=== PATIENT | male | born 1945 | race Caucasian/White ===

== ENCOUNTER → 2016-11-21 | Outpatient (CLI) | payer MEDICARE, OTHER ==
--- NOTE | 2016-11-21 10:49 | REP ---
TWO VIEW CHEST: Two views of the chest are performed. Comparison 05/07/2014. Possible 2.5 cm nodular opacity is seen inferiorly and posteriorly on the lateral view. I see no infiltrate bilaterally. The heart is normal in size. There is mild calcification and tortuosity of the thoracic aorta. The mediastinal silhouette is unremarkable and unchanged. There are degenerative changes of the spine. IMPRESSION: Possible nodule inferiorly and posteriorly as seen on the lateral view. Recommend CT of the chest to further evaluate. Signed by Fer Lopez MD 11/21/2016 03:53 P
== END ==
LOC: M SMT 10:02
PROVIDERS: ATTEND Physician Assistant
DX: J45.901 Unspecified asthma with (acute) exacerbation (principal)
CPT/HCPCS: 71020; 94010; 96372; G0463; J1040

== ENCOUNTER → 2016-11-22 | Outpatient (CLI) | payer MEDICARE, OTHER ==
[2016-11-22 18:07] LABS: ANION GAP 4 MEQ/L (8-16); BLOOD UREA NITROGEN 21 MG/DL (7-18); CALCIUM LEVEL 9.1 MG/DL (8.8-10.2); CARBON DIOXIDE LEVEL 31 MEQ/L (21-32); CHLORIDE LEVEL 103 MEQ/L (98-107); CREATININE FOR GFR 0.96 MG/DL (0.70-1.30); GLOMERULAR FILTRATION RATE > 60.0 (>42); GLUCOSE, FASTING 141 MG/DL (83-110); POTASSIUM SERUM 4.5 MEQ/L (3.5-5.1); SODIUM LEVEL 138 MEQ/L (136-145)
== END ==
LOC: M SMT 13:54
PROVIDERS: ATTEND Physician Assistant
DX: R93.8 Abnormal findings on diagnostic imaging of other specified body structures (principal)

== ENCOUNTER → 2016-11-25 | Outpatient (CLI) | payer MEDICARE, OTHER ==
[~2016-11-25] MED LIST: ISOVUE-370 76% 100ML VIAL (Q9967) As Ordered ONE
--- NOTE | 2016-11-25 09:34 | REP ---
CT of the chest with IV contrast: Comparison is the PA and lateral plain film study dated 11/21/2016 demonstrated a possible mass superimposed over the posterior aspect of the approximate T10 vertebral body on the lateral view. There are no masses or nodules. There are no infiltrates or effusions. 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 There is marked hypertrophy accompanying the osteoarthritic changes at the T10 level on the right, likely accounting for the mass-like density on the comparison plain film study. There is no mediastinal or hilar adenopathy. There is no axillary adenopathy. The thoracic aorta is unremarkable. Cardiac size is normal. There is no pericardial effusion. The visualized upper abdominal contents are unremarkable. There is no adrenal mass. Impression: There are no lung masses or nodules. There is marked hypertrophy associated with osteoarthritic changes at the costovertebral junction of the right tenth rib, likely accounting for the mass-like density on the comparison plain film study. Signed by Fer Lyons MD 11/25/2016 09:25 A
== END ==
LOC: M RAD 08:17
PROVIDERS: ATTEND Physician Assistant
DX: R91.8 Other nonspecific abnormal finding of lung field (principal)
CPT/HCPCS: 71260; Q9967

== ENCOUNTER → 2017-05-04 | Outpatient (CLI) | payer MEDICARE, OTHER ==
[2017-05-04 07:09] LABS: MEAN CORPUSCULAR HGB CONC 34.1 g/dl (32.0-36.5); RED CELL DISTRIBUTION WIDTH 12.4 % (11.5-14.5); WHITE BLOOD COUNT 5.7 K/mm3 (4.0-10.0)
[2017-05-04 07:42] LABS: ALBUMIN 3.8 GM/DL (3.2-5.2); ALBUMIN/GLOBULIN RATIO 1.27 (1.00-1.93); ALKALINE PHOSPHATASE 35 U/L (45-117); ALT/SGPT 26 U/L (12-78); ANION GAP 5 MEQ/L (8-16); AST/SGOT 20 U/L (15-37); BILIRUBIN,TOTAL 0.4 MG/DL (0.2-1.0); BLOOD UREA NITROGEN 17 MG/DL (7-18); CALCIUM LEVEL 8.6 MG/DL (8.8-10.2); CARBON DIOXIDE LEVEL 32 MEQ/L (21-32); CHLORIDE LEVEL 102 MEQ/L (98-107); CHOLESTEROL LEVEL 138 MG/DL (<200); FREE T4 0.92 NG/DL (0.76-1.46); GLOMERULAR FILTRATION RATE > 60.0 (>42); GLUCOSE, FASTING 84 MG/DL (83-110); POTASSIUM SERUM 4.5 MEQ/L (3.5-5.1); SODIUM LEVEL 139 MEQ/L (136-145); TOTAL PROTEIN 6.8 GM/DL (6.4-8.2); TRIGLYCERIDES LEVEL 79 MG/DL (<150)
[2017-05-04 09:36] LABS: FOLATE 15.1 NG/ML (>5.4); VITAMIN B12 LEVEL 174 PG/ML (247-911)
[2017-05-06 00:08] LABS: Lyme Disease IgG/IgM Antibodie <0.91 ISR (0.00-0.90); Lyme Disease IgM Ab Quantitati <0.80 index (0.00-0.79)
== END ==
LOC: M LAB 06:14
PROVIDERS: ATTEND Family Medicine
DX: R53.83 Other fatigue (principal); E78.00 Pure hypercholesterolemia, unspecified; W57.XXXA Bitten or stung by nonvenomous insect and other nonvenomous arthropods, initial encounter; S30.861A Insect bite (nonvenomous) of abdominal wall, initial encounter; Y92.9 Unspecified place or not applicable; Y93.9 Activity, unspecified; Y99.9 Unspecified external cause status

== ENCOUNTER → 2018-01-24 | Outpatient (REF) | payer MEDICARE, OTHER, SELFPAY | LOC: M SFHCLERA 13:41 | DX: L82.1 Other seborrheic keratosis (principal) | CPT/HCPCS: 88305 ==

== ENCOUNTER → 2018-04-16 | Outpatient (REF) | payer MEDICARE, OTHER ==
[2018-04-16 19:00] LABS: BASO % 0.3 % (0.0-1.0); EOS # 0.1 10^3/uL (0.0-0.50); EOS % 0.7 % (0.0-3.0); HEMATOCRIT 43.3 % (42.0-52.0); HEMOGLOBIN 14.8 g/dl (13.5-17.5); IMMATURE GRANULOCYTE % 0.3 % (0-3.0); LYMPH # 1.1 10^3/uL (1.5-4.5); LYMPH % 15.3 % (24.0-44.0); MEAN CORPUSCULAR HEMOGLOBIN 32.9 pg (27.0-33.0); MEAN CORPUSCULAR HGB CONC 34.2 g/dl (32.0-36.5); MEAN CORPUSCULAR VOLUME 96.2 fl (80.0-96.0); MONO # 0.7 10^3/uL (0.0-0.8); MONO % 9.6 % (0.0-5.0); NEUTROPHILS # 5.2 10^3/uL (1.8-7.7); NEUTROPHILS % 73.8 % (36.0-66.0); PLATELET COUNT, AUTOMATED 169 10^3/uL (150-450); RED CELL DISTRIBUTION WIDTH 12.5 % (11.5-14.5); WHITE BLOOD COUNT 7.1 10^3/uL (4.0-10.0)
[2018-04-16 19:25] LABS: ALBUMIN 3.9 GM/DL (3.2-5.2); ALBUMIN/GLOBULIN RATIO 1.18 (1.00-1.93); ALKALINE PHOSPHATASE 44 U/L (45-117); ALT/SGPT 25 U/L (12-78); ANION GAP 10 MEQ/L (8-16); AST/SGOT 20 U/L (7-37); BILIRUBIN,TOTAL 0.6 MG/DL (0.2-1.0); BLOOD UREA NITROGEN 18 MG/DL (7-18); CARBON DIOXIDE LEVEL 25 MEQ/L (21-32); CHLORIDE LEVEL 103 MEQ/L (98-107); GLOMERULAR FILTRATION RATE > 60.0 (>42); GLUCOSE, FASTING 108 MG/DL (70-100); POTASSIUM SERUM 4.2 MEQ/L (3.5-5.1); SODIUM LEVEL 138 MEQ/L (136-145); TOTAL PROTEIN 7.2 GM/DL (6.4-8.2)
== END ==
LOC: M SFHCPLAZ 14:40
DX: R19.7 Diarrhea, unspecified (principal)
CPT/HCPCS: 80053

== ENCOUNTER → 2018-05-01 | Outpatient (CLI) | payer MEDICARE, OTHER | LOC: M ADAMS 10:19 | DX: M51.34 Other intervertebral disc degeneration, thoracic region (principal); R91.8 Other nonspecific abnormal finding of lung field; R05 Cough; I11.9 Hypertensive heart disease without heart failure; E78.4 Other hyperlipidemia | CPT/HCPCS: 82607 ==

== ENCOUNTER → 2019-07-02 | Outpatient (REF) | payer MEDICARE, OTHER ==
[2019-07-02 11:20] LABS: HEMOGLOBIN 14.4 g/dl (13.5-17.5); MEAN CORPUSCULAR HEMOGLOBIN 34.2 pg (27.0-33.0); MEAN CORPUSCULAR HGB CONC 32.7 g/dl (32.0-36.5); MEAN CORPUSCULAR VOLUME 104.5 fl (80.0-96.0); PLATELET COUNT, AUTOMATED 188 10^3/uL (150-450); RED BLOOD COUNT 4.21 10^6/uL (4.30-6.10); WHITE BLOOD COUNT 7.7 10^3/uL (4.0-10.0)
[2019-07-02 11:55] LABS: ALBUMIN 3.7 GM/DL (3.2-5.2); ALT/SGPT 26 U/L (12-78); BILIRUBIN,TOTAL 0.6 MG/DL (0.2-1.0); BLOOD UREA NITROGEN 15 MG/DL (7-18); CARBON DIOXIDE LEVEL 30 MEQ/L (21-32); CHLORIDE LEVEL 106 MEQ/L (98-107); CHOLESTEROL LEVEL 146 MG/DL (<200); CHOLESTEROL RISK RATIO 2.179 (<5); CREATININE FOR GFR 0.97 MG/DL (0.70-1.30); GLOMERULAR FILTRATION RATE > 60.0 (>42); GLUCOSE, FASTING 89 MG/DL (70-100); HDL CHOLESTEROL 67 MG/DL (>40); LDL CHOLESTEROL 62 MG/DL (<100); NON-HDL-C 79 MG/DL; POTASSIUM SERUM 5.2 MEQ/L (3.5-5.1); SODIUM LEVEL 141 MEQ/L (136-145); TOTAL PROTEIN 6.9 GM/DL (6.4-8.2); TRIGLYCERIDES LEVEL 84 MG/DL (<150)
[2019-07-02 11:57] LABS: VITAMIN B12 LEVEL 1238 PG/ML (247-911)
== END ==
LOC: M SFHCADAM 09:03
PROVIDERS: ATTEND Family Medicine
DX: E53.8 Deficiency of other specified B group vitamins (principal); E78.5 Hyperlipidemia, unspecified; I11.9 Hypertensive heart disease without heart failure
CPT/HCPCS: 80053; 80061; 82607; 85027; G0463

== ENCOUNTER 2019-07-22 09:03 | Emergency (ER) | payer MEDICARE, OTHER ==
[~2019-07-22] VITALS: Ht 177.8 cm; Wt 91.4 kg
[2019-07-22] MEDS ORDERED: EPLE25TA (09:11)
[2019-07-22] MEDS ORDERED: ASPI81TA33 (09:11)
[2019-07-22] MEDS ORDERED: SILO8CAP (09:11)
[2019-07-22] MEDS ORDERED: MONT10TA2 (09:11)
[2019-07-22] MEDS ORDERED: IPRATROPIUM 0.5MG/ALBUTEROL 2.5MG INH SOL UD 3ML (DUONEB)(J7620) NEB ONE (09:30)
[2019-07-22 09:44] LABS: BASO % 0.5 % (0.0-1.0); EOS # 0.4 10^3/uL (0.0-0.5); EOS % 4.7 % (0.0-3.0); HEMATOCRIT 44.6 % (42.0-52.0); HEMOGLOBIN 14.8 g/dl (13.5-17.5); LYMPH # 2.6 10^3/uL (1.5-5.0); LYMPH % 32.1 % (24.0-44.0); MEAN CORPUSCULAR HEMOGLOBIN 33.2 pg (27.0-33.0); MEAN CORPUSCULAR HGB CONC 33.2 g/dl (32.0-36.5); MONO # 0.7 10^3/uL (0.0-0.8); MONO % 8.9 % (0.0-5.0); NEUTROPHILS # 4.3 10^3/uL (1.5-8.5); NEUTROPHILS % 52.8 % (36.0-66.0); PLATELET COUNT, AUTOMATED 182 10^3/uL (150-450); RED BLOOD COUNT 4.46 10^6/uL (4.30-6.10); WHITE BLOOD COUNT 8.1 10^3/uL (4.0-10.0)
--- NOTE | 2019-07-22 10:01 | REP ---
Clinical: Cough and shortness of breath. Technique: PA and lateral. Comparison: 05/01/2018. Findings: Mediastinum and cardiac silhouette stable. Lung vergara are clear. No acute consolidation, effusion, or pneumothorax. Skeletal structures intact. Impression: Stable chest x-ray. No acute cardiopulmonary process appreciated. Electronically Signed by Josh Raygoza MD 07/22/2019 09:52 A
[2019-07-22 10:09] LABS: INFLUENZA A AMPLIFICATION NEGATIVE (NEGATIVE); INFLUENZA B AMPLIFICATION NEGATIVE (NEGATIVE)
[2019-07-22 10:17] LABS: BLOOD UREA NITROGEN 16 MG/DL (7-18); CALCIUM LEVEL 8.9 MG/DL (8.8-10.2); CARBON DIOXIDE LEVEL 28 MEQ/L (21-32); CHLORIDE LEVEL 105 MEQ/L (98-107); GLOMERULAR FILTRATION RATE > 60.0 (>42); GLUCOSE, FASTING 97 MG/DL (70-100); NT-PRO BNP 22 PG/ML (<450); POTASSIUM SERUM 4.4 MEQ/L (3.5-5.1); SODIUM LEVEL 139 MEQ/L (136-145)
[2019-07-22 10:46] VITALS: BP 163/83
[2019-07-22] MEDS ORDERED: BENZ200C70 PO (11:10)
[2019-07-22] MEDS ORDERED: MUCI600T31 PO (11:10)
[2019-07-22] MEDS ORDERED: VENTAER INH (11:10)
== END 2019-07-22 11:18 | disposition home or self-care (01) ==
LOC: M ED 09:03
DX: J45.901 Unspecified asthma with (acute) exacerbation (principal); C61 Malignant neoplasm of prostate; I10 Essential (primary) hypertension; Z79.51 Long term (current) use of inhaled steroids; Z79.82 Long term (current) use of aspirin; Z79.899 Other long term (current) drug therapy

== ENCOUNTER → 2020-04-13 | Outpatient (CLI) | payer MEDICARE, OTHER ==
[~2020-04-13] MED LIST changes: +ASPI81TA33; +BENZ200C70 PO; +EPLE25TA; -ISOVUE-370 76% 100ML VIAL (Q9967) As Ordered ONE; +MONT10TA4; +MUCI600T31 PO; +SILO8CAP; +VENTAER INH
[2020-04-13 06:55] LABS: BASO % 0.6 % (0.0-1.0); EOS # 0.2 10^3/uL (0.0-0.5); EOS % 3.4 % (0.0-3.0); HEMATOCRIT 42.5 % (42.0-52.0); HEMOGLOBIN 14.5 g/dl (13.5-17.5); LYMPH # 2.7 10^3/uL (1.5-5.0); MEAN CORPUSCULAR HEMOGLOBIN 33.3 pg (27.0-33.0); MEAN CORPUSCULAR HGB CONC 34.1 g/dl (32.0-36.5); MEAN CORPUSCULAR VOLUME 97.5 fl (80.0-96.0); MONO # 0.8 10^3/uL (0.0-0.8); MONO % 12.5 % (0.0-5.0); NEUTROPHILS # 2.9 10^3/uL (1.5-8.5); NEUTROPHILS % 42.9 % (36.0-66.0); PLATELET COUNT, AUTOMATED 181 10^3/uL (150-450); RED BLOOD COUNT 4.36 10^6/uL (4.30-6.10); WHITE BLOOD COUNT 6.7 10^3/uL (4.0-10.0)
[2020-04-13 07:58] LABS: ALBUMIN 3.9 GM/DL (3.2-5.2); ALT/SGPT 27 U/L (12-78); BILIRUBIN,TOTAL 0.4 MG/DL (0.2-1.0); BLOOD UREA NITROGEN 18 MG/DL (7-18); CALCIUM LEVEL 9.1 MG/DL (8.8-10.2); CARBON DIOXIDE LEVEL 31 MEQ/L (21-32); CHLORIDE LEVEL 104 MEQ/L (98-107); CHOLESTEROL LEVEL 169 MG/DL (<200); CHOLESTEROL RISK RATIO 3.129 (<5); CREATININE FOR GFR 0.91 MG/DL (0.70-1.30); GLOMERULAR FILTRATION RATE > 60.0 (>42); GLUCOSE, FASTING 94 MG/DL (70-100); HDL CHOLESTEROL 54 MG/DL (>40); LDL CHOLESTEROL 100 MG/DL (<100); NON-HDL-C 115 MG/DL; POTASSIUM SERUM 4.5 MEQ/L (3.5-5.1); SODIUM LEVEL 138 MEQ/L (136-145); TRIGLYCERIDES LEVEL 75 MG/DL (<150)
== END ==
LOC: M LAB 06:04
PROVIDERS: ATTEND Family Medicine
DX: J45.909 Unspecified asthma, uncomplicated (principal); I10 Essential (primary) hypertension

== ENCOUNTER → 2020-04-21 | Outpatient (CLI) | payer MEDICARE, OTHER ==
[2020-04-21 10:14] LABS: BLOOD UREA NITROGEN 25 MG/DL (7-18); CALCIUM LEVEL 9.6 MG/DL (8.8-10.2); CARBON DIOXIDE LEVEL 27 MEQ/L (21-32); CHLORIDE LEVEL 106 MEQ/L (98-107); CREATININE FOR GFR 1.08 MG/DL (0.70-1.30); GLOMERULAR FILTRATION RATE > 60.0 (>42); GLUCOSE, FASTING 81 MG/DL (70-100); POTASSIUM SERUM 4.6 MEQ/L (3.5-5.1); SODIUM LEVEL 140 MEQ/L (136-145)
== END ==
LOC: M LAB 08:54
PROVIDERS: ATTEND Family Medicine
DX: I11.9 Hypertensive heart disease without heart failure (principal)

== ENCOUNTER → 2020-09-02 | Outpatient (REF) | payer MEDICARE, OTHER ==
[~2020-09-02] MED LIST changes: +MONT10TA10; -MONT10TA4
== END ==
LOC: M SFHCADAM 16:28
PROVIDERS: ATTEND Family Medicine
DX: R19.7 Diarrhea, unspecified (principal)
CPT/HCPCS: G0463; U0003

== ENCOUNTER → 2020-09-03 | Outpatient (REF) | payer MEDICARE, OTHER ==
[~2020-09-03] MED LIST changes: -MONT10TA10; +MONT5TAB2
== END ==
LOC: M LAB REF 09:30
PROVIDERS: ATTEND Family Medicine
DX: R19.7 Diarrhea, unspecified (principal)

== ENCOUNTER → 2020-10-07 | Outpatient (CLI) | payer MEDICARE, OTHER ==
[~2020-10-07] MED LIST changes: -ASPI81TA33; +ASPI81TA33 PO; +CHOL4PW PO; -EPLE25TA; +EPLE25TA PO; +LOSA50TA88 PO; +MONT10TA10; -MONT5TAB2; +RAPA8CAP4 PO
== END ==
LOC: M LABSMTC 10:08
PROVIDERS: ATTEND Anesthesiology
DX: Z01.812 Encounter for preprocedural laboratory examination (principal); Z20.822 Contact with and (suspected) exposure to COVID-19

== ENCOUNTER 2020-10-12 13:20 | Day surgery (SDC) | payer MEDICARE, OTHER ==
[~2020-10-12] VITALS: Ht 177.8 cm; Wt 94.3 kg
[~2020-10-12 13:20] MED LIST changes: +NS 1,000 ML IV ONE
--- OUTSIDE RECORDS SUMMARY | 2020-10-12 13:25 | CCD | Continuity of Care Document ---
Author Author Robin DIAS M.D. Organization Unknown Address [address] [place] [address] Phone [phone] Care Team Providers Care Lithographic Press Operator Name Role Phone Robbin Mcdonough M.D. AUTM [phone] Problems Active Problems Provider Date Diarrhea Rayo Dias M.D. Onset: 10/01/19 21 Screening for malignant neoplasm of colon Josh NavarroNPavithra Onset: 10/02/2012 Social History Type Date Description Comments Sex Unknown ETOH Use Occasionally Tobacco Use Start: Unknown Patient has never smoked Allergies, Adverse Reactions, Alerts Description No Known Drug Allergies Medications Active Medications SIG Qnty Indications Ordering Provide r Date Sutab [id number] Tablets as directed 1box Rayo Dias M.D. 10/01/2020 Cholestyramine 4gm Packet Use 1 Packet Mixed With Water Or Non Carbonated Drink Daily U nknown Eplerenone 25mg Tablets Kayce Owen,DO Losartan Potassium 50mg Tablets Take 1 Tablet By Mouth Every Day Unknown Montelukast Sodium 10mg Tablets TK 1 T PO qd Unknown Silodosin 8mg Capsules Take 1 Capsule By Mouth After Dinner Unknown Zenpep [id number] Caps DR Part Unknown Aspirin Ec Low Dose 81mg Tablets DR Unknown Immunizations Description No Information Available Vital Signs Date Vital Result Comment 10/01/2020 3:27pm Height 70 inches 5'10" Weight 209.00 lb BP Systolic 132 mmHg BP Diastolic 84 mmHg Heart Rate 77 /min BMI (Body Mass Index) 30.0 kg/m2 Weight 94.802 kg Body Temperature 97.5 F 10/02/2012 9:36am Height 70 inches 5'10" Weight 213.00 lb BP Systolic 120 mmHg BP Diastolic 82 mmHg Heart Rate 66 /min BMI (Body Mass Index) 30.6 kg/m2 Weight 96.617 kg Results Description No Information Available Procedures Description No Information Available Medical Devices Description No Information Available Encounters Description No Information Available Assessments Date Code Description Provider 10/01/2020 R19.4 Altered bowel function Rayo Dias M.D. Plan of Treatment Future Appointment(s):* 10/12/2020 2:30 pm - Rayo Dias M.D. at Main Office 10/01/2020 - Rayo Dias M.D.* R19.4 Altered bowel function* Comments:* 75 yo wm who presents for a colonoscopy due to a h/o diarrhea since . Last scope was in 2012. No c/o abdominal pain, weight loss, change in bowel habits, or rectal bleeding. No family h/o colon cancer. No h/o chest pain, or sob. Plan:1.Set up colonoscopy + biopsies.2.Informed consent given. Functional Status Description No Information Available Mental Status Description No Information Available Referrals Description No Information Available
--- OUTSIDE RECORDS SUMMARY | 2020-10-12 13:25 | CCD ---
Author Author [facility] Organization [facility] Address Unknown Phone Unavailable Care Team Providers Care Ceramic Artist Name Role Phone Robbin Mcdonough Unavailable PROBLEMS Type Condition ICD9-CM Code [id number] Code Onset Dates Condition S tatus SNOMED Code Notes Problem Actinic keratosis L57.0 Active 771087371 Problem Malignant neoplasm of prostate C61 Active 3 48245110 Problem Other hyperlipidemia E78.4 Active 67406655 Problem Pancreatic insufficiency K86.8 Active 6579699 1 Problem Sleep pattern disturbance G47.20 Active 232711 01 Problem Hypertensive heart disease without heart failure I 11.9 Active 15341538 Problem H/O head and neck radiation Z92.3 Active 1612 31615 no change on US 2006, 2008, 2013 Problem Pain in right knee M25.561 Active 45019650 Problem Mild persistent asthma without complication J45.30 Active 008470368 advised to stop inhaled steroid by ophtho 11/06 Problem Xerosis cutis L85.3 Active 86124184 Problem B12 deficiency due to diet E53.8 Active 61102 4004 Problem Pain in left knee M25.562 Active 15543805 Problem Moderate persistent asthmatic bronchitis with ac desiree exacerbation J45.41 Active 058745816010773 Problem Other chronic pain G89.29 Active 19372467 Problem Seborrheic keratoses L82.1 Active 958697991 Problem Macular degeneration (senile) of retina, unspecified H35.30 Active 576776332 Problem Dyslipidemia E78.5 Active 061530581 Problem Medicare annual wellness visit, subsequent Z00.00 Active 142803532 ALLERGIES Allergen (clinical drug ingredient) Drug/Non Drug Allergy do cumented on EMR Reaction Allergy Type Onset Date Status environmental allergies hayfever symptoms Non Drug Allergy Active inhaled steroids per ophtho 4/19 Non Drug Allergy Active ENCOUNTERS from 1943 to 2020-09-18 Encounter Location Date Provider Diagnosis [facility] [place] [address] [place] [id number] Aug, Sav Mcdonough Diarrhea, unspecified type R19.7 and Hypertensive heart disease without heart failure I11.9 IMMUNIZATIONS Vaccine Route Administration Date Status Pneumococcal 0.5mL (Prevnar 13) IM Intramuscular Jul 02, 2015 Administered Influenza (High Dose 65 & up) IM Intramuscular Jul 02, 2015 A dministered Influenza (High Dose 65 & up) IM Intramuscular Jul 21, 2016 A dministered Depo-Medrol 80mg (Methylprednisolone Acetate) IM Intramuscular A pril 2016 Administered Zoster 0.65mL (Zostavax) Unknown Mar 31, 2009 Adminis tered Zoster 50mcg/0.5mL (Shingrix) Unknown May 20, 2019 Ad ministered Influenza (Pharmacy Given) Unknown Aug 07, 2019 Admin istered Influenza (6mo & up) Fluzone IM Intramuscular May 13, 2010 Ad ministered Depo-Medrol 80mg (Methylprednisolone Acetate) IM Intramuscular D 2018 Administered Pneumococcal Adult 0.5mL (Pneumovax 23) Unknown Mar 31, 2009 Administered Influenza (6mo & up) Fluzone Unknown November 05, 2014 Ref used Influenza (6mo & up) Fluzone Unknown October 28, 2014 Ref used Influenza (6mo & up) Fluzone Unknown Oct 17, 2014 Ref used Influenza (6mo & up) Fluzone IM Intramuscular May 06, 2014 Ad ministered Influenza (6mo & up) Fluzone IM Intramuscular Jul 16, 2013 Ad ministered Influenza (6mo & up) Fluzone IM Intramuscular Jul 03, 2012 Ad ministered Influenza (6mo & up) Fluzone IM Intramuscular Jun 08, 2011 Ad ministered SOCIAL HISTORY Tobacco Use: Social History Observation Description Date Details (start date - stop date) Never Smoker Sex Assigned At : Social History Observation Description Sex Assigned At Unknown Audit Question Answer Notes Total Score: 2 Interpretation: Alcohol Education Sexual Hx: Question Answer Notes Had sex in the last 12 months (vaginal, oral, or anal)? Yes Have you ever had an STD? No with Women only Drug and Alcohol Question Answer Notes Total Score: 0 Interpretation: No problems reported Alcohol Screening: Question Answer Notes Did you have a drink containing alcohol in the past year? Ye s Points 4 Interpretation Positive How often did you have six or more drinks on one occas ion in the past year? Never (0 points) How many drinks did you have on a typica l day when you were drinking in the past year? 1 or 2 (0 points) How often did you have a drink containing alcohol in t he past year? Four or more times a week (4 points) BMI Care Goal Follow-Up Question Answer Notes Above Normal BMI Follow-Up Dietary management educatio n, guidance, and counseling Tobacco Use: Question Answer Notes Are you a: never smoker REASON FOR REFERRAL No Information VITAL SIGNS Weight 215 lbs Aug, Height 70 in Aug, BMI 30.85 kg/m2 Aug, Heart Rate 94 /min Aug, Respiratory Rate 18 /min Aug, Temperature 97.6 degrees Fahrenheit Aug, Oximetry 98 Aug, Blood pressure systolic 148 mm Hg Aug, Blood pressure diastolic 82 mm Hg Aug, MEDICATIONS Medication SIG (Take, Route, Frequency, Duration) Notes Start Da te End Date Status Doxycycline Hyclate 100 MG 1 capsule Orally Twice a day for 7 da y(s) Jul, Not-Taking Cholestyramine 4 GM 1 packet mixed with water or non-carbonated drink Orally Daily for 30 day(s) Aug, Active Silodosin 8 mg TK 1 C PO EVERY DAY AFTER DINNER Oral for 90 Active Eplerenone 25 mg 1 tablet Orally Once a day for 90 days Active Advair Diskus 250-50 MCG/DOSE 1 puff Inhalation Twice a day for 30 Days Mar, Active Montelukast Sodium 10 MG 1 tablet Orally Once a day for 90 Active Aspirin EC Low Dose 81 MG 1 tablet Orally Once a day Active Losartan Potassium 50 MG 1 tablet Orally Once a day for 90 days Active Tylenol PM Extra Strength 500-25 MG 1 tablet Orally Daily at bedtime as needed Active Tessalon Perles 100 MG 1 capsule as needed Orally Three times a day Not-Taking Ventolin HFA 108 (90 Base) MCG/ACT INHALE 2 PUFFS BY M OUTH FOUR TIMES DAILY NEEDED Active PROCEDURES No Information RESULTS No Results REASON FOR VISIT follow up stool MEDICAL (GENERAL) HISTORY Type Description Date Medical History hypertension Medical History asthma- inhaled steroids were d/c 12/07 ( ophtho issues) Medical History positive PPD Medical History BPH Medical History nocturia Medical History History of radiation neck (p eriodic neck exams, [place] q 3 yrs, last 10/27, 09/02, 02/03) Medical History Nl ETT, echo, Holter at [facility] 08/02 Medical History echo 08/02: [place] 42 mm. 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, under active surveillance Dr Marcos Mclain q 4 mo Medical History pancreatic insufficiency, w/ u by Dr Mckinley[facility] [place], on pancreatic enzyme supplementation 11/03; uses sporadically Medical History mild B12 defic, on oral tx Medical History ASCVD+ risk 25% (05/08) Medical History macular degeneration , [facility] [place]; they advised he stop using inhaled steroid for his asthma 11/06 Medical History arthritis rt knee, improved with steroid injection [facility] 04/08 Medical History EPEC (e coli colitis after trip to [facility]) Surgical History tonsillectomy 1948 Surgical History knee surgery(medial meniscus removed (Sl ocum procedure) 1973 Surgical History cyst removed from left facial sinus 1980 Surgical History calcaneal exostectomy left heel 1995 Surgical History colonoscopies--hyperplastic polyp only 2 013 , 06/23, 10/03 Surgical History TRUS Biopsy--+ adenocarcinom a 09/01 samples, undergoing active surveillance Dr Marcos Mclain [place] 10/28/14, 11/04, 03/07 Goals Section No Information Health Concerns No Information MEDICAL EQUIPMENT No Information MENTAL STATUS No Information FUNCTIONAL STATUS No Information ASSESSMENTS Encounter Date Diagnosis Assessment Notes Treatment Notes Treatm ent Clinical Notes Aug, Diarrhea, unspecified type (ICD-10 - R19.7) Aug, Hypertensive heart disease without heart failure (ICD-10 - I11.9) Per JNC 8 guidelines, goal BP < 140/90 (150/90 if age >60), is meeting goal on current regimen. Advised heart-healthy diet, sodium restriction PLAN OF TREATMENT Medication Medication Name Sig Start Date Stop Date Cholestyramine 4 GM 1 packet mixed with water or non-carbonated drink Orally Daily for 30 day(s) Aug, Losartan Potassium 50 MG 1 tablet Orally Once a day for 90 days Treatment Notes Assessment Notes Clinical Notes Hypertensive heart disease without heart failure Per JNC 8 guidelines, goal BP < 140/90 (150/90 if age >60), is meeting goal on current regimen. Advised heart- healthy diet, sodium restriction Next Appt Details prn Reason: Insurance Providers Payer Name Payer Address Payer Phone Insured Name Patient Relati onship to Insured Coverage Start Date Coverage End Date MEDICARE Part A and B [address] [facility] [phone] SANJUA[place] DEL REAL self [facility] [address] [facility] [phone] SANJUANA DEL REAL self
--- OUTSIDE RECORDS SUMMARY | 2020-10-12 13:25 | CCD ---
Author Author [facility] Organization [facility] Address Unknown Phone Unavailable Care Team Providers Care Rn Surgical [facility] Name Role Phone Kayce Perry Unavailable PROBLEMS Type Condition ICD9-CM Code [id number] Code Onset Dates Condition S tatus SNOMED Code Notes Problem Actinic keratosis L57.0 Active 120423086 Problem Malignant neoplasm of prostate C61 Active 3 45865881 Problem Other hyperlipidemia E78.4 Active 23467145 Problem Pancreatic insufficiency K86.8 Active 3851540 1 Problem Sleep pattern disturbance G47.20 Active 898039 01 Problem Hypertensive heart disease without heart failure I 11.9 Active 65971416 Problem H/O head and neck radiation Z92.3 Active 1618 28242 no change on US 2006, 2008, 2012 Problem Pain in right knee M25.561 Active 77331379 Problem Mild persistent asthma without complication J45.30 Active 984297561 advised to stop inhaled steroid by ophtho 3/19 Problem Xerosis cutis L85.3 Active 65024372 Problem B12 deficiency due to diet E53.8 Active 80145 4004 Problem Pain in left knee M25.562 Active 01365448 Problem Moderate persistent asthmatic bronchitis with ac tlingit & haida exacerbation J45.41 Active 157167681662281 Problem Other chronic pain G89.29 Active 83889883 Problem Seborrheic keratoses L82.1 Active 002586136 Problem Macular degeneration (senile) of retina, unspecified H35.30 Active 768171950 Problem Dyslipidemia E78.5 Active 993749735 Problem Medicare annual wellness visit, subsequent Z00.00 Active 546687143 ALLERGIES Allergen (clinical drug ingredient) Drug/Non Drug Allergy do cumented on EMR Reaction Allergy Type Onset Date Status environmental allergies hayfever symptoms Non Drug Allergy Active inhaled steroids per ophtho 4/19 Non Drug Allergy Active ENCOUNTERS from 1943 to 2020-09-16 Encounter Location Date Provider Diagnosis [facility] [place] [address] [place] [id number] 13 Aug, 21 Kayce Brayden-Tartell Diarrhea, unspecified type R19.7 IMMUNIZATIONS Vaccine Route Administration Date Status Influenza (Pharmacy Given) Unknown Aug 07, 2019 Admin istered Influenza (High Dose 65 & up) IM Intramuscular Jul 02, 2015 A dministered Influenza (High Dose 65 & up) IM Intramuscular Jul 21, 2016 A dministered Depo-Medrol 80mg (Methylprednisolone Acetate) IM Intramuscular A pril 2016 Administered Pneumococcal Adult 0.5mL (Pneumovax 23) Unknown Mar 31, 2009 Administered Zoster 0.65mL (Zostavax) Unknown Mar 31, 2009 Adminis tered Zoster 50mcg/0.5mL (Shingrix) Unknown May 20, 2019 Ad ministered Influenza (6mo & up) Fluzone IM Intramuscular May 13, 2010 Ad ministered Depo-Medrol 80mg (Methylprednisolone Acetate) IM Intramuscular D 2018 Administered Pneumococcal 0.5mL (Prevnar 13) IM Intramuscular Jul 02, 2015 Administered Influenza (6mo & up) Fluzone Unknown [...] FOR REFERRAL No Information VITAL SIGNS Weight 210 lbs Aug, Height 70 in Aug, BMI 30.13 kg/m2 Aug, Heart Rate 73 /min Aug, Respiratory Rate 18 /min Aug, Temperature 96.9 degrees Fahrenheit Aug, Oximetry 97 Aug, Blood pressure systolic 124 mm Hg Aug, Blood pressure diastolic 80 mm Hg Aug, MEDICATIONS Medication SIG (Take, [...] Base) MCG/ACT INHALE 2 PUFFS BY M OUT FOUR TIMES DAILY NEEDED Active PROCEDURES No Information RESULTS No Results REASON FOR VISIT [phone]/diarrhea x 1 wk MEDICAL (GENERAL) HISTORY Type Description Date Medical History hypertension Medical History asthma- inhaled steroids were d/c 12/07 ( ophtho issues) Medical History positive PPD Medical History BPH Medical History nocturia Medical History History of radiation neck (p eriodic neck exams, [place] q 3 yrs, last 10/27, 09/02, 02/03) Medical History Nl ETT, echo, Holter at [facility] 08/02 Medical History echo 08/02: [place] 42 [...] History macular degeneration , sees [facility] [place]; they advised he stop using inhaled steroid for his asthma 11/06 Medical History arthritis rt knee, improved with steroid injection [facility] 04/08 Medical History EPEC (e coli colitis after trip to [facility]) Surgical History tonsillectomy 1948 Surgical History knee surgery(medial meniscus removed (Sl ocum procedure) 1973 Surgical History cyst removed from left facial sinus 1980 Surgical History calcaneal exostectomy left heel 1995 Surgical History colonoscopies--hyperplastic polyp only 2 013 , 06/23, 10/03 Surgical History TRUS Biopsy--+ adenocarcinom a 09/01 samples, undergoing active surveillance Dr Marcos Mclain [place] 10/28/14, 11/04, 03/07 Goals Section No Information Health Concerns No Information MEDICAL EQUIPMENT No Information MENTAL STATUS No Information FUNCTIONAL STATUS No Information ASSESSMENTS Encounter Date Diagnosis Assessment Notes Treatment Notes Treatm ent Clinical Notes Aug, Diarrhea, unspecified type (ICD-10 - R19.7) GI panel and COVID-19 ordered, advised to focus on hydration especially with electrolytes. PLAN OF TREATMENT Medication Medication Name Sig Start Date Stop Date Cholestyramine 4 GM 1 packet mixed with water or non-carbonated drink Orally Daily for 30 day(s) Aug, Losartan Potassium 50 MG 1 tablet Orally Once a day for 90 days Treatment Notes Assessment Notes Clinical Notes Diarrhea, unspecified type GI panel and COVID-19 ordered, advised to focus on hydration especially with electrolytes. Future Test Test Name Order Date Coronavirus 2019 NOSE (Send Out) COVID [id number] GASTROINTESTINAL GI PANEL (GIPANEL) [id number] Insurance Providers Payer Name Payer Address Payer Phone Insured Name Patient Relati onship to Insured Coverage Start Date Coverage End Date MEDICARE Part A and B [address] [facility] [phone] SANJUANA DEL REAL self R [facility] [address] [address] [facility] [phone] SANJUANA DEL REAL self
--- OUTSIDE RECORDS SUMMARY | 2020-10-12 13:25 | CCD | Continuity of Care Document ---
Author Author Robin DIAS M.D. Organization Unknown Address [address] [place] [address] Phone [phone] Care Team Providers Care Spindle Setter Name Role Phone Robbin Mcdonough M.D. AUTM [phone] Problems Active Problems Provider Date Diarrhea Rayo Dias M.D. Onset: 10/01/19 21 Screening for malignant neoplasm of colon Josh NavarroNPavithra Onset: 10/02/2012 Social History Type Date Description Comments Sex Unknown ETOH Use Occasionally Tobacco Use Start: Unknown Patient has never smoked Allergies, Adverse Reactions, Alerts Description No Known Drug Allergies Medications Active Medications SIG Qnty Indications Ordering Provide r Date Sutab [id number] Tablets as directed 1box Rayo Dias M.D. 10/01/2020 Cholestyramine 4gm Packet Use 1 Packet Mixed With Water Or Non Carbonated Drink Daily U nknown Eplerenone 25mg Tablets Kayce Owen,DO Losartan Potassium 50mg Tablets Take 1 Tablet By Mouth Every Day Unknown Montelukast Sodium 10mg Tablets TK 1 T PO qd Unknown Silodosin 8mg Capsules Take 1 Capsule By Mouth After Dinner Unknown Zenpep [id number] Caps DR Part Unknown Aspirin Ec Low [...] Medical Devices Description No Information Available Encounters Type Date Location Provider Dx Diagnosis Office Visit 10/01/2020 3:00p Main Office Rayo Dias M.D. R 19.4 Change in bowel habit Assessments Date Code Description Provider 10/01/2020 R19.4 Altered bowel function Rayo Dias M.D. Plan of Treatment Future Appointment(s):* 10/07/2020 7:15 am - Brittany at Main Office * 10/12/2020 2:30 pm - Rayo Dias M.D. [...]
--- OUTSIDE RECORDS SUMMARY | 2020-10-12 13:26 | CCD ---
Author Author [facility] Organization [facility] Address Unknown Phone Unavailable Care Team Providers Care Accounts Payable Specialist Name Role Phone Kayce Perry Unavailable PROBLEMS Type Condition ICD9-CM Code [id number] Code Onset Dates Condition S tatus SNOMED Code Notes Problem Actinic keratosis L57.0 Active 989006846 Problem Malignant neoplasm of prostate C61 Active 3 42219991 Problem Other hyperlipidemia E78.4 Active 34333325 Problem Pancreatic insufficiency K86.8 Active 7886098 1 Problem Sleep pattern disturbance G47.20 Active 054053 01 Problem Hypertensive heart disease without heart failure I 11.9 Active 24378576 Problem H/O head and neck radiation Z92.3 Active 1612 21178 no change on [place] 2006, 2008, 2012 Problem Pain in right knee M25.561 Active 26432654 Problem Mild persistent asthma without complication J45.30 Active 256353724 advised to stop inhaled steroid by ophtho 3/19 Problem Xerosis cutis L85.3 Active 12805687 Problem B12 deficiency due to diet E53.8 Active 36966 4004 Problem Pain in left knee M25.562 Active 65086873 Problem Moderate persistent asthmatic bronchitis with ac [place] exacerbation J45.41 Active 628890873708627 Problem Other chronic pain G89.29 Active 02055141 Problem Seborrheic keratoses L82.1 Active 389297458 Problem Macular degeneration (senile) of retina, unspecified H35.30 Active 792895083 Problem Dyslipidemia E78.5 Active 772143183 Problem Medicare annual wellness visit, subsequent Z00.00 Active 124880059 ALLERGIES Allergen (clinical drug ingredient) Drug/Non Drug Allergy do cumented on EMR Reaction Allergy Type Onset Date Status environmental allergies hayfever symptoms Non Drug Allergy Active inhaled steroids per ophtho 4/19 Non Drug Allergy Active ENCOUNTERS from 1943 to 2020-09-06 Encounter Location Date Provider Diagnosis [facility] [address] [address] [place] [id number] Aug, Kayce Perry IMMUNIZATIONS Vaccine Route Administration Date Status Influenza [...] Depo-Medrol 80mg (Methylprednisolone Acetate) IM Intramuscular D ec 2018 Administered Pneumococcal 0.5mL (Prevnar 13) IM [...] REASON FOR REFERRAL No Information VITAL SIGNS No information MEDICATIONS Medication SIG (Take, Route, Frequency, Duration) Notes Start Da te End Date Status Losartan Potassium 50 MG 1 tablet Orally Once a day for 90 days Active Tylenol PM Extra Strength 500-25 MG 1 tablet Orally Daily at bedtime as needed Active Aspirin EC Low Dose 81 MG 1 tablet Orally Once a day Active Montelukast Sodium 10 MG 1 tablet Orally Once a day for 90 Active Eplerenone 25 mg 1 tablet Orally Once a day for 90 days Active Advair Diskus 250-50 MCG/DOSE 1 puff Inhalation Twice a day for 30 Days Mar, Active Tessalon Perles 100 MG 1 capsule as needed Orally Three times a day Not-Taking Doxycycline Hyclate 100 MG 1 capsule Orally Twice a day for 7 da y(s) Jul, Not-Taking Silodosin 8 mg TK 1 C PO EVERY DAY AFTER DINNER Oral for 90 Active Ventolin HFA 108 (90 Base) MCG/ACT INHALE 2 PUFFS BY M OUTH FOUR TIMES DAILY NEEDED Active PROCEDURES No Information RESULTS No Results REASON FOR VISIT lab followup MEDICAL (GENERAL) HISTORY Type Description Date Medical History hypertension Medical History asthma- inhaled steroids were d/c 12/07 ( ophtho issues) Medical History positive PPD Medical History BPH Medical History nocturia Medical History History of radiation neck (p eriodic neck exams, [place] q 3 yrs, last 10/27, 09/02, 02/03) Medical History Nl ETT, echo, Holter at [facility] 08/02 Medical History echo 08/02: LA 42 mm. 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, under active surveillance Dr Marcos Mclain q 4 mo Medical History pancreatic insufficiency, w/ u by Dr Mckinley[facility] in [facility], on pancreatic enzyme supplementation 11/03; uses sporadically Medical History mild B12 defic, on oral tx Medical History ASCVD+ risk 25% (05/08) Medical History macular degeneration , [facility] [place]; they advised he stop using inhaled steroid for his asthma 11/06 Medical History arthritis rt knee, improved with steroid injection [facility] 04/08 Surgical History tonsillectomy 1948 Surgical History knee surgery(medial meniscus removed (Sl ocum procedure) 1973 Surgical History cyst removed from left facial sinus 1980 Surgical History calcaneal exostectomy left heel 1995 Surgical History colonoscopies--hyperplastic polyp only 2 013 , 06/23, 10/03 Surgical History TRUS Biopsy--+ adenocarcinom a 09/01 samples, undergoing active surveillance Dr Marcos Erwin 10/28/14, 11/04, 03/07 Goals Section No Information Health Concerns No Information MEDICAL EQUIPMENT No Information MENTAL STATUS No Information FUNCTIONAL STATUS No Information ASSESSMENTS No Information PLAN OF TREATMENT No Information Insurance Providers Payer Name Payer Address Payer Phone Insured Name Patient Relati onship to Insured Coverage Start Date Coverage End Date [facility] [address] [address] [facility] [phone] [phone] SANJUA[employer] DEL REAL MEDICARE Part A and B [address] [facility] [id number] [phone] SANJUANA DEL REAL
--- OUTSIDE RECORDS SUMMARY | 2020-10-12 13:26 | CCD ---
Author Author [facility] Organization [facility] Address Unknown Phone Unavailable Care Team Providers Care Corporate General Manager Name Role Phone Robbin Mcdonough Unavailable PROBLEMS Type Condition ICD9-CM Code NRE04-WN Code Onset Dates Condition S tatus SNOMED Code Notes Problem Actinic keratosis L57.0 Active 988716983 Problem Malignant neoplasm of prostate C61 Active 3 20241167 Problem Other hyperlipidemia E78.4 Active 48860448 Problem Pancreatic insufficiency K86.8 Active 5195296 1 Problem Sleep pattern disturbance G47.20 Active 310911 01 Problem Hypertensive heart disease without heart failure I 11.9 Active 35122022 Problem H/O head and neck radiation Z92.3 Active 1614 16046 no change on [place] 2006, 2008, 2013 Problem Pain in right knee M25.561 Active 00613110 Problem Mild persistent asthma without complication J45.30 Active 973395309 advised to stop inhaled steroid by ophtho 11/06 Problem Xerosis cutis L85.3 Active 23060494 Problem B12 deficiency due to diet E53.8 Active 45492 4004 Problem Pain in left knee M25.562 Active 69471719 Problem Moderate persistent asthmatic bronchitis with ac [place] exacerbation J45.41 Active 841749312175506 Problem Other chronic pain G89.29 Active 55067494 Problem Seborrheic keratoses L82.1 Active 624360379 Problem Macular degeneration (senile) of retina, unspecified H35.30 Active 545997553 Problem Dyslipidemia E78.5 Active 889575723 Problem Medicare annual wellness visit, subsequent Z00.00 Active 086954392 ALLERGIES Allergen (clinical drug ingredient) Drug/Non Drug Allergy do cumented on EMR Reaction Allergy Type Onset Date Status environmental allergies hayfever symptoms Non Drug Allergy Active inhaled steroids per ophtho 4/19 Non Drug Allergy Active ENCOUNTERS from 1943 to 2020-09-02 Encounter Location Date Provider [facility] [address] [place] [id number] Aug, Robbin Mcdonough IMMUNIZATIONS Vaccine Route Administration Date Status Influenza [...] Information RESULTS No Results REASON FOR VISIT GI Issues MEDICAL (GENERAL) HISTORY Type Description Date Medical History hypertension Medical History asthma- inhaled steroids were d/c 12/07 ( ophtho issues) Medical History positive PPD Medical History BPH Medical History nocturia Medical History History of radiation neck (p eriodic neck exams, [place] q 3 yrs, last 10/27, 09/02, 02/03) Medical History Nl ETT, echo, Holter at [facility] 08/02 Medical History echo 08/02: [place] 42 mm. 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, under active surveillance Dr Marcos Mclain q 4 mo Medical History pancreatic insufficiency, w/ u by Dr Mckinley/ [facility] in [facility], on pancreatic enzyme supplementation 11/03; uses sporadically Medical History mild B12 defic, on oral tx Medical History ASCVD+ risk 25% (05/08) Medical History macular degeneration , [facility] [place]; they advised he stop using inhaled steroid for his asthma 11/06 Medical History arthritis rt knee, improved with steroid injection [facility] 04/08 Surgical History tonsillectomy 194 Surgical History knee surgery(medial meniscus removed (Sl ocum procedure) 1973 Surgical History cyst removed from left facial sinus 1980 Surgical History calcaneal exostectomy left heel 1995 Surgical History colonoscopies--hyperplastic polyp only 2 013 , 06/23, 10/03 Surgical History TRUS Biopsy--+ adenocarcinom a 09/01 samples, undergoing active surveillance Dr Marcos Mclain [place] 10/28/14, 11/04, 03/07 Goals Section No Information Health Concerns No Information MEDICAL EQUIPMENT No Information MENTAL STATUS No Information FUNCTIONAL STATUS No Information ASSESSMENTS No Information PLAN OF TREATMENT No Information Insurance Providers Payer Name Payer Address Payer Phone Insured Name Patient Relati onship to Insured Coverage Start Date Coverage End Date MEDICARE Part A and B [address] [facility] [phone] [place]JUA[place] REAL [facility] [address] [address] [facility] [phone] SANJUANA DEL REAL self
--- OUTSIDE RECORDS SUMMARY | 2020-10-12 13:26 | CCD ---
Author Author [facility] Organization [facility] Address Unknown Phone Unavailable Care Team Providers Care Student Name Role Phone Noble Dias MD Unavailable Unavailable Noble Dias MD Unavailable Unavailable Noble Dias MD Unavailable Unavailable Noble Dias MD Unavailable Unavailable Noble Dias MD Unavailable Unavailable Noble Dias MD Unavailable Unavailable Noble Dias MD Unavailable Unavailable Noble Dias MD Unavailable Unavailable Noble Dias MD Unavailable Unavailable Noble Dias MD Unavailable Unavailable Noble Dias MD Unavailable Unavailable Noble Dias MD Unavailable Unavailable Noble Dias MD Unavailable Unavailable Noble Dias MD Unavailable Unavailable Noble Dias MD Unavailable Unavailable Noble Dias MD Unavailable Unavailable Noble Dias MD Unavailable Unavailable Noble Dias MD Unavailable Unavailable Noble Dias MD Unavailable Unavailable Noble Dias MD Unavailable Unavailable Noble Dias MD Unavailable Unavailable Noble Dias MD Unavailable Unavailable Noble Dias MD Unavailable Unavailable Noble Dias MD Unavailable Unavailable Noble Dias MD Unavailable Unavailable Noble Dias MD Unavailable Unavailable Noble Dias MD Unavailable Unavailable Noble Dias MD Unavailable Unavailable Noble Dias MD Unavailable Unavailable Noble Dias MD Unavailable Unavailable Noble Dias MD Unavailable Unavailable Noble Dias MD Unavailable Unavailable Noble Dias MD Unavailable Unavailable Noble Dias MD Unavailable Unavailable Noble Dias MD Unavailable Unavailable Noble Dias MD Unavailable Unavailable Noble Dias MD Unavailable Unavailable Noble Dias MD Unavailable Unavailable Noble Dias MD Unavailable Unavailable Noble Dias MD Unavailable Unavailable Noble Dias MD Unavailable Unavailable Noble Dias MD Unavailable Unavailable Noble Dias MD Unavailable Unavailable Noble Dias MD Unavailable Unavailable Noble Dias MD Unavailable Unavailable Noble Dias MD Unavailable Unavailable Noble Dias MD Unavailable Unavailable Noble Dias MD Unavailable Unavailable Noble Dias MD Unavailable Unavailable Noble Dias MD Unavailable Unavailable Mclain, N Po MD Unavailable Unavailable Mclain, N Po MD Unavailable Unavailable Mclain, N Po MD Unavailable Unavailable Mclain, N Po MD Unavailable Unavailable Mclain, N Po MD Unavailable Unavailable Mclain, N Po MD Unavailable Unavailable Mclain, N Po MD Unavailable Unavailable Mclain, N Po MD Unavailable Unavailable Mclain, N Po MD Unavailable Unavailable Mclain, N Po MD Unavailable Unavailable Mclain, N Po MD Unavailable Unavailable Mclain, N Po MD Unavailable Unavailable Mclain, N Po MD Unavailable Unavailable Mclain, N Po MD Unavailable Unavailable Mclain, N Po MD Unavailable Unavailable Mclain, N Po MD Unavailable Unavailable Mclain, N Po MD Unavailable Unavailable Mclian, N Po MD Unavailable Unavailable Mclain, N Po MD Unavailable Unavailable Mclain, N Po MD Unavailable Unavailable Mclain, N Po MD Unavailable Unavailable Mclain, N Po MD Unavailable Unavailable Mclain, N Po MD Unavailable Unavailable Mclain, N Po MD Unavailable Unavailable Mclain, N Po MD Unavailable Unavailable Mclain, N Po MD Unavailable Unavailable Mclain, N Po MD Unavailable Unavailable Mclain, N Po MD Unavailable Unavailable Mclain, N Po MD Unavailable Unavailable Mclain, N Po MD Unavailable Unavailable Mclain, N Po MD Unavailable Unavailable Mclain, N Po MD Unavailable Unavailable Mclain, N Po MD Unavailable Unavailable Mclain, N Po MD Unavailable Unavailable Mclain, N Po MD Unavailable Unavailable Mclain, N Po MD Unavailable Unavailable Mclain, N Po MD Unavailable Unavailable Mclain, N Po MD Unavailable Unavailable Mclain, N Po MD Unavailable Unavailable Mclain, N Po MD Unavailable Unavailable Mclain, N Po MD Unavailable Unavailable Mclain, N Po MD Unavailable Unavailable Mclain, N Po MD Unavailable Unavailable Mclain, N Po MD Unavailable Unavailable Mclain, N Po MD Unavailable Unavailable Mclain, N Po MD Unavailable Unavailable Mclain, N Po MD Unavailable Unavailable Mclain, N Po MD Unavailable Unavailable Mclain, N Po MD Unavailable Unavailable Mclain, N Po MD Unavailable Unavailable Mclain, N Po MD Unavailable Unavailable Mclain, N Po MD Unavailable Unavailable Mclain, N Po MD Unavailable Unavailable Mclain, N Po MD Unavailable Unavailable Mclain, N Po MD Unavailable Unavailable Mclain, N Po MD Unavailable Unavailable Mclain, N Po MD Unavailable Unavailable Mclain, N Po MD Unavailable Unavailable Mclain, N Po MD Unavailable Unavailable Mclain, N Po MD Unavailable Unavailable Mclain, N Po MD Unavailable Unavailable Mclain, N Po MD Unavailable Unavailable Mclain, N Po MD Unavailable Unavailable Mclain, N Po MD Unavailable Unavailable Mclain, N Po MD Unavailable Unavailable Mclain, N Po MD Unavailable Unavailable Mclain, N Po MD Unavailable Unavailable Mclain, N Po MD Unavailable Unavailable Mclain, N Po MD Unavailable Unavailable Mclain, N Po MD Unavailable Unavailable Mclain, N Po MD Unavailable Unavailable Mclain, N Po MD Unavailable Unavailable Mclain, N Po MD Unavailable Unavailable Mclain, N Po MD Unavailable Unavailable Mclain, N Po MD Unavailable Unavailable Mclain, N Po MD Unavailable Unavailable Mclain, N Po MD Unavailable Unavailable Mclain, N Po MD Unavailable Unavailable Mclain, N Po MD Unavailable Unavailable Mclain, N Po MD Unavailable Unavailable Mclain, N Po MD Unavailable Unavailable Mclain, N Po MD Unavailable Unavailable Mclain, N Po MD Unavailable Unavailable Mclain, N Po MD Unavailable Unavailable Mclain, N Po MD Unavailable Unavailable Mclain, N Po MD Unavailable Unavailable Mclain, N Po MD Unavailable Unavailable Mclain, N Po MD Unavailable Unavailable Mclain, N Po MD Unavailable Unavailable Mclain, N Po MD Unavailable Unavailable Mclain, N Po MD Unavailable Unavailable Mclain, N Po MD Unavailable Unavailable Mclain, N Po MD Unavailable Unavailable Mclain, N Po MD Unavailable Unavailable Mclain, N Po MD Unavailable Unavailable Mclain, N Po MD Unavailable Unavailable Mclain, N Po MD Unavailable Unavailable Josh DIAS DO Unavailable [phone] Josh DIAS DO Unavailable [phone] Josh DIAS DO Unavailable [phone] Josh DIAS DO Unavailable [phone] Josh DIAS DO Unavailable [phone] Josh DIAS DO Unavailable [phone] Josh DIAS DO Unavailable [phone] Josh DIAS DO Unavailable [phone] Josh DIAS DO Unavailable [phone] RODGERJosh DO Unavailable [phone] RODGERJosh DO Unavailable [phone] RODGERJosh DO Unavailable [phone] RODGERJosh DO Unavailable [phone] RODGERJosh DO Unavailable [phone] RODGERJosh DO Unavailable [phone] Josh DIAS DO Unavailable [phone] Josh DIAS DO Unavailable [phone] Josh DIAS DO Unavailable [phone] Josh DIAS DO Unavailable [phone] Josh DIAS DO Unavailable [phone] Josh DIAS DO Unavailable [phone] Re-disclosure Warning The records that you are about to access may contain information from federally-assisted alcohol or drug abuse programs. If such information is present, then the following federally mandated warning applies: This information has been disclosed to you from records protected by federal confidentiality rules (42 CFR part 2). The federal rules prohibit you from making any further disclosure of this information unless further disclosure is expressly permitted by the written consent of the person to whom it pertains or as otherwise permitted by 42 CFR part 2. A general authorization for the release of medical or other information is NOT sufficient for this purpose. The Federal rules restrict any use of the information to criminally investigate or prosecute any alcohol or drug abuse patient.The records that you are about to access may contain highly sensitive health information, the redisclosure of which is protected by Article 27-F of the [facility] Public Health law. If you continue you may have access to information: Regarding HIV / AIDS; Provided by facilities licensed or operated by the [facility] Office of Mental Health; or Provided by the [facility] Office for People With Developmental Disabilities. If such information is present, then the following [place] mandated warning applies: This information has been disclosed to you from confidential records which are protected by state law. State law prohibits you from making any further disclosure of this information without the specific written consent of the person to whom it pertains, or as otherwise permitted by law. Any unauthorized further disclosure in violation of state law may result in a fine or chcf sentence or both. A general authorization for the release of medical or other information is NOT sufficient authorization for further disc losure. Allergies and Adverse Reactions Type Description Substance Reaction Status Data Source(s ) Allergy to substance No Known Allergies No known allergies (situation ) EFREN (Juancarlos Aguirre MD [facility]) Allergy to substance No Known Allergies No known allergies (situation ) EFREN (Juancarlos Aguirre MD [facility]) Family History Family Member Name Family Member Gender Family Member Status Date o f Status Description Data Source(s) Unknown Male Problem MEDENT ([facility]) Unknown Male Problem MEDENT ([facility] () Unknown Unknown Problem MEDENT ([facility]) Unknown Male Problem MEDENT ([facility] [place]) Encounters Encounter Providers Location Date Indications Data Source(s ) Outpatient Attender: Rayo Dias MD Main Office 10/01/2020 02:00:00 PM EST MEDENT ([facility]) [place] [address] [address] 09/11/2020 12:00:00 AM EST [facility]CW1 ([facility] [place] [address] [address] 09/06/2020 12:00:00 AM EST [facility]CW1 ([facility] [place] [address] [address] 09/02/2020 12:00:00 AM EST eCW1 ([facility]) Unknown [address] [facility] [place] [address] 08/31/2020 12:00:00 AM EST eCW1 ([facility]) [place]patient [address] [address] 07/29/2020 12:00:00 AM EST eCW1 ([facility]) Unknown [address] [facility] [address] 06/11/2020 12:00:00 AM EDT eCW1 ([facility]) Outpatient<td ID="encounterTypeDescripti onID0">6 Month Follow-Up</td><td>Leon Dias DO</td><td>Juancarlos Rivera MD [facility]</td><td>05/01/2020</td><td>7:43AM</td><td>10/15/2019 11:59PM</td><td> <content ID="encounterDiagnosisID0-0">Cataract Senile Cortical</content>, <content ID="encounterDiagnosisID0-1">Cataract Senile Nuclear</content>, <content ID="encounterDiagnosisID0-2">Central Serous Chorioretinopathy</content></td> Attender: LEON Potts MD [facility] 05/01/2020 07:43:00 AM EDT - 10/15/2019 11:59:00 PM ES T Central Serous ChorioretinopathyCataract Senile NuclearCataract Senile Cortical EFREN (Juancarlos Aguirre MD [facility]) Central Serous Chorioretinopathy Cataract Senile Nuclear Cataract Senile Cortical Outpatient Attender: Marcos Brunner[facility] 04/08 11:40:00 AM EDT MEDENT [facility] [address] [place] [id number] 01/01/2020 12:00:00 AM EDT eCW1 ([facility] hospital) Outpatient<td ID="encounterTypeDescripti onID1">1 Year Follow-Up</td><td>Leon Dias DO</td><td>Juancarlos Rivera MD [facility]</td><td>10/15/2019</td><td>9:36AM</td><td>10:33AM</td><td><content ID="encounterDiagnosisID1-0">Cataract Senile Cortical</content>, <content ID="encounterDiagnosisID1-1">Cataract Senile Nuclear</content></td> Attender: LEON Potts MD [facility] 10/15/2019 09:36:00 AM EST - 10/15/2019 10:33:00 AM EST Cataract Senile NuclearCataract Senile CorticalCataract Senile NuclearCataract Senile Cortical EFREN (Juancarlos Aguirre MD [facility]) Cataract Senile Nuclear Cataract Senile Cortical Cataract Senile Nuclear Cataract Senile Cortical Medications Medication Brand Name Start Date Product Form Dose Route Admi nistrative Instructions Pharmacy Instructions Status Indications Reaction Description Data Source(s) 1.479-0.188 gram 10/01/2020 12:00:00 AM EST tablet 24 TAKE DIRECTED TAKE DIRECTED SOLD: 10/06/2020 [facility] Sutab Sutab 10/01/2020 12:00:00 AM EST active MEDENT ([facility]) 4 gram 09/12/2020 12:00:00 AM EST powder in packet 30 USE 1 PACKET MIXED WITH WATER OR NON-CARBONATED DRINK DAILY USE 1 PACKET MIXED WITH WATER OR NON- CARBONATED DRINK DAILY SOLD: 09/13/2020 [facility] Cholestyramine Resin 66.7 MG/ML Oral Suspension Choles tyramine 4 GM Cholestyramine 4 GM 09/11/2020 12:00:00 AM EST 1.0 {packet_mixed_with_water_or_non-carbonated_drink} active Cholestyramine 4 GM eCW1 ([facility]) Cholestyramine Resin 66.7 MG/ML Oral Suspension Choles tyramine 4 GM Cholestyramine 4 GM 09/11/2020 12:00:00 AM EST 1.0 {packet_mixed_with_water_or_non-carbonated_drink} active Cholestyramine 4 GM eCW1 ([facility]) 250-50 mcg/dose 05/27/2020 12:00:00 AM EDT blister with elmo ce 60 INHALE 1 PUFF BY MOUTH TWO TIMES A DAY INHALE 1 PUFF BY MOUTH TWO TIMES A DAY SOLD: 05/28/2020 [facility] 250-50 mcg/dose 05/27/2020 12:00:00 AM EDT blister with elmo ce 60 INHALE 1 PUFF BY MOUTH TWO TIMES A DAY INHALE 1 PUFF BY MOUTH TWO TIMES A DAY SOLD: 08/06/2020 [facility] 50 mg 04/14/2020 12:00:00 AM EDT tablet 30 TAKE ONE TABLET BY MOUTH EVERY DAY TAKE ONE TABLET BY MOUTH EVERY DAY SOLD: 04/14/2020 [facility] 2 ML Sodium Hyaluronate 10 MG/ML Prefilled Syringe [Euflexxa ] Euflexxa 01/17/2020 12:00:00 AM EDT active MEDENT ([facility]) Insurance Providers Payer name Policy type / Coverage type Policy ID Covered alliance party ID Covered alliance party's relationship to peguero Policy Peguero Plan Information [facility] [id number] SP [id number] MEDICARE [id number] SP [id number] [facility] [id number] SP [id number] [employer] [place] Supplemental Policy 0 Self 0 Medicare Part B [facility] Other 0 Se lf 0 [employer] [place] Supplemental Policy 0 Self 0 Medicare Part B [facility] Other 0 Se lf 0 ANSI-Not a Secondary Insurance [id number] ANSI-Commercial [id number] ANSI-Commercial [id number] ANSI-Medicare Part B [id number] ANSI-Not a Secondary Insurance [id number] ANSI-Commercial [id number] ANSI-Medicare Part B [id number] ANSI-Commercial [id number] ANSI-Medicare Part B [id number] ANSI-Commercial [id number] ANSI-Not a Secondary Insurance [id number] ANSI-Commercial [id number] ANSI-Commercial [id number] ANSI-Not a Secondary Insurance [id number] ANSI-Commercial [id number] ANSI-Medicare Part B [id number] ANSI-Medicare Part B [id number] ANSI-Not a Secondary Insurance [id number] ANSI-Commercial [id number] ANSI-Commercial [id number] Medicare Medigap Part B [id number] Self [id number] [employer] Medigap Part B [id number] Self [id number] Umr Medigap Part B [id number] Self [id number] Medicare Medicare Primary [id number] Self [id number] [employer] (pr) Medigap Part B [id number] Self [id number] Umr (pr) Medigap Part B [id number] Self [id number] Medicare Dme Supplies Medigap Part B [id number] Self [id number] [place] Primary [id number] Self [id number] ANSI-Commercial [id number] ANSI-Medicare Part B [id number] ANSI-Commercial [id number] ANSI-Not a Secondary Insurance [id number] ANSI-Commercial [id number] ANSI-Commercial [id number] ANSI-Medicare Part B [id number] ANSI-Not a Secondary Insurance [id number] ANSI-Not a Secondary Insurance [id number] ANSI-Medicare Part B [id number] ANSI-Commercial [id number] ANSI-Commercial [id number] ANSI-Commercial [id number] ANSI-Not a Secondary Insurance [id number] ANSI-Commercial [id number] ANSI-Medicare Part B [id number] ANSI-Commercial [id number] ANSI-Medicare Part B [id number] ANSI-Commercial [id number] ANSI-Not a Secondary Insurance [id number] ANSI-Medicare Part B [id number] ANSI-Not a Secondary Insurance [id number] ANSI-Commercial [id number] ANSI-Commercial [id number] MEDICARE [id number] T ANSI-Commercial [id number] ANSI-Not a Secondary Insurance [id number] ANSI-Commercial [id number] ANSI-Medicare Part B [id number] ANSI-Medicare Part B [id number] ANSI-Not a Secondary Insurance [id number] ANSI-Commercial [id number] ANSI-Commercial [id number] ANSI-Commercial [id number] ANSI-Not a Secondary Insurance [id number] ANSI-Commercial [id number] ANSI-Medicare Part B [id number] [employer] [id number] SP [id number] SELF PAY ONLY [id number] SP [id number] Medicare Medicare Primary [id number] Self [id number] [employer] Medigap Part B [id number] Self [id number] [employer] (pr) Medigap Part B [id number] Self [id number] [place] Primary [id number] Self [id number] [place] Medigap Part B [id number] Self [id number] Medicare Medicare Primary [id number] Self [id number] Medicare Medicare Primary [id number] Self [id number] [employer] [id number] SP [id number] MEDICARE [id number] SP [id number] T [place] [id number] 0 [id number] Medicare Part B [place] Division [id number] [place] Medigap Part B Ppo Self Ppo Medicare Medicare Primary Self [employer] [id number] SP [id number] [place] Medigap Part B Self Medicare [place] Gov't Servi Medicare Primary Self MEDICARE [id number] SP [id number] B MEDICARE [id number] SP [id number] A [employer] Claims Workers Compensation Self [employer] Medigap Part B Self Medicare [place] Medicare Primary Self MEDICARE A [id number] Self [id number] A [employer] U [id number] Self [id number] A [id number] Problems, Conditions, and Diagnoses Code Display Name Description Problem Type Effective Dates Data Source(s) 65908737 Diarrhea Diarrhea Problem 10/01/2020 12:00:00 AM ES T MEDENT ([facility]) 197870028 Central serous chorioretinopathy (disord er) Central Serous Chorioretinopathy Problem 10/15/2019 12:00:00 AM EST EFREN (Macho Aguirre MD [facility]) [id number] Central serous chorioretinopathy (disord er) Central Serous Chorioretinopathy Problem 10/15/2019 12:00:00 AM EST EFREN (Macho Aguirre MD [facility]) Surgeries/Procedures Procedure Description Date Indications Data Source(s) Intermediate Eye Exam Established Patient Intermediate Eye Exam Established Patient 05/01/2020 12:00:00 AM EDT EFREN (Macho Aguirre MD [facility]) ARTHROCENTESIS ASPIR&/INJECTION MAJOR JT/BURSA 020 12:00:00 AM EDT MEDENT ([facility] ) ARTHROCENTESIS ASPIR&/INJECTION MAJOR JT/BURSA 020 12:00:00 AM EDT MEDENT ([facility]) ARTHROCENTESIS ASPIR&/INJECTION MAJOR JT/BURSA 020 12:00:00 AM EDT MEDENT ([facility]) Surgical / procedural history Tonsillec akbar 1949. Knee Surgery 1973. Cyst Removed 1980. Calcaneal Exostectomy left heel 1995. Colonoscopy 2012 Surgical / procedural history Tonsillectomy 1949. Knee Surgery 1974. Cyst Removed 1980. Calcaneal Exostectomy left heel 1995. Colonoscopy 201210/15/2019 12:00:00 AM EST EFREN (Juancarlos Aguirre MD [facility]) Intermediate Eye Exam Established Patient Intermediate Eye Exam Established Patient 10/15/2019 12:00:00 AM EST EFREN (Macho Aguirre MD [facility]) Reported medical history Prostate Cancer 2015 Reporte d medical history Prostate Cancer 2015 10/15/2019 12:00:00 AM EST EFREN (Zhao Aguirre MD [facility]) Not currently wearing eyeglasses Not currently wearing eyegl asses 10/15/2019 12:00:00 AM EST EFREN (Juancarlos Aguirre MD [facility]) History of hypertension History of hypertension 10/15/2019 12:00:00 AM EST EFREN (Juancarlos Aguirre MD [facility]) History of asthma History of asthma 10/15/2019 12:00:00 AM EST EFREN (Juancarlos Aguirre MD [facility]) No recent change in medical history No recent change in medi flo history 10/15/2019 12:00:00 AM EST EFREN (Juancarlos lorenz MD [facility]) Intermediate Eye Exam Established Patient Intermediate Eye Exam Established Patient 10/15/2019 12:00:00 AM EST EFREN (Macho Aguirre MD [facility]) Results ID Date Data Source [id number] 10/07/2020 09:55:00 AM EST [facility] Name Value Range Interpretation Code Description Data Pina rce(s) Supporting Document(s) SARS coronavirus 2 RNA Not Detected [facility] [place] This lab was ordered by [facility] and reported by [facility]. ID Date Data Source [id number] 09/02/2020 02:10:00 PM EST [facility] Name Value Range Interpretation Code Description Data Pina rce(s) Supporting Document(s) SARS coronavirus 2 RNA Not Detected [facility] [place] This lab was ordered by [facility] and reported by [facility]. ID Date Data Source [id number] 04/08/2020 11:33:00 AM EDT [facility] ([facility] Name Value Range Interpretation Code Description Data Pina rce(s) Supporting Document(s) Protein [Presence] in Urine by Test strip Laboratory test result [facility] ([facility]) Glucose [Presence] in Urine Laboratory test result [facility] ([facility]) Ua Nitrite Laboratory test result [facility] ([facility]) Blood [Presence] in Urine by Visual Laboratory test result [facility] ([facility]) Color of Urine Laboratory test result [facility] ([facility]) Ua Leuko Laboratory test result [facility] ([facility]) Ua Specific [place] 1.020 1.003-1.030 MEDE NT ([facility]) Ketones [Presence] in Urine by Test strip Laboratory test result [facility] ([facility]) Clarity of Urine Laboratory test result [facility] ([facility]) Bilirubin.total [Presence] in Urine by Test strip Laboratory test res ult [facility] ([facility]) pH of Urine by Test strip 7.0 5.0-7.5 [facility] ([facility]) Urobilinogen [Mass/volume] in Urine by Test strip 0.2 E.U./dL 0.0-1.0 [facility] ([facility]) ID Date Data Source [id number] 03/26/2020 02:04:00 PM EDT [facility] ([facility]) Name Value Range Interpretation Code Description Data Pina rce(s) Supporting Document(s) Prostate specific Ag [Mass/volume] in Serum or Plasma 3.1 ng/mL 0.0- 4.0 [facility] ([facility]) A courtesy copy of this report has been sent to the patient, ID Date Data Source [id number] 03/27/2020 11:05:00 PM EDT [facility] Name Value Range Interpretation Code Description Data Pina rce(s) Supporting Document(s) Prostate Specific Ag, Serum 3.1 ng/mL 0.0-4.0 [place] [employer] ECLIA methodology. According to th e [employer], Serum PSA shoulddecrease and remain at undetectable levels after radicalprostatectomy. The AUA defines biochemical recurrence as an initialPSA value 0.2 ng/mL or greater followed by a subsequent confirmatoryPSA value 0.2 ng/mL or greater.Values obtained with different assay methods or kits cannot be usedinterchangeably. Results cannot be interpreted as absolute evidenceof the presence or absence of malignant disease. Procedure Social History Code Duration Value Status Description Data Source(s ) Smoking 09/11/2020 12:00:00 AM EST Never Smoker completed Never S moker eCW1 ([facility]) Smoking 09/11/2020 12:00:00 AM EST Never Smoker completed Never S moker eCW1 ([facility]) Smoking 09/02/2020 12:00:00 AM EST Never Smoker completed Never S moker eCW1 ([facility]) Smoking 09/02/2020 12:00:00 AM EST Never Smoker completed Never S moker eCW1 ([facility]) Smoking 09/02/2020 12:00:00 AM EST Never Smoker completed Never S moker eCW1 ([facility]) Smoking 05/01/2020 08:45:51 AM EDT Never smoked tobacco (findi ng) completed Never smoked tobacco (finding) EFREN (Juancarlos Aguirre MD [facility]) Smoking 04/08/2020 12:00:00 AM EDT Never Smoked Cigarettes com pleted Never Smoked Cigarettes [facility] ([facility]) Smoking 10/15/2019 10:37:21 AM EST Never smoked tobacco (findi ng) completed Never smoked tobacco (finding) EFREN (Juancarlos Aguirre MD [facility]) Vital Signs ID Date Data Source UNK Name Value Range Interpretation Code Description Data Source(s) Body temperature 97.5 [degF] 97.5 [degF] [facility] ([facility]) Body weight 94.802 kg 94.802 kg [facility]) Body mass index (BMI) [Ratio] 30.0 kg/m2 30.0 k g/m2 [facility] ([facility]) Heart rate 77 /min 77 /min [facility] ([facility]) Diastolic blood pressure 84 mm[Hg] 84 mm[Hg] [facility] ([facility]) Systolic blood pressure 132 mm[Hg] 132 mm[Hg] M EDENT ([facility]) Body weight 209.00 [lb_av] 209.00 [lb_av] MEDEN T ([facility]) Body height 70 [in_i] 70 [in_i] [facility] ([facility]) 5'10" Diastolic blood pressure 82 mm[Hg] 82 mm[Hg] eCW1 ([facility]) Systolic blood pressure 148 mm[Hg] 148 mm[Hg] e CW1 ([facility]) Body temperature 97.6 [degF] 97.6 [degF] eCW1 ( [facility]) Respiratory rate 18 /min 18 /min eCW1 ([facility]) Heart rate 94 /min 94 /min eCW1 ([facility]) Body mass index (BMI) [Ratio] 30.85 kg/m2 30.85 kg/m2 eCW1 ([facility]) Body height 70 [in_i] 70 [in_i] eCW1 ([facility]) Body weight 215 [lb_av] 215 [lb_av] eCW1 ([facility]) Diastolic blood pressure 80 mm[Hg] 80 mm[Hg] eCW1 ([facility]) Systolic blood pressure 124 mm[Hg] 124 mm[Hg] e CW1 ([facility]) Body temperature 96.9 [degF] 96.9 [degF] eCW1 ( [facility]) Respiratory rate 18 /min 18 /min eCW1 ([facility]) Heart rate 73 /min 73 /min eCW1 ([facility]) Body mass index (BMI) [Ratio] 30.13 kg/m2 30.13 kg/m2 eCW1 ([facility]) Body height 70 [in_i] 70 [in_i] eCW1 ([facility]) Body weight 210 [lb_av] 210 [lb_av] eCW1 ([facility]) Diastolic blood pressure 84 mm[Hg] 84 mm[Hg] eCW1 ([facility]) Systolic blood pressure 158 mm[Hg] 158 mm[Hg] e CW1 ([facility]) Body temperature 96.7 [degF] 96.7 [degF] eCW1 ( [facility]) Respiratory rate 18 /min 18 /min eCW1 ([facility]) Heart rate 88 /min 88 /min eCW1 ([facility]) Body mass index (BMI) [Ratio] 30.13 kg/m2 30.13 kg/m2 eCW1 ([facility]) Body height 70 [in_i] 70 [in_i] eCW1 ([facility]) Body weight 210 [lb_av] 210 [lb_av] eCW1 ([facility]) Heart rate 73 /min 73 /min [facility] ([facility]) Diastolic blood pressure 79 mm[Hg] 79 mm[Hg] [facility] ([facility]) Systolic blood pressure 194 mm[Hg] 194 mm[Hg] M EDENT ([facility]) Body mass index (BMI) [Ratio] 28.8 kg/m2 28.8 k g/m2 [facility] ([facility]) Body weight 91.174 kg 91.174 kg [facility] ([facility]) Body weight 201.00 [lb_av] 201.00 [lb_av] MACIEJ T ([facility]) Body height 70 [in_i] 70 [in_i] [facility] ([facility]) 5'10" Patient Treatment Plan of Care Planned Activity Planned Date Details Description Data Source (s) Cholestyramine Resin 66.7 MG/ML Oral Suspension 09/11/2020 12:00:00 AM EST eCW1 ([facility]) Cholestyramine Resin 66.7 MG/ML Oral Suspension 09/11/2020 12:00:00 AM EST eCW1 ([facility])
--- OUTSIDE RECORDS SUMMARY | 2020-10-12 13:26 | CCD ---
Author Author [facility] Organization [facility] Address Unknown Phone Unavailable Care Team Providers Care Shoe Cutter Name Role Phone Robbin Mcdonough Unavailable PROBLEMS Type Condition ICD9-CM Code QFE46-WM Code Onset Dates Condition S tatus SNOMED Code Notes Problem Actinic keratosis L57.0 Active 915692320 Problem Malignant neoplasm of prostate C61 Active 3 42180568 Problem Other hyperlipidemia E78.4 Active 61462446 Problem Pancreatic insufficiency K86.8 Active 7688646 1 Problem Sleep pattern disturbance G47.20 Active 646190 01 Problem Hypertensive heart disease without heart failure I 11.9 Active 74268404 Problem H/O head and neck radiation Z92.3 Active 1611 94062 no change on [place] 2006, 2008, 2013 Problem Pain in right knee M25.561 Active 43719540 Problem Mild persistent asthma without complication J45.30 Active 932997091 advised to stop inhaled steroid by ophtho 11/06 Problem Xerosis cutis L85.3 Active 26258733 Problem B12 deficiency due to diet E53.8 Active 01091 4004 Problem Pain in left knee M25.562 Active 70336074 Problem Moderate persistent asthmatic bronchitis with ac desiree exacerbation J45.41 Active 125919043052142 Problem Other chronic pain G89.29 Active 69607789 Problem Seborrheic keratoses L82.1 Active 566361685 Problem Macular degeneration (senile) of retina, unspecified H35.30 Active 040017205 Problem Dyslipidemia E78.5 Active 333644374 Problem Medicare annual wellness visit, subsequent Z00.00 Active 040922296 ALLERGIES Allergen (clinical drug ingredient) Drug/Non Drug Allergy do cumented on EMR Reaction Allergy Type Onset Date Status environmental allergies hayfever symptoms Non Drug Allergy Active inhaled steroids per ophtho 4/19 Non Drug Allergy Active ENCOUNTERS from 1945 to 2020-09-04 Encounter Location Date Provider Diagnosis [facility] [address] [place] [id number] 09 Jul, 2020 Sav Mcdonough Medicare annual wellness visit, subsequent Z00.00 ; Hypertensive heart disease without heart failure I11.9 ; Malignant neoplasm of prostate C61 ; Dyslipidemia E78.5 ; B12 deficiency due to diet E53.8 and Mild persistent asthma without complication J45.30 IMMUNIZATIONS Vaccine Route Administration Date Status Influenza [...] No Information VITAL SIGNS Weight 210 lbs Jul, Height 70 in Jul, BMI 30.13 kg/m2 Jul, Heart Rate 88 /min Jul, Respiratory Rate 18 /min Jul, Temperature 96.7 degrees Fahrenheit Jul, Oximetry 98 Jul, Blood pressure systolic 158 mm Hg Jul, Blood pressure diastolic 84 mm Hg Jul, MEDICATIONS Medication SIG (Take, Route, Frequency, Duration) [...] Information RESULTS No Results REASON FOR VISIT 3 month nirmal MEDICAL (GENERAL) HISTORY Type Description Date Medical History hypertension Medical History asthma- inhaled steroids were d/c 4/19 ( ophtho issues) Medical History positive PPD [...] History macular degeneration , sees [facility] in [place]; they advised he stop using inhaled steroid [...] samples, undergoing active surveillance Dr Marcos Mclain [place] 10/28/14, 11/04, 03/07 Goals Section No Information Health Concerns No Information MEDICAL EQUIPMENT No Information MENTAL STATUS No Information FUNCTIONAL STATUS No Information ASSESSMENTS Encounter Date Diagnosis Assessment Notes Treatment Notes Treatm ent Clinical Notes Jul, Medicare annual wellness visit, subsequent (ICD- 10 - Z00.00) age appropriate anticipatory guidance given, per USPSTF recommendations; immunizations up to date. discussed plans for implementing improvement in identified areas discussed Shingrix, advised that pt receive the two-shot series, benefits and SE reviewed. Advised obtain at participating pharmacy Jul, Hypertensive heart disease without heart failure (ICD-10 - I11.9) Per JNC 8 guidelines, goal BP < 140/90 (150/90 if age >60), is meeting goal on current regimen. Advised heart-healthy diet, sodium restriction Jul, Malignant neoplasm of prostate (ICD-10 - C61) last PSA 2.4, done by kar/Elías Jul, Dyslipidemia (ICD-10 - E78.5) Jul, B12 deficiency due to diet (ICD-10 - E53.8) Jul, Mild persistent asthma without complicat ion (ICD-10 - J45.30) advised to stop inhaled steroid by ophtho 11/06 has ALBARADO, but his retinologist has prohibited his using ICS (still uses Advair, once a day if going to be exercising) Jul, Other LDL is below tx threshold, he declines medical tx of this PLAN OF TREATMENT Treatment Notes Assessment Notes Clinical Notes Medicare annual wellness visit, subsequent age appropriate anticipatory guidance given, per USPSTF recommendations; immunizations up to date. discussed plans for implementing improvement in identified areas discussed Shingrix, advised that pt receive the two-shot series, benefits and SE reviewed. Advised obtain at participating pharmacy Hypertensive heart disease without heart failure Per JNC 8 guidelines, goal BP < 140/90 (150/90 if age >60), is meeting goal on current regimen. Advised heart- healthy diet, sodium restriction Malignant neoplasm of prostate last PSA 2.4, done by kar/Elías Mild persistent asthma without complication has ALBARADO, but his retinologist has prohibited his using ICS (still uses Advair, once a day if going to be exercising) Future Test Test Name Order Date Comprehensive Metabolic Profile (CMP) [id number] LIPID PANEL (CARDIAC RISK) 20210127 CBC - Complete Blood Count 20210127 PSA MONITOR (HX PROSTATE CA/ABNORMAL PSA) 20210127 Next Appt Details 6 Months Reason: Insurance Providers Payer Name Payer Address Payer Phone Insured Name Patient Relati onship to Insured Coverage Start Date Coverage End Date MEDICARE Part A and B [address] [facility] [phone] [employer] [facility] [address] [id number] [facility] [phone] [employer]
[2020-10-12] MEDS ORDERED: propofoL 200 MG/20 ML VIAL As Ordered ONE (14:34)
[2020-10-12] MEDS ORDERED: LIDOCAINE 2% 100MG/5ML SDV (FOR ANES.) As Ordered ONE (14:35)
[2020-10-12] MEDS ORDERED: ePHEDrine SULFATE 25 MG/5 ML(5MG/ML) SYRINGE As Ordered ONE (15:08)
--- NOTE | 2020-10-12 15:20 | ROOR ---
Patient Name: Robin Paredes Procedure Date: 10/12/2020 2:54 PM Date of : 1945 Age: 75 Room: [facility] Gender: Male Note Status: Finalized Procedure: Total Colonoscopy to Cecum + Biopsy Polypectomy Indications: Change in bowel habits Providers: Rayo Dias MD Referring MD: Robbin Mcdonough MD Requesting Provider: Medicines: Monitored Anesthesia Care Complications: No immediate complications. Procedure: Pre-Anesthesia Assessment: - The heart rate, respiratory rate, oxygen saturations, blood pressure, adequacy of pulmonary ventilation, and response to care were monitored throughout the procedure. The Colonoscope was introduced through the anus and advanced to the cecum, identified by appendiceal orifice and ileocecal valve. The colonoscopy was performed without difficulty. The patient tolerated the procedure well. The quality of the bowel preparation was excellent. Findings: The perianal and digital rectal examinations were normal. Non-bleeding internal hemorrhoids were found during retroflexion. The hemorrhoids were small and Grade I (internal hemorrhoids that do not prolapse). Multiple small-mouthed diverticula were found in the recto-sigmoid colon, sigmoid colon and descending colon. A small polyp was found in the transverse colon. The polyp was sessile. The polyp was removed with a jumbo cold forceps. Resection and retrieval were complete. The exam was otherwise without abnormality on direct and retroflexion views. Impression: - Non-bleeding internal hemorrhoids. - Diverticulosis in the recto-sigmoid colon, in the sigmoid colon and in the descending colon. - One small polyp in the transverse colon, removed with a jumbo cold forceps. Resected and retrieved. - The examination was otherwise normal on direct and retroflexion views. - The exam was otherwise normal to the cecum. Recommendation: - Patient has a contact number available for emergencies. The signs and symptoms of potential delayed complications were discussed with the patient. Return to normal activities tomorrow. Written discharge instructions were provided to the patient. - High fiber diet. - Discharge patient to home. - Continue present medications. - Await pathology results. - Telephone GI clinic for pathology results in 1 week. - Repeat colonoscopy is not recommended due to current age (66 years or older) for screening purposes. - Return to referring physician. - The findings and recommendations were discussed with the patient. Procedure Code(s): --- Professional --- 04010, Colonoscopy, flexible; with biopsy, single or multiple Diagnosis Code(s): --- Professional --- K64.0, First degree hemorrhoids K63.5, Polyp of colon R19.4, Change in bowel habit K57.30, Diverticulosis of large intestine without perforation or abscess without bleeding CPT copyright 2019 [employer]. All rights reserved. The codes documented in this report are preliminary and upon slot floor attendant review may be revised to meet current compliance requirements. Rayo Dias MD Rayo Dias MD 10/12/2020 3:20:02 PM Electronically signed by Rayo Dias MD Number of Addenda: 0 Note Initiated On: 10/12/2020 2:54 PM Estimated Blood Loss: Estimated blood loss: none.
[2020-10-12 15:50] VITALS: BP 141/89
== END 2020-10-12 15:52 | disposition home or self-care (01) ==
LOC: M OPP 13:20
PROVIDERS: ATTEND Internal Medicine Gastroenterology
DX: R19.4 Change in bowel habit (principal); D12.3 Benign neoplasm of transverse colon; K64.0 First degree hemorrhoids; K57.30 Diverticulosis of large intestine without perforation or abscess without bleeding; I10 Essential (primary) hypertension; J45.909 Unspecified asthma, uncomplicated; Z85.46 Personal history of malignant neoplasm of prostate; Z92.3 Personal history of irradiation; Z79.82 Long term (current) use of aspirin; Z79.899 Other long term (current) drug therapy

== ENCOUNTER → 2020-11-14 | Outpatient (CLI) | payer MEDICARE, OTHER ==
[~2020-11-14] MED LIST changes: -NS 1,000 ML IV ONE
== END ==
LOC: M LABSMTC 07:57
PROVIDERS: ATTEND Anesthesiology
DX: Z01.812 Encounter for preprocedural laboratory examination (principal); Z20.822 Contact with and (suspected) exposure to COVID-19

== ENCOUNTER 2020-11-19 07:12 | Day surgery (SDC) | payer MEDICARE, OTHER ==
[~2020-11-19] VITALS: Ht 177.8 cm; Wt 95.8 kg
[~2020-11-19 07:12] MED LIST changes: +CEFUROXIME 1MG/0.1ML INTRACAMERAL INJ As Ordered ONE; +DUOVISC (0.50ML VISCOAT/0.55ML PROVISC) OPHTH KIT As Ordered ONE; +OFLOXACIN 0.3 % (OCUFLOX) OPTH SOL 5ML OS ONE; +PHENYLEPHRINE 2.5% OPHTH SOL 2ML OS ONE; +POVIDONE-IODINE 5% OPHTH PREP SOL 30ML As Ordered ONE; +PROPARACAINE 0.5% OPHTH SOL 15ML OS ONE; +TROPICAMIDE 1% OPHTH SOLN 2ML OS ONE
[2020-11-19] MEDS ORDERED: fentaNYL 100 MCG/2 ML INJECTION (J3010) As Ordered ONE (07:18)
[2020-11-19] MEDS ORDERED: MIDAZOLAM INJ 2MG/2ML VIAL (J2250 PER 1MG) As Ordered ONE (07:19)
[2020-11-19] MEDS ORDERED: BSS IRR 500ML/OMIDRIA 4ML IRR BAG (OR ONLY) As Ordered ONE (07:25)
[2020-11-19] MEDS ORDERED: ACETYLCHOLINE OPHTH SOLN 1% 2ML (MIOCHOL-E) As Ordered ONE (09:12)
[2020-11-19 09:45] VITALS: BP 177/81
--- NOTE | 2020-11-20 11:22 | RO ---
OPERATIVE NOTE DATE OF OPERATION: 11/19/2020 PREOPERATIVE DIAGNOSIS: 1. Visually significant nuclear sclerotic cataract, left eye. POSTOPERATIVE DIAGNOSIS: 1. Visually significant nuclear sclerotic cataract, left eye. PROCEDURE: 1. Cataract extraction with use of phacoemulsification, and placement of intraocular lens, AU00T0, D 19.0, left eye. SURGEON: Dylan Dias DO ANESTHESIA: Local (Omidria with MAC) COMPLICATIONS: None POSTOPERATIVE CONDITION: Stable INDICATIONS FOR SURGERY: 1. Blurred vision affecting patient's activities of daily living. DESCRIPTION OF PROCEDURE: The patient was seen in the preoperative area and properly identified. The correct operative eye was identified and marked. The patient received topical anesthetic, antibiotics, and topical dilating drops. The patient was then transferred to the operating room. The correct side was re-identified and a time-out was performed. The eye was prepped and draped in a sterile fashion. The eyelids were isolated with Tegaderm tape and the lids were held open with an adjustable speculum. A 1.0-mm paracentesis incision was made. Omidria was then injected into the anterior chamber. Viscoelastic was then injected into the anterior chamber through the paracentesis. Using a 2.4-mm sharp-tipped keratome, the anterior chamber was entered via a temporal clear cornea incision. A continuous curvilinear capsulorrhexis was created with Utrata forceps. Hydrodissection was performed with BSS on a blunt cannula until the nucleus was able to rotate freely. The crystalline lens was phacoemulsified and aspirated. Irrigation/aspiration was used to remove the cortical material Cohesive viscoelastic was placed into the capsular bag to deepen it. The implant was placed into the capsular bag and allowed to unfold. Placement was confirmed by visualizing the anterior capsulorrhexis. Irrigation/aspiration was used to remove the viscoelastic. The clear corneal incision was hydrated with BSS on a blunt cannula. The lens was well positioned. Intracameral antibiotic was injected into the anterior chamber. The incisions were then tested for leaks and found to be negative. The eye was then palpated for appropriate pressure and adjusted accordingly with BSS. The eyelid speculum was then carefully removed. A shield was placed over the eye. The patient tolerated the procedure well and was discharge to the recovery unit in a stable condition.
== END 2020-11-19 09:45 | disposition home or self-care (01) ==
LOC: M SDC 07:12
PROVIDERS: ATTEND Ophthalmology
DX: H25.12 Age-related nuclear cataract, left eye (principal); I10 Essential (primary) hypertension; J45.909 Unspecified asthma, uncomplicated; Z85.46 Personal history of malignant neoplasm of prostate; Z92.3 Personal history of irradiation; Z79.82 Long term (current) use of aspirin; Z79.899 Other long term (current) drug therapy
CPT/HCPCS: 66984; J1097; J2250; J3010; V2632

== ENCOUNTER → 2021-02-03 | Outpatient (CLI) | payer MEDICARE, OTHER ==
[~2021-02-03] MED LIST changes: -CEFUROXIME 1MG/0.1ML INTRACAMERAL INJ As Ordered ONE; -DUOVISC (0.50ML VISCOAT/0.55ML PROVISC) OPHTH KIT As Ordered ONE; -OFLOXACIN 0.3 % (OCUFLOX) OPTH SOL 5ML OS ONE; -PHENYLEPHRINE 2.5% OPHTH SOL 2ML OS ONE; -POVIDONE-IODINE 5% OPHTH PREP SOL 30ML As Ordered ONE; -PROPARACAINE 0.5% OPHTH SOL 15ML OS ONE; -TROPICAMIDE 1% OPHTH SOLN 2ML OS ONE
== END ==
LOC: M LABSMTC 11:05
PROVIDERS: ATTEND Anesthesiology
DX: Z01.812 Encounter for preprocedural laboratory examination (principal); Z20.822 Contact with and (suspected) exposure to COVID-19

== ENCOUNTER 2021-02-08 09:53 | Day surgery (SDC) | payer MEDICARE, OTHER ==
[~2021-02-08] VITALS: Ht 177.8 cm; Wt 94.3 kg
[~2021-02-08 09:53] MED LIST changes: +CEFUROXIME 1MG/0.1ML INTRACAMERAL INJ As Ordered ONE; +DUOVISC (0.50ML VISCOAT/0.55ML PROVISC) OPHTH KIT As Ordered ONE; +FLUT1BLS5; +OFLOXACIN 0.3 % (OCUFLOX) OPTH SOL 5ML OD ONE; +PHENYLEPHRINE 2.5% OPHTH SOL 2ML OD ONE; +POVIDONE-IODINE 5% OPHTH PREP SOL 30ML As Ordered ONE; +PROPARACAINE 0.5% OPHTH SOL 15ML OD ONE; +TROPICAMIDE 1% OPHTH SOLN 2ML OD ONE; +ZENP1CAP63
[2021-02-08] MEDS ORDERED: MIDAZOLAM INJ 2MG/2ML VIAL (J2250 PER 1MG) As Ordered ONE (09:59)
[2021-02-08] MEDS ORDERED: fentaNYL 100 MCG/2 ML INJECTION (J3010) As Ordered ONE (09:59)
[2021-02-08] MEDS ORDERED: BSS IRR 500ML/OMIDRIA 4ML IRR BAG (OR ONLY) As Ordered ONE (10:01)
[2021-02-08 13:30] VITALS: BP 137/74
--- NOTE | 2021-02-10 10:43 | RO ---
OPERATIVE NOTE DATE OF OPERATION: 02/08/2021 PREOPERATIVE DIAGNOSIS: 1. Visually significant nuclear sclerotic cataract, right eye. POSTOPERATIVE DIAGNOSIS: 1. Visually significant nuclear sclerotic cataract, right eye. PROCEDURE: 1. Cataract extraction with use of phacoemulsification, and placement of intraocular lens, AU00T0, 19.0 D, right eye. SURGEON: Dylan Dias DO APPRENTICE STYLIST: ANESTHESIA: Local (Omidria) with MAC. COMPLICATIONS: None POSTOPERATIVE CONDITION: Stable INDICATIONS FOR SURGERY: 1. Blurred vision affecting patient's activities of daily living. DESCRIPTION OF PROCEDURE: The patient was seen in the preoperative area and properly identified. The correct operative eye was identified and marked. The patient received topical anesthetic, antibiotics, and topical dilating drops. The patient was then transferred to the operating room. The correct side was re-identified and a time out was performed. The eye was prepped and draped in a sterile fashion. The eyelids were isolated with Tegaderm tape and the lids were held open with an adjustable speculum. A 1.0 mm paracentesis incision was made. Omidria was then injected into the anterior chamber. Viscoelastic was then injected into the anterior chamber through the paracentesis. Using a 2.4 mm sharp-tipped keratome, the anterior chamber was entered via a temporal clear cornea incision. A continuous curvilinear capsulorrhexis was created with Utrata forceps. Hydrodissection was performed with BSS on a blunt cannula until the nucleus was able to rotate freely. The crystalline lens was phacoemulsified and aspirated. Irrigation/aspiration was used to remove the cortical material Cohesive viscoelastic was placed into the capsular bag to deepen it. The implant was placed into the capsular bag and allowed to unfold. Placement was confirmed by visualizing the anterior capsulorrhexis. Irrigation/aspiration was used to remove the viscoelastic. The clear corneal incision was hydrated with BSS on a blunt cannula. The lens was well positioned. Intracameral antibiotic was injected into the anterior chamber. The incisions were then tested for leaks and found to be negative. The eye was then palpated for appropriate pressure and adjusted accordingly with BSS. The eyelid speculum was then carefully removed. A shield was placed over the eye. The patient tolerated the procedure well and was discharge to the recovery unit in a stable condition.
== END 2021-02-08 13:30 | disposition home or self-care (01) ==
LOC: M SDC 09:53
PROVIDERS: ATTEND Ophthalmology
DX: H25.11 Age-related nuclear cataract, right eye (principal); I10 Essential (primary) hypertension; J45.909 Unspecified asthma, uncomplicated; R06.83 Snoring; Z85.46 Personal history of malignant neoplasm of prostate; Z79.899 Other long term (current) drug therapy; Z79.82 Long term (current) use of aspirin; Z92.3 Personal history of irradiation
CPT/HCPCS: 66984; J1097; J2250; J3010; V2632

== ENCOUNTER → 2021-08-12 | Outpatient (REF) | payer MEDICARE, OTHER ==
[~2021-08-12] MED LIST changes: -CEFUROXIME 1MG/0.1ML INTRACAMERAL INJ As Ordered ONE; -DUOVISC (0.50ML VISCOAT/0.55ML PROVISC) OPHTH KIT As Ordered ONE; +LOSA50TA28 PO; -LOSA50TA88 PO; -MONT10TA10; +MONT10TA97; -OFLOXACIN 0.3 % (OCUFLOX) OPTH SOL 5ML OD ONE; -PHENYLEPHRINE 2.5% OPHTH SOL 2ML OD ONE; -POVIDONE-IODINE 5% OPHTH PREP SOL 30ML As Ordered ONE; -PROPARACAINE 0.5% OPHTH SOL 15ML OD ONE; -TROPICAMIDE 1% OPHTH SOLN 2ML OD ONE
[2021-08-12 14:50] LABS: HEMATOCRIT 42.2 % (42.0-52.0); HEMOGLOBIN 13.8 g/dl (13.5-17.5); MEAN CORPUSCULAR HEMOGLOBIN 33.2 pg (27.0-33.0); MEAN CORPUSCULAR HGB CONC 32.7 g/dl (32.0-36.5); MEAN CORPUSCULAR VOLUME 101.4 fl (80.0-96.0); PLATELET COUNT, AUTOMATED 201 10^3/uL (150-450); RED BLOOD COUNT 4.16 10^6/uL (4.30-6.10); WHITE BLOOD COUNT 7.4 10^3/uL (4.0-10.0)
[2021-08-12 15:18] LABS: ALBUMIN 3.9 GM/DL (3.2-5.2); ALT/SGPT 26 U/L (12-78); BILIRUBIN,TOTAL 0.3 MG/DL (0.2-1.0); BLOOD UREA NITROGEN 22 MG/DL (7-18); CALCIUM LEVEL 9.2 MG/DL (8.8-10.2); CARBON DIOXIDE LEVEL 29 MEQ/L (21-32); CHLORIDE LEVEL 105 MEQ/L (98-107); CHOLESTEROL LEVEL 172 MG/DL (<200); CHOLESTEROL RISK RATIO 2.774 (<5); CREATININE FOR GFR 1.09 MG/DL (0.70-1.30); FREE T4 1.02 NG/DL (0.76-1.46); GLOMERULAR FILTRATION RATE > 60.0 (>42); GLUCOSE, FASTING 93 MG/DL (70-100); HDL CHOLESTEROL 62 MG/DL (>40); LDL CHOLESTEROL 72 MG/DL (<100); NON-HDL-C 110 MG/DL; POTASSIUM SERUM 4.2 MEQ/L (3.5-5.1); SODIUM LEVEL 140 MEQ/L (136-145); THYROID STIMULATING HORMONE 0.751 uIU/ML (0.358-3.740); TRIGLYCERIDES LEVEL 191 MG/DL (<150)
[2021-08-12 15:20] LABS: VITAMIN B12 LEVEL > 2000 PG/ML (247-911)
[2021-08-12 15:25] LABS: CREATININE, URINE 65.4 MG/DL; MALB URINE SIEMENS < 5.0 MG/L; MAU/CREAT RATIO 7.6 MCG/MG (0.0-30.0)
== END ==
LOC: M SFHCADAM 13:38
PROVIDERS: ATTEND Family Medicine
DX: I11.9 Hypertensive heart disease without heart failure (principal); E78.5 Hyperlipidemia, unspecified; E53.8 Deficiency of other specified B group vitamins
CPT/HCPCS: 80053; 80061; 82043; 82607; 84439; 84443; 85027; G0463

== ENCOUNTER → 2021-08-18 | Outpatient (CLI) | payer MEDICARE, OTHER ==
[~2021-08-18] MED LIST changes: -LOSA50TA28 PO; +LOSA50TA88 PO; +MONT10TA10; -MONT10TA97
[2021-08-18 09:58] LABS: BLOOD UREA NITROGEN 23 MG/DL (7-18); CARBON DIOXIDE LEVEL 28 MEQ/L (21-32); CHLORIDE LEVEL 104 MEQ/L (98-107); CREATININE FOR GFR 0.99 MG/DL (0.70-1.30); GLOMERULAR FILTRATION RATE > 60.0 (>42); GLUCOSE, FASTING 92 MG/DL (70-100); POTASSIUM SERUM 4.3 MEQ/L (3.5-5.1); SODIUM LEVEL 136 MEQ/L (136-145)
== END ==
LOC: M WUC 08:31
PROVIDERS: ATTEND Family Medicine
DX: I11.9 Hypertensive heart disease without heart failure (principal)

== ENCOUNTER → 2021-09-02 | Outpatient (CLI) | payer MEDICARE, OTHER ==
[~2021-09-02] MED LIST changes: +LOSA50TA28 PO; -LOSA50TA88 PO; -MONT10TA10; +MONT10TA97
== END ==
LOC: M RAD 08:32
PROVIDERS: ATTEND Family Medicine
DX: I11.9 Hypertensive heart disease without heart failure (principal); R09.89 Other specified symptoms and signs involving the circulatory and respiratory systems

== ENCOUNTER 2021-09-28 09:48 | Inpatient (IN) | payer MEDICARE, OTHER ==
[~2021-09-28] VITALS: Ht 177.8 cm; Wt 94.1 kg
[2021-09-28] MEDS: MORPHINE 2 MG/ML 1ML VIAL (J2270) IV PRN ×6 (10:40→19:00)
[2021-09-28 10:49] LABS: BASO % 0.5 % (0.0-1.0); EOS # 0.1 10^3/uL (0.0-0.5); EOS % 1.2 % (0.0-3.0); HEMATOCRIT 41.3 % (42.0-52.0); HEMOGLOBIN 13.9 g/dl (13.5-17.5); LYMPH # 2.1 10^3/uL (1.5-5.0); LYMPH % 31.5 % (24.0-44.0); MEAN CORPUSCULAR HEMOGLOBIN 32.5 pg (27.0-33.0); MEAN CORPUSCULAR HGB CONC 33.7 g/dl (32.0-36.5); MEAN CORPUSCULAR VOLUME 96.5 fl (80.0-96.0); MONO # 0.6 10^3/uL (0.0-0.8); MONO % 9.8 % (2.0-8.0); NEUTROPHILS # 3.7 10^3/uL (1.5-8.5); NEUTROPHILS % 56.7 % (36.0-66.0); PLATELET COUNT, AUTOMATED 176 10^3/uL (150-450); RED BLOOD COUNT 4.28 10^6/uL (4.30-6.10); WHITE BLOOD COUNT 6.5 10^3/uL (4.0-10.0)
[2021-09-28 11:13] LABS: BLOOD UREA NITROGEN 20 MG/DL (7-18); CALCIUM LEVEL 9.4 MG/DL (8.8-10.2); CARBON DIOXIDE LEVEL 26 MEQ/L (21-32); CHLORIDE LEVEL 105 MEQ/L (98-107); CREATININE FOR GFR 0.96 MG/DL (0.70-1.30); GLOMERULAR FILTRATION RATE > 60.0 (>42); GLUCOSE, FASTING 109 MG/DL (70-100); POTASSIUM SERUM 4.1 MEQ/L (3.5-5.1); SODIUM LEVEL 140 MEQ/L (136-145)
[2021-09-28 11:38] LABS: RSV AMPLIFICATION NEGATIVE (NEGATIVE)
[2021-09-28] MEDS ORDERED: LOSA100T45 PO (12:14)
[2021-09-28] MEDS ORDERED: FLUT1INH2 INH (12:16)
[2021-09-28] MEDS ORDERED: HYDR12.55 PO (12:16)
[2021-09-28] MEDS ORDERED: INCR1INH INH (12:16)
[2021-09-28] MEDS ORDERED: AMLO1TAB25 PO (12:16)
[2021-09-28] MEDS ORDERED: MORPHINE 2 MG/ML 1ML VIAL (J2270) IV PRN ×2 (12:20)
[2021-09-28] MEDS ORDERED: HOME MED LIST COMPLETE! XX SCH (12:20)
[2021-09-28 13:05] LABS: INR 0.99; PARTIAL THROMBOPLASTIN TIME 27.5 SECONDS (25.9-37.0); PROTHROMBIN TIME 13.5 SECONDS (12.7-14.5)
[2021-09-28] MEDS ORDERED: ALBUTEROL 90 MCG/ACT 8GM HFA INHALER INH PRN (14:55)
[2021-09-28] MEDS ORDERED: propofoL 200 MG/20 ML VIAL As Ordered ONE ×2 (20:58→21:00)
[2021-09-28] MEDS ORDERED: ONDANSETRON 4MG/2ML VIAL As Ordered ONE (20:58)
[2021-09-28] MEDS ORDERED: MIDAZOLAM INJ 2MG/2ML VIAL (J2250 PER 1MG) As Ordered ONE (20:58)
[2021-09-28] MEDS ORDERED: KETAMINE HCL 200 MG/20 ML VIAL As Ordered ONE (20:58)
[2021-09-28] MEDS ORDERED: fentaNYL 100 MCG/2 ML INJECTION As Ordered ONE (20:58)
[2021-09-28] MEDS ORDERED: LIDOCAINE 2% 100MG/5ML SDV (FOR ANES.) As Ordered ONE (20:58)
[2021-09-28] MEDS ORDERED: TRANEXAMIC ACID 100 MG/ML 10ML VIAL As Ordered ONE (21:04)
[2021-09-28] MEDS ORDERED: BUPIVACAINE HCL 0.5% 30 ML VIAL As Ordered ONE (21:05)
[2021-09-28] MEDS ORDERED: ceFAZolin 1GM VIAL (J0690 PER 500MG) As Ordered ONE (21:26)
[2021-09-28] MEDS ORDERED: LIDOCAINE W/EPINEPHRINE 1% 20ML VIAL As Ordered ONE (21:26)
[2021-09-28] MEDS ORDERED: PHENYLephrine 500MCG 5ML (100MCG/ML) SYRINGE As Ordered ONE (21:46)
[2021-09-28] MEDS ORDERED: ePHEDrine SULFATE 25 MG/5 ML(5MG/ML) SYRINGE As Ordered ONE (21:53)
[2021-09-28] MEDS ORDERED: ACETAMINOPHEN 1000MG 100ML IV BTL (OFIRMEV) (J0131 PER 10MG) As Ordered ONE (23:24)
[2021-09-29] VITALS (10 sets, daily range): BP systolic 118–143; BP diastolic 59–66
[2021-09-29] MEDS ORDERED: ONDANSETRON 4MG/2ML VIAL IV PRN ×2 (00:40→01:00)
[2021-09-29] MEDS ORDERED: NORCO, ANEXSIA 5/325MG TABLET (HYDROcodone/ACETAMINOPHEN) PO PRN (00:40)
[2021-09-29] MEDS ORDERED: LR 1,000 ML IV SCH ×2 (00:40→01:00)
[2021-09-29] MEDS ORDERED: fentaNYL 100 MCG/2 ML INJECTION IV PRN (00:40)
[2021-09-29] MEDS ORDERED: oxyCODONE 5MG TAB PO PRN (01:05)
[2021-09-29] MEDS ORDERED: SENNA 8.6 MG TAB (SENOKOT) PO PRN (01:10)
[2021-09-29] MEDS: TAMSULOSIN 0.4 MG CAP PO SCH ×2 (01:11→22:25)
[2021-09-29] MEDS: oxyCODONE 5MG TAB PO PRN ×2 (01:32→22:26)
[2021-09-29] MEDS: ADVAIR HFA 230/21MCG INHALER INH SCH ×3 (03:47→17:40)
[2021-09-29] MEDS: ceFAZolin SOD 2 GM in IV 1 EA IV SCH ×2 (05:43→14:22)
[2021-09-29] MEDS: ACETAMINOPHEN TAB 650MG DOSE (2X325MG) PO SCH ×3 (05:44→17:29)
[2021-09-29 06:01] LABS: HEMATOCRIT 34.1 % (42.0-52.0); MEAN CORPUSCULAR HEMOGLOBIN 33.2 pg (27.0-33.0); MEAN CORPUSCULAR HGB CONC 33.7 g/dl (32.0-36.5); MEAN CORPUSCULAR VOLUME 98.6 fl (80.0-96.0); PLATELET COUNT, AUTOMATED 175 10^3/uL (150-450); RED BLOOD COUNT 3.46 10^6/uL (4.30-6.10); WHITE BLOOD COUNT 9.7 10^3/uL (4.0-10.0)
[2021-09-29 06:02] LABS: HEMOGLOBIN 11.5 g/dl (13.5-17.5)
[2021-09-29 06:34] LABS: ALBUMIN 3.3 GM/DL (3.2-5.2); ALT/SGPT 21 U/L (12-78); BILIRUBIN,TOTAL 0.7 MG/DL (0.2-1.0); BLOOD UREA NITROGEN 22 MG/DL (7-18); CALCIUM LEVEL 8.6 MG/DL (8.8-10.2); CARBON DIOXIDE LEVEL 21 MEQ/L (21-32); CHLORIDE LEVEL 105 MEQ/L (98-107); CREATININE FOR GFR 1.11 MG/DL (0.70-1.30); GLOMERULAR FILTRATION RATE > 60.0 (>42); GLUCOSE, FASTING 134 MG/DL (70-100); POTASSIUM SERUM 3.7 MEQ/L (3.5-5.1); SODIUM LEVEL 136 MEQ/L (136-145); TOTAL PROTEIN 6.1 GM/DL (6.4-8.2)
[2021-09-29] MEDS: traMADol 50 MG TAB PO PRN ×2 (06:38→19:48)
[2021-09-29] MEDS: TIOTROPIUM INHALER/CAPSULE (SPIRIVA) INH SCH (07:12)
[2021-09-29] MEDS ORDERED: ASPIRIN 81MG ENTERIC TABLET PO SCH (09:00)
[2021-09-29] MEDS: DOCUSATE SODIUM 100MG CAPSULE PO SCH ×2 (09:00→19:48)
[2021-09-29] MEDS: LOSARTAN 50MG TABLET PO SCH (09:00)
[2021-09-29] MEDS ORDERED: ENTER DRUG NAME HERE (PATIENT'S OWN MED) PO SCH (09:00)
[2021-09-29] MEDS: ASCORBIC ACID 500 MG TAB PO SCH (09:11)
[2021-09-29] MEDS: FERROUS SULFATE 325MG TAB PO SCH (09:11)
[2021-09-29] MEDS: NAPROXEN 250 MG TAB PO SCH ×2 (09:12→22:25)
[2021-09-29] MEDS: hydroCHLOROthiazide 12.5 MG CAPSULE PO SCH (10:06)
[2021-09-29] MEDS: ASPIRIN 81MG ENTERIC TABLET PO SCH (19:48)
[2021-09-30] MEDS: ACETAMINOPHEN TAB 650MG DOSE (2X325MG) PO SCH ×5 (05:15→23:39)
[2021-09-30 06:00] VITALS: BP 131/62
[2021-09-30] MEDS ORDERED: BISACODYL 10 MG SUPP PR PRN (07:45)
[2021-09-30] MEDS: TIOTROPIUM INHALER/CAPSULE (SPIRIVA) INH SCH (08:25)
[2021-09-30] MEDS: ADVAIR HFA 230/21MCG INHALER INH SCH ×2 (08:25→17:32)
[2021-09-30] MEDS: hydroCHLOROthiazide 12.5 MG CAPSULE PO SCH (08:52)
[2021-09-30] MEDS: ASCORBIC ACID 500 MG TAB PO SCH (08:52)
[2021-09-30] MEDS: LOSARTAN 50MG TABLET PO SCH (08:52)
[2021-09-30] MEDS: DOCUSATE SODIUM 100MG CAPSULE PO SCH ×2 (08:52→21:08)
[2021-09-30] MEDS: FERROUS SULFATE 325MG TAB PO SCH (08:52)
[2021-09-30] MEDS: MIRALAX *UNIT DOSE* 17GM PACKET PO SCH (08:53)
[2021-09-30] MEDS: ASPIRIN 81MG ENTERIC TABLET PO SCH ×2 (08:53→21:08)
[2021-09-30] MEDS: NAPROXEN 250 MG TAB PO SCH ×2 (08:54→22:00)
[2021-09-30 13:55] VITALS: BP 79/38
[2021-09-30 13:58] VITALS: BP 115/57
[2021-09-30 14:00] VITALS: BP 114/57
[2021-09-30 14:01] VITALS: BP 118/46
[2021-09-30] MEDS: SPIRONOLACTONE 25 MG TAB PO SCH (15:15)
[2021-09-30] MEDS ORDERED: NS 1,000 ML IV SCH (17:35)
[2021-09-30] MEDS: TAMSULOSIN 0.4 MG CAP PO SCH (21:08)
[2021-09-30] MEDS: oxyCODONE 5MG TAB PO PRN (21:10)
[2021-09-30 22:00] VITALS: BP 112/56
[2021-10-01] MEDS: ACETAMINOPHEN TAB 650MG DOSE (2X325MG) PO SCH ×2 (05:14→11:27)
[2021-10-01 06:00] VITALS: BP 114/54
[2021-10-01] MEDS: ADVAIR HFA 230/21MCG INHALER INH SCH (07:48)
[2021-10-01] MEDS: TIOTROPIUM INHALER/CAPSULE (SPIRIVA) INH SCH (07:48)
[2021-10-01] MEDS: MIRALAX *UNIT DOSE* 17GM PACKET PO SCH (08:55)
[2021-10-01] MEDS: ASCORBIC ACID 500 MG TAB PO SCH (08:55)
[2021-10-01] MEDS: SPIRONOLACTONE 25 MG TAB PO SCH (08:55)
[2021-10-01 08:59] LABS: HEMATOCRIT 27.7 % (42.0-52.0); HEMOGLOBIN 9.4 g/dl (13.5-17.5); MEAN CORPUSCULAR HEMOGLOBIN 34.3 pg (27.0-33.0); MEAN CORPUSCULAR HGB CONC 33.9 g/dl (32.0-36.5); MEAN CORPUSCULAR VOLUME 101.1 fl (80.0-96.0); PLATELET COUNT, AUTOMATED 138 10^3/uL (150-450); RED BLOOD COUNT 2.74 10^6/uL (4.30-6.10); WHITE BLOOD COUNT 7.1 10^3/uL (4.0-10.0)
[2021-10-01 09:00] VITALS: BP 122/57
[2021-10-01] MEDS: ASPIRIN 81MG ENTERIC TABLET PO SCH (09:00)
[2021-10-01] MEDS: LOSARTAN 50MG TABLET PO SCH (09:00)
[2021-10-01] MEDS: DOCUSATE SODIUM 100MG CAPSULE PO SCH (09:00)
[2021-10-01] MEDS: hydroCHLOROthiazide 12.5 MG CAPSULE PO SCH (09:00)
[2021-10-01] MEDS: FERROUS SULFATE 325MG TAB PO SCH (09:01)
[2021-10-01] MEDS: NAPROXEN 250 MG TAB PO SCH (09:01)
[2021-10-01 09:25] LABS: BLOOD UREA NITROGEN 19 MG/DL (7-18); CALCIUM LEVEL 8.4 MG/DL (8.8-10.2); CARBON DIOXIDE LEVEL 26 MEQ/L (21-32); CHLORIDE LEVEL 100 MEQ/L (98-107); CREATININE FOR GFR 0.82 MG/DL (0.70-1.30); GLOMERULAR FILTRATION RATE > 60.0 (>42); GLUCOSE, FASTING 148 MG/DL (70-100); POTASSIUM SERUM 3.6 MEQ/L (3.5-5.1); SODIUM LEVEL 134 MEQ/L (136-145)
== END 2021-10-01 12:55 | DRG 482 ==
LOC: EDBD 09:48 → M ED 09:48 → M ED INP 12:18 → ENRESERV 19:26 → M MS5PR 09-29 00:50
PROVIDERS: ADMIT Internal Medicine; ATTEND Family Medicine
PROC: BQ11YZZ Fluoroscopy of Left Hip using Other Contrast (ICD-10-PCS; 2021-09-28)
PROC: 0QS706Z Reposition Left Upper Femur with Intramedullary Internal Fixation Device, Open Approach (ICD-10-PCS; principal; 2021-09-28 20:00)
DX: S72.142A Displaced intertrochanteric fracture of left femur, initial encounter for closed fracture (principal); S72.122A Displaced fracture of lesser trochanter of left femur, initial encounter for closed fracture; W00.0XXA Fall on same level due to ice and snow, initial encounter; Y92.9 Unspecified place or not applicable; I10 Essential (primary) hypertension; J45.909 Unspecified asthma, uncomplicated; M19.90 Unspecified osteoarthritis, unspecified site; C61 Malignant neoplasm of prostate; Z20.822 Contact with and (suspected) exposure to COVID-19; Z79.82 Long term (current) use of aspirin; Z79.899 Other long term (current) drug therapy; I95.1 Orthostatic hypotension; K59.00 Constipation, unspecified

== ENCOUNTER 2021-09-30 10:30 | Inpatient (IN) | payer MEDICARE, OTHER ==
[~2021-09-30] VITALS: Ht 177.8 cm; Wt 94.0 kg
[~2021-09-30 10:30] MED LIST changes: +AMLO1TAB25 PO; +FLUT1INH2 INH; +HYDR12.55 PO; +INCR1INH INH; +LOSA100T45 PO
[2021-10-01 13:10] VITALS: BP 135/63
[2021-10-01] MEDS ORDERED: ALBUTEROL 90 MCG/ACT 8GM HFA INHALER INH PRN (13:25)
[2021-10-01] MEDS ORDERED: oxyCODONE 5MG TAB PO PRN (13:25)
[2021-10-01] MEDS ORDERED: BISACODYL 5 MG TAB PO PRN (13:25)
[2021-10-01] MEDS ORDERED: MIRALAX *UNIT DOSE* 17GM PACKET PO PRN (13:25)
[2021-10-01] MEDS ORDERED: HOME MED LIST COMPLETE! XX SCH (13:45)
[2021-10-01] MEDS: ACETAMINOPHEN 500 MG TAB PO SCH ×2 (14:00→21:01)
[2021-10-01] MEDS: COMBIVENT RESPIMAT 100-20MCG INHALER 4GM INH SCH ×2 (15:30→20:00)
[2021-10-01] MEDS: REMEDY PHYTOPLEX Z-GUARD PASTE 113GM TUBE (FROM STOREROOM PRODUCT) TOP SCH ×2 (16:00→20:56)
[2021-10-01 20:00] VITALS: BP 143/66
[2021-10-01] MEDS: ADVAIR HFA 230/21MCG INHALER INH SCH (20:00)
[2021-10-01] MEDS: SENNA 8.6 MG TAB (SENOKOT) PO SCH (20:57)
[2021-10-01] MEDS: DOCUSATE SODIUM 100MG CAPSULE PO SCH (20:57)
[2021-10-01] MEDS: GABAPENTIN 300 MG CAP PO SCH (21:00)
[2021-10-01] MEDS: ASPIRIN 81MG ENTERIC TABLET PO SCH (21:00)
[2021-10-01] MEDS: TAMSULOSIN 0.4 MG CAP PO SCH (21:00)
[2021-10-02 05:00] VITALS: BP 145/67
[2021-10-02] MEDS: ACETAMINOPHEN 500 MG TAB PO SCH ×3 (05:40→20:31)
[2021-10-02] MEDS: TIOTROPIUM INHALER/CAPSULE (SPIRIVA) INH SCH (07:54)
[2021-10-02] MEDS: ADVAIR HFA 230/21MCG INHALER INH SCH ×2 (07:54→20:33)
[2021-10-02] MEDS: COMBIVENT RESPIMAT 100-20MCG INHALER 4GM INH SCH ×3 (07:54→20:00)
[2021-10-02] MEDS ORDERED: ASPIRIN 81MG ENTERIC TABLET PO SCH (09:00)
[2021-10-02] MEDS ORDERED: LOSARTAN 50MG TABLET PO SCH (09:00)
[2021-10-02] MEDS: DOCUSATE SODIUM 100MG CAPSULE PO SCH ×2 (09:00→20:31)
[2021-10-02] MEDS: REMEDY PHYTOPLEX Z-GUARD PASTE 113GM TUBE (FROM STOREROOM PRODUCT) TOP SCH ×3 (09:00→20:31)
[2021-10-02 09:31] LABS: BASO % 0.3 % (0.0-1.0); EOS # 0.1 10^3/uL (0.0-0.5); EOS % 1.2 % (0.0-3.0); HEMATOCRIT 27.9 % (42.0-52.0); HEMOGLOBIN 9.3 g/dl (13.5-17.5); LYMPH # 1.3 10^3/uL (1.5-5.0); LYMPH % 17.3 % (24.0-44.0); MEAN CORPUSCULAR HEMOGLOBIN 33.3 pg (27.0-33.0); MEAN CORPUSCULAR HGB CONC 33.3 g/dl (32.0-36.5); MONO # 0.8 10^3/uL (0.0-0.8); MONO % 11.5 % (2.0-8.0); NEUTROPHILS # 5.1 10^3/uL (1.5-8.5); NEUTROPHILS % 69.4 % (36.0-66.0); PLATELET COUNT, AUTOMATED 159 10^3/uL (150-450); RED BLOOD COUNT 2.79 10^6/uL (4.30-6.10); WHITE BLOOD COUNT 7.3 10^3/uL (4.0-10.0)
[2021-10-02] MEDS: hydroCHLOROthiazide 12.5 MG CAPSULE PO SCH (09:45)
[2021-10-02] MEDS: FERROUS SULFATE 325MG TAB PO SCH (09:46)
[2021-10-02] MEDS: ASPIRIN 81MG ENTERIC TABLET PO SCH ×2 (09:46→20:30)
[2021-10-02] MEDS: SPIRONOLACTONE 25 MG TAB PO SCH (09:46)
[2021-10-02] MEDS: PANTOPRAZOLE 40MG TAB (PROTONIX) PO SCH (09:46)
[2021-10-02] MEDS: ASCORBIC ACID 500 MG TAB PO SCH (09:46)
[2021-10-02] MEDS: amLODIPine 5 MG TAB PO SCH (09:46)
[2021-10-02 10:10] LABS: ALBUMIN 2.8 GM/DL (3.2-5.2); ALT/SGPT 22 U/L (12-78); BILIRUBIN,TOTAL 0.6 MG/DL (0.2-1.0); BLOOD UREA NITROGEN 24 MG/DL (7-18); CALCIUM LEVEL 8.5 MG/DL (8.8-10.2); CARBON DIOXIDE LEVEL 26 MEQ/L (21-32); CHLORIDE LEVEL 105 MEQ/L (98-107); CREATININE FOR GFR 1.09 MG/DL (0.70-1.30); GLOMERULAR FILTRATION RATE > 60.0 (>42); GLUCOSE, FASTING 90 MG/DL (70-100); POTASSIUM SERUM 3.6 MEQ/L (3.5-5.1); SODIUM LEVEL 139 MEQ/L (136-145)
[2021-10-02 14:00] VITALS: BP 134/61
[2021-10-02 20:00] VITALS: BP 132/63
[2021-10-02] MEDS: TAMSULOSIN 0.4 MG CAP PO SCH (20:30)
[2021-10-02] MEDS: GABAPENTIN 300 MG CAP PO SCH (20:30)
[2021-10-02] MEDS: SENNA 8.6 MG TAB (SENOKOT) PO SCH (20:31)
[2021-10-03] MEDS: ACETAMINOPHEN 500 MG TAB PO SCH ×3 (05:18→20:20)
[2021-10-03 06:00] VITALS: BP 130/61
[2021-10-03] MEDS: COMBIVENT RESPIMAT 100-20MCG INHALER 4GM INH SCH ×3 (08:00→22:11)
[2021-10-03] MEDS: TIOTROPIUM INHALER/CAPSULE (SPIRIVA) INH SCH (08:18)
[2021-10-03] MEDS: ADVAIR HFA 230/21MCG INHALER INH SCH ×2 (08:19→22:11)
[2021-10-03] MEDS: PANTOPRAZOLE 40MG TAB (PROTONIX) PO SCH (08:57)
[2021-10-03] MEDS: DOCUSATE SODIUM 100MG CAPSULE PO SCH ×2 (08:57→20:19)
[2021-10-03] MEDS: FERROUS SULFATE 325MG TAB PO SCH (08:57)
[2021-10-03] MEDS: amLODIPine 5 MG TAB PO SCH (08:58)
[2021-10-03] MEDS: ASPIRIN 81MG ENTERIC TABLET PO SCH ×2 (08:58→20:17)
[2021-10-03] MEDS: ASCORBIC ACID 500 MG TAB PO SCH (08:58)
[2021-10-03] MEDS: hydroCHLOROthiazide 12.5 MG CAPSULE PO SCH (08:58)
[2021-10-03] MEDS: SPIRONOLACTONE 25 MG TAB PO SCH (08:58)
[2021-10-03] MEDS: REMEDY PHYTOPLEX Z-GUARD PASTE 113GM TUBE (FROM STOREROOM PRODUCT) TOP SCH ×3 (09:00→20:19)
[2021-10-03 14:00] VITALS: BP 150/65
[2021-10-03 19:55] VITALS: BP 169/69
[2021-10-03] MEDS: TAMSULOSIN 0.4 MG CAP PO SCH (20:17)
[2021-10-03] MEDS: GABAPENTIN 300 MG CAP PO SCH (20:18)
[2021-10-03] MEDS: SENNA 8.6 MG TAB (SENOKOT) PO SCH (20:19)
[2021-10-03 22:34] VITALS: BP 124/78
[2021-10-04] MEDS: ACETAMINOPHEN 500 MG TAB PO SCH ×3 (05:47→22:13)
[2021-10-04 06:00] VITALS: BP 148/70
[2021-10-04] MEDS: COMBIVENT RESPIMAT 100-20MCG INHALER 4GM INH SCH ×2 (08:00→14:00)
[2021-10-04] MEDS: TIOTROPIUM INHALER/CAPSULE (SPIRIVA) INH SCH (08:13)
[2021-10-04] MEDS: ADVAIR HFA 230/21MCG INHALER INH SCH (08:14)
[2021-10-04] MEDS: DOCUSATE SODIUM 100MG CAPSULE PO SCH ×2 (08:54→22:13)
[2021-10-04] MEDS: SPIRONOLACTONE 25 MG TAB PO SCH (08:54)
[2021-10-04] MEDS: PANTOPRAZOLE 40MG TAB (PROTONIX) PO SCH (08:54)
[2021-10-04] MEDS: FERROUS SULFATE 325MG TAB PO SCH (08:54)
[2021-10-04] MEDS: ASPIRIN 81MG ENTERIC TABLET PO SCH ×2 (08:54→22:13)
[2021-10-04] MEDS: ASCORBIC ACID 500 MG TAB PO SCH (08:54)
[2021-10-04] MEDS: hydroCHLOROthiazide 12.5 MG CAPSULE PO SCH (08:55)
[2021-10-04] MEDS: amLODIPine 5 MG TAB PO SCH (08:56)
[2021-10-04] MEDS: REMEDY PHYTOPLEX Z-GUARD PASTE 113GM TUBE (FROM STOREROOM PRODUCT) TOP SCH ×3 (08:56→21:00)
[2021-10-04 10:40] LABS: BASO % 0.5 % (0.0-1.0); EOS # 0.2 10^3/uL (0.0-0.5); EOS % 2.2 % (0.0-3.0); LYMPH # 1.8 10^3/uL (1.5-5.0); LYMPH % 23.2 % (24.0-44.0); MEAN CORPUSCULAR HEMOGLOBIN 33.7 pg (27.0-33.0); MEAN CORPUSCULAR HGB CONC 33.3 g/dl (32.0-36.5); MONO # 1.1 10^3/uL (0.0-0.8); MONO % 13.5 % (2.0-8.0); NEUTROPHILS # 4.7 10^3/uL (1.5-8.5); PLATELET COUNT, AUTOMATED 221 10^3/uL (150-450); RED BLOOD COUNT 2.97 10^6/uL (4.30-6.10); WHITE BLOOD COUNT 7.9 10^3/uL (4.0-10.0)
[2021-10-04 11:17] LABS: BLOOD UREA NITROGEN 20 MG/DL (7-18); CALCIUM LEVEL 9.3 MG/DL (8.8-10.2); CARBON DIOXIDE LEVEL 25 MEQ/L (21-32); CHLORIDE LEVEL 106 MEQ/L (98-107); CREATININE FOR GFR 0.86 MG/DL (0.70-1.30); GLOMERULAR FILTRATION RATE > 60.0 (>42); GLUCOSE, FASTING 91 MG/DL (70-100); POTASSIUM SERUM 4.1 MEQ/L (3.5-5.1); SODIUM LEVEL 139 MEQ/L (136-145)
[2021-10-04 14:00] VITALS: BP 137/77
[2021-10-04 21:12] VITALS: BP 131/60
[2021-10-04] MEDS ORDERED: traZODone 25MG PER 1/2 TABLET PO SCH (22:00)
[2021-10-04] MEDS: SENNA 8.6 MG TAB (SENOKOT) PO SCH (22:12)
[2021-10-04] MEDS: TAMSULOSIN 0.4 MG CAP PO SCH (22:13)
[2021-10-05] MEDS: ACETAMINOPHEN 500 MG TAB PO SCH ×3 (05:25→21:43)
[2021-10-05 05:32] VITALS: BP 148/70
[2021-10-05] MEDS: ADVAIR HFA 230/21MCG INHALER INH SCH ×2 (07:31→20:00)
[2021-10-05] MEDS: TIOTROPIUM INHALER/CAPSULE (SPIRIVA) INH SCH (07:31)
[2021-10-05] MEDS: COMBIVENT RESPIMAT 100-20MCG INHALER 4GM INH SCH ×3 (07:31→20:00)
[2021-10-05] MEDS: REMEDY PHYTOPLEX Z-GUARD PASTE 113GM TUBE (FROM STOREROOM PRODUCT) TOP SCH ×3 (09:00→21:00)
[2021-10-05] MEDS: ASCORBIC ACID 500 MG TAB PO SCH (09:12)
[2021-10-05] MEDS: PANTOPRAZOLE 40MG TAB (PROTONIX) PO SCH (09:12)
[2021-10-05] MEDS: LOSARTAN 25 MG TAB PO SCH (09:12)
[2021-10-05] MEDS: SPIRONOLACTONE 25 MG TAB PO SCH (09:12)
[2021-10-05] MEDS: hydroCHLOROthiazide 12.5 MG CAPSULE PO SCH (09:13)
[2021-10-05] MEDS: ASPIRIN 81MG ENTERIC TABLET PO SCH ×2 (09:13→21:43)
[2021-10-05] MEDS: DOCUSATE SODIUM 100MG CAPSULE PO SCH ×2 (09:13→21:00)
[2021-10-05] MEDS: FERROUS SULFATE 325MG TAB PO SCH (09:13)
[2021-10-05 14:00] VITALS: BP 134/61
[2021-10-05 15:05] LABS: MAGNESIUM LEVEL 1.9 MG/DL (1.8-2.4)
[2021-10-05] MEDS ORDERED: traZODone 25MG PER 1/2 TABLET PO PRN (16:15)
[2021-10-05 19:58] VITALS: BP 126/56
[2021-10-05] MEDS: SENNA 8.6 MG TAB (SENOKOT) PO SCH (21:00)
[2021-10-05] MEDS: traZODone 50 MG TAB PO SCH (21:44)
[2021-10-05] MEDS: MAGNESIUM GLUCONATE 500 MG TAB PO SCH (21:45)
[2021-10-05] MEDS: TAMSULOSIN 0.4 MG CAP PO SCH (21:45)
[2021-10-05] MEDS: GABAPENTIN 300 MG CAP PO SCH (21:46)
[2021-10-06 06:00] VITALS: BP 143/60
[2021-10-06] MEDS: ADVAIR HFA 230/21MCG INHALER INH SCH ×2 (07:40→20:00)
[2021-10-06] MEDS: COMBIVENT RESPIMAT 100-20MCG INHALER 4GM INH SCH ×3 (08:00→20:00)
[2021-10-06] MEDS: TIOTROPIUM INHALER/CAPSULE (SPIRIVA) INH SCH (08:27)
[2021-10-06] MEDS: FERROUS SULFATE 325MG TAB PO SCH (08:28)
[2021-10-06] MEDS: SPIRONOLACTONE 25 MG TAB PO SCH (08:28)
[2021-10-06] MEDS: PANTOPRAZOLE 40MG TAB (PROTONIX) PO SCH (08:28)
[2021-10-06] MEDS: ASPIRIN 81MG ENTERIC TABLET PO SCH ×2 (08:28→21:32)
[2021-10-06] MEDS: ASCORBIC ACID 500 MG TAB PO SCH (08:28)
[2021-10-06] MEDS: ACETAMINOPHEN 500 MG TAB PO SCH ×3 (08:29→21:33)
[2021-10-06] MEDS: REMEDY PHYTOPLEX Z-GUARD PASTE 113GM TUBE (FROM STOREROOM PRODUCT) TOP SCH ×3 (08:30→21:00)
[2021-10-06] MEDS: DOCUSATE SODIUM 100MG CAPSULE PO SCH ×2 (08:30→21:00)
[2021-10-06] MEDS: LOSARTAN 25 MG TAB PO SCH (08:30)
[2021-10-06 08:39] LABS: BASO % 0.3 % (0.0-1.0); EOS # 0.2 10^3/uL (0.0-0.5); EOS % 3.4 % (0.0-3.0); HEMATOCRIT 28.8 % (42.0-52.0); HEMOGLOBIN 9.4 g/dl (13.5-17.5); LYMPH # 1.7 10^3/uL (1.5-5.0); LYMPH % 29.9 % (24.0-44.0); MEAN CORPUSCULAR HEMOGLOBIN 33.8 pg (27.0-33.0); MEAN CORPUSCULAR HGB CONC 32.6 g/dl (32.0-36.5); MEAN CORPUSCULAR VOLUME 103.6 fl (80.0-96.0); MONO # 0.7 10^3/uL (0.0-0.8); MONO % 11.9 % (2.0-8.0); NEUTROPHILS # 3.1 10^3/uL (1.5-8.5); PLATELET COUNT, AUTOMATED 233 10^3/uL (150-450); RED BLOOD COUNT 2.78 10^6/uL (4.30-6.10); WHITE BLOOD COUNT 5.8 10^3/uL (4.0-10.0)
[2021-10-06 09:03] LABS: BLOOD UREA NITROGEN 20 MG/DL (7-18); CARBON DIOXIDE LEVEL 26 MEQ/L (21-32); CHLORIDE LEVEL 106 MEQ/L (98-107); CREATININE FOR GFR 0.87 MG/DL (0.70-1.30); GLOMERULAR FILTRATION RATE > 60.0 (>42); GLUCOSE, FASTING 116 MG/DL (70-100); SODIUM LEVEL 140 MEQ/L (136-145)
[2021-10-06 12:07] VITALS: BP 162/70
[2021-10-06 14:00] VITALS: BP 130/60
[2021-10-06 20:00] VITALS: BP 117/59
[2021-10-06] MEDS: SENNA 8.6 MG TAB (SENOKOT) PO SCH (21:00)
[2021-10-06] MEDS: TAMSULOSIN 0.4 MG CAP PO SCH (21:32)
[2021-10-06] MEDS: GABAPENTIN 300 MG CAP PO SCH (21:32)
[2021-10-06] MEDS: MAGNESIUM GLUCONATE 500 MG TAB PO SCH (21:32)
[2021-10-06] MEDS: traZODone 50 MG TAB PO SCH (21:33)
[2021-10-07 06:00] VITALS: BP 135/69
[2021-10-07] MEDS: SPIRONOLACTONE 25 MG TAB PO SCH (08:17)
[2021-10-07] MEDS: FERROUS SULFATE 325MG TAB PO SCH (08:17)
[2021-10-07] MEDS: ACETAMINOPHEN 500 MG TAB PO SCH ×3 (08:17→21:33)
[2021-10-07] MEDS: PANTOPRAZOLE 40MG TAB (PROTONIX) PO SCH (08:17)
[2021-10-07] MEDS: LOSARTAN 25 MG TAB PO SCH (08:17)
[2021-10-07] MEDS: ASCORBIC ACID 500 MG TAB PO SCH (08:17)
[2021-10-07] MEDS: ASPIRIN 81MG ENTERIC TABLET PO SCH ×2 (08:17→21:32)
[2021-10-07] MEDS: REMEDY PHYTOPLEX Z-GUARD PASTE 113GM TUBE (FROM STOREROOM PRODUCT) TOP SCH ×3 (08:18→21:00)
[2021-10-07] MEDS: DOCUSATE SODIUM 100MG CAPSULE PO SCH ×2 (08:18→21:00)
[2021-10-07] MEDS: COMBIVENT RESPIMAT 100-20MCG INHALER 4GM INH SCH ×3 (08:24→20:00)
[2021-10-07] MEDS: TIOTROPIUM INHALER/CAPSULE (SPIRIVA) INH SCH (08:24)
[2021-10-07] MEDS: ADVAIR HFA 230/21MCG INHALER INH SCH ×2 (08:24→20:00)
[2021-10-07 20:00] VITALS: BP 124/71
[2021-10-07] MEDS: SENNA 8.6 MG TAB (SENOKOT) PO SCH (21:00)
[2021-10-07] MEDS: MAGNESIUM GLUCONATE 500 MG TAB PO SCH (21:32)
[2021-10-07] MEDS: traZODone 50 MG TAB PO SCH (21:32)
[2021-10-07] MEDS: GABAPENTIN 300 MG CAP PO SCH (21:33)
[2021-10-07] MEDS: TAMSULOSIN 0.4 MG CAP PO SCH (21:33)
[2021-10-08 06:00] VITALS: BP 149/57
[2021-10-08] MEDS: TIOTROPIUM INHALER/CAPSULE (SPIRIVA) INH SCH (07:21)
[2021-10-08] MEDS: COMBIVENT RESPIMAT 100-20MCG INHALER 4GM INH SCH ×3 (07:21→22:02)
[2021-10-08] MEDS: ADVAIR HFA 230/21MCG INHALER INH SCH ×2 (07:21→22:02)
[2021-10-08] MEDS: REMEDY PHYTOPLEX Z-GUARD PASTE 113GM TUBE (FROM STOREROOM PRODUCT) TOP SCH ×3 (09:00→22:10)
[2021-10-08] MEDS: SPIRONOLACTONE 25 MG TAB PO SCH (09:30)
[2021-10-08] MEDS: ASCORBIC ACID 500 MG TAB PO SCH (09:30)
[2021-10-08] MEDS: PANTOPRAZOLE 40MG TAB (PROTONIX) PO SCH (09:30)
[2021-10-08] MEDS: ASPIRIN 81MG ENTERIC TABLET PO SCH ×2 (09:30→22:10)
[2021-10-08] MEDS: DOCUSATE SODIUM 100MG CAPSULE PO SCH ×2 (09:30→22:10)
[2021-10-08] MEDS: ACETAMINOPHEN 500 MG TAB PO SCH ×3 (09:30→22:15)
[2021-10-08] MEDS: FERROUS SULFATE 325MG TAB PO SCH (09:30)
[2021-10-08] MEDS: LOSARTAN 25 MG TAB PO SCH (09:31)
[2021-10-08 09:48] LABS: BASO % 0.5 % (0.0-1.0); EOS # 0.1 10^3/uL (0.0-0.5); EOS % 2.1 % (0.0-3.0); HEMATOCRIT 30.4 % (42.0-52.0); LYMPH # 1.8 10^3/uL (1.5-5.0); LYMPH % 26.9 % (24.0-44.0); MEAN CORPUSCULAR HEMOGLOBIN 32.9 pg (27.0-33.0); MEAN CORPUSCULAR HGB CONC 32.9 g/dl (32.0-36.5); MONO # 0.7 10^3/uL (0.0-0.8); MONO % 10.2 % (2.0-8.0); NEUTROPHILS # 3.9 10^3/uL (1.5-8.5); NEUTROPHILS % 58.6 % (36.0-66.0); PLATELET COUNT, AUTOMATED 258 10^3/uL (150-450); RED BLOOD COUNT 3.04 10^6/uL (4.30-6.10); WHITE BLOOD COUNT 6.6 10^3/uL (4.0-10.0)
[2021-10-08 10:35] LABS: BLOOD UREA NITROGEN 22 MG/DL (7-18); CALCIUM LEVEL 9.3 MG/DL (8.8-10.2); CARBON DIOXIDE LEVEL 27 MEQ/L (21-32); CHLORIDE LEVEL 103 MEQ/L (98-107); CREATININE FOR GFR 0.89 MG/DL (0.70-1.30); GLOMERULAR FILTRATION RATE > 60.0 (>42); GLUCOSE, FASTING 87 MG/DL (70-100); POTASSIUM SERUM 4.1 MEQ/L (3.5-5.1); SODIUM LEVEL 137 MEQ/L (136-145)
[2021-10-08 14:00] VITALS: BP 115/77
[2021-10-08 22:00] VITALS: BP 141/67
[2021-10-08] MEDS: TAMSULOSIN 0.4 MG CAP PO SCH (22:09)
[2021-10-08] MEDS: traZODone 50 MG TAB PO SCH (22:10)
[2021-10-08] MEDS: MAGNESIUM GLUCONATE 500 MG TAB PO SCH (22:10)
[2021-10-08] MEDS: GABAPENTIN 300 MG CAP PO SCH (22:10)
[2021-10-08] MEDS: SENNA 8.6 MG TAB (SENOKOT) PO SCH (22:10)
[2021-10-09 06:00] VITALS: BP 161/71
[2021-10-09] MEDS: COMBIVENT RESPIMAT 100-20MCG INHALER 4GM INH SCH ×3 (06:35→20:00)
[2021-10-09] MEDS: ADVAIR HFA 230/21MCG INHALER INH SCH ×2 (06:35→20:30)
[2021-10-09] MEDS: TIOTROPIUM INHALER/CAPSULE (SPIRIVA) INH SCH (06:36)
[2021-10-09] MEDS: ACETAMINOPHEN 500 MG TAB PO SCH ×3 (08:49→22:25)
[2021-10-09] MEDS: ASPIRIN 81MG ENTERIC TABLET PO SCH ×2 (08:49→22:26)
[2021-10-09] MEDS: ASCORBIC ACID 500 MG TAB PO SCH (08:49)
[2021-10-09] MEDS: PANTOPRAZOLE 40MG TAB (PROTONIX) PO SCH (08:49)
[2021-10-09] MEDS: LOSARTAN 25 MG TAB PO SCH (08:49)
[2021-10-09] MEDS: FERROUS SULFATE 325MG TAB PO SCH (08:49)
[2021-10-09] MEDS: REMEDY PHYTOPLEX Z-GUARD PASTE 113GM TUBE (FROM STOREROOM PRODUCT) TOP SCH ×3 (08:50→22:27)
[2021-10-09] MEDS: DOCUSATE SODIUM 100MG CAPSULE PO SCH ×2 (08:50→22:26)
[2021-10-09] MEDS: SPIRONOLACTONE 50 MG TAB PO SCH (12:16)
[2021-10-09 13:37] VITALS: BP 115/59
[2021-10-09 20:00] VITALS: BP 137/60
[2021-10-09] MEDS: GABAPENTIN 300 MG CAP PO SCH (22:24)
[2021-10-09] MEDS: MAGNESIUM GLUCONATE 500 MG TAB PO SCH (22:25)
[2021-10-09] MEDS: traZODone 50 MG TAB PO SCH (22:26)
[2021-10-09] MEDS: TAMSULOSIN 0.4 MG CAP PO SCH (22:26)
[2021-10-09] MEDS: SENNA 8.6 MG TAB (SENOKOT) PO SCH (22:26)
[2021-10-10 06:00] VITALS: BP 145/78
[2021-10-10] MEDS: ADVAIR HFA 230/21MCG INHALER INH SCH ×2 (07:26→20:00)
[2021-10-10] MEDS: TIOTROPIUM INHALER/CAPSULE (SPIRIVA) INH SCH (07:26)
[2021-10-10] MEDS: COMBIVENT RESPIMAT 100-20MCG INHALER 4GM INH SCH ×3 (07:26→20:00)
[2021-10-10] MEDS: ASCORBIC ACID 500 MG TAB PO SCH (07:37)
[2021-10-10] MEDS: ACETAMINOPHEN 500 MG TAB PO SCH ×3 (07:37→22:03)
[2021-10-10] MEDS: FERROUS SULFATE 325MG TAB PO SCH (07:37)
[2021-10-10] MEDS: ASPIRIN 81MG ENTERIC TABLET PO SCH ×2 (07:37→22:02)
[2021-10-10] MEDS: PANTOPRAZOLE 40MG TAB (PROTONIX) PO SCH (07:37)
[2021-10-10] MEDS: DOCUSATE SODIUM 100MG CAPSULE PO SCH ×2 (07:37→22:02)
[2021-10-10] MEDS: LOSARTAN 25 MG TAB PO SCH (07:38)
[2021-10-10] MEDS: REMEDY PHYTOPLEX Z-GUARD PASTE 113GM TUBE (FROM STOREROOM PRODUCT) TOP SCH ×3 (07:38→19:29)
[2021-10-10] MEDS: SPIRONOLACTONE 50 MG TAB PO SCH (13:05)
[2021-10-10 14:00] VITALS: BP 128/62
[2021-10-10 20:00] VITALS: BP 129/63
[2021-10-10] MEDS: TAMSULOSIN 0.4 MG CAP PO SCH (22:02)
[2021-10-10] MEDS: MAGNESIUM GLUCONATE 500 MG TAB PO SCH (22:02)
[2021-10-10] MEDS: SENNA 8.6 MG TAB (SENOKOT) PO SCH (22:02)
[2021-10-10] MEDS: GABAPENTIN 300 MG CAP PO SCH (22:02)
[2021-10-10] MEDS: traZODone 50 MG TAB PO SCH (22:02)
[2021-10-11 06:00] VITALS: BP 158/75
[2021-10-11 06:56] LABS: BASO % 0.5 % (0.0-1.0); EOS # 0.1 10^3/uL (0.0-0.5); EOS % 2.1 % (0.0-3.0); HEMATOCRIT 33.9 % (42.0-52.0); HEMOGLOBIN 10.8 g/dl (13.5-17.5); LYMPH # 1.6 10^3/uL (1.5-5.0); LYMPH % 28.1 % (24.0-44.0); MEAN CORPUSCULAR HEMOGLOBIN 32.7 pg (27.0-33.0); MEAN CORPUSCULAR HGB CONC 31.9 g/dl (32.0-36.5); MEAN CORPUSCULAR VOLUME 102.7 fl (80.0-96.0); MONO # 0.6 10^3/uL (0.0-0.8); MONO % 10.3 % (2.0-8.0); NEUTROPHILS # 3.3 10^3/uL (1.5-8.5); NEUTROPHILS % 57.8 % (36.0-66.0); PLATELET COUNT, AUTOMATED 259 10^3/uL (150-450); WHITE BLOOD COUNT 5.7 10^3/uL (4.0-10.0)
[2021-10-11 07:19] LABS: BLOOD UREA NITROGEN 23 MG/DL (7-18); CALCIUM LEVEL 9.3 MG/DL (8.8-10.2); CARBON DIOXIDE LEVEL 25 MEQ/L (21-32); CHLORIDE LEVEL 104 MEQ/L (98-107); GLOMERULAR FILTRATION RATE > 60.0 (>42); GLUCOSE, FASTING 128 MG/DL (70-100); POTASSIUM SERUM 4.1 MEQ/L (3.5-5.1); SODIUM LEVEL 135 MEQ/L (136-145)
[2021-10-11] MEDS: COMBIVENT RESPIMAT 100-20MCG INHALER 4GM INH SCH (08:00)
[2021-10-11] MEDS: TIOTROPIUM INHALER/CAPSULE (SPIRIVA) INH SCH (08:24)
[2021-10-11] MEDS: ADVAIR HFA 230/21MCG INHALER INH SCH (08:25)
[2021-10-11] MEDS: REMEDY PHYTOPLEX Z-GUARD PASTE 113GM TUBE (FROM STOREROOM PRODUCT) TOP SCH (09:00)
[2021-10-11] MEDS ORDERED: AMLO1TAB25 PO (09:24)
[2021-10-11] MEDS: ASPIRIN 81MG ENTERIC TABLET PO SCH (09:27)
[2021-10-11] MEDS: DOCUSATE SODIUM 100MG CAPSULE PO SCH (09:27)
[2021-10-11] MEDS: PANTOPRAZOLE 40MG TAB (PROTONIX) PO SCH (09:27)
[2021-10-11] MEDS: FERROUS SULFATE 325MG TAB PO SCH (09:27)
[2021-10-11] MEDS: ASCORBIC ACID 500 MG TAB PO SCH (09:28)
[2021-10-11] MEDS: ACETAMINOPHEN 500 MG TAB PO SCH (09:28)
[2021-10-11 09:29] VITALS: BP 158/75
[2021-10-11] MEDS: LOSARTAN 25 MG TAB PO SCH (09:29)
[2021-10-11] MEDS ORDERED: HYDR-3490 PO (09:47)
[2021-10-11] MEDS ORDERED: ASPI81TA33 PO (09:47)
[2021-10-11] MEDS ORDERED: PANT40TA29 PO (09:47)
[2021-10-11] MEDS ORDERED: GABA-282 PO (09:47)
[2021-10-11] MEDS ORDERED: ALDA50TA2 PO (09:47)
[2021-10-11] MEDS ORDERED: RAPA8CAP4 PO (09:47)
[2021-10-11] MEDS ORDERED: COZA1TAB PO (09:47)
[2021-10-11] MEDS ORDERED: INCR1INH INH (09:47)
[2021-10-11] MEDS ORDERED: TRAZ-252 PO (09:47)
[2021-10-11] MEDS: SPIRONOLACTONE 50 MG TAB PO SCH (12:23)
== END 2021-10-11 14:15 | disposition home or self-care (01) | DRG 561 ==
LOC: M PM&R 10-01 13:05
PROVIDERS: ADMIT Physical Medicine & Rehabilitation; ATTEND Physical Medicine & Rehabilitation
DX: S72.142D Displaced intertrochanteric fracture of left femur, subsequent encounter for closed fracture with routine healing (principal); I10 Essential (primary) hypertension; J45.909 Unspecified asthma, uncomplicated; M19.90 Unspecified osteoarthritis, unspecified site; Z85.46 Personal history of malignant neoplasm of prostate; Z74.09 Other reduced mobility; Z74.1 Need for assistance with personal care; D64.9 Anemia, unspecified; Z79.82 Long term (current) use of aspirin; Z79.899 Other long term (current) drug therapy

== ENCOUNTER → 2021-10-19 | Outpatient (REF) | payer MEDICARE, OTHER ==
[~2021-10-19] MED LIST changes: +ALDA50TA2 PO; +COZA1TAB PO; +GABA-282 PO; +HYDR-3490 PO; +PANT40TA29 PO; +TRAZ-252 PO
[2021-10-19 12:35] LABS: HEMATOCRIT 32.7 % (42.0-52.0); HEMOGLOBIN 11.5 g/dl (13.5-17.5); MEAN CORPUSCULAR HEMOGLOBIN 36.5 pg (27.0-33.0); MEAN CORPUSCULAR HGB CONC 35.2 g/dl (32.0-36.5); MEAN CORPUSCULAR VOLUME 103.8 fl (80.0-96.0); PLATELET COUNT, AUTOMATED 298 10^3/uL (150-450); RED BLOOD COUNT 3.15 10^6/uL (4.30-6.10); WHITE BLOOD COUNT 6.6 10^3/uL (4.0-10.0)
[2021-10-19 14:09] LABS: ALBUMIN 3.5 GM/DL (3.2-5.2); ALT/SGPT 32 U/L (12-78); BILIRUBIN,TOTAL 0.5 MG/DL (0.2-1.0); BLOOD UREA NITROGEN 25 MG/DL (7-18); CALCIUM LEVEL 9.5 MG/DL (8.8-10.2); CARBON DIOXIDE LEVEL 27 MEQ/L (21-32); CHLORIDE LEVEL 105 MEQ/L (98-107); CREATININE FOR GFR 1.07 MG/DL (0.70-1.30); GLOMERULAR FILTRATION RATE > 60.0 (>42); GLUCOSE, FASTING 71 MG/DL (70-100); POTASSIUM SERUM 4.9 MEQ/L (3.5-5.1); SODIUM LEVEL 139 MEQ/L (136-145); TOTAL PROTEIN 6.4 GM/DL (6.4-8.2)
== END ==
LOC: M SFHCADAM 09:57
PROVIDERS: ATTEND Family Medicine
DX: I11.9 Hypertensive heart disease without heart failure (principal); S72.002D Fracture of unspecified part of neck of left femur, subsequent encounter for closed fracture with routine healing

== ENCOUNTER → 2021-10-27 | Outpatient (REF) | payer MEDICARE, OTHER ==
[2021-10-27 13:48] LABS: BLOOD UREA NITROGEN 21 MG/DL (7-18); CALCIUM LEVEL 9.6 MG/DL (8.8-10.2); CARBON DIOXIDE LEVEL 30 MEQ/L (21-32); CHLORIDE LEVEL 103 MEQ/L (98-107); CREATININE FOR GFR 0.96 MG/DL (0.70-1.30); GLOMERULAR FILTRATION RATE > 60.0 (>42); GLUCOSE, FASTING 83 MG/DL (70-100); POTASSIUM SERUM 4.5 MEQ/L (3.5-5.1); SODIUM LEVEL 138 MEQ/L (136-145)
== END ==
LOC: M SFHCADAM 10:12
PROVIDERS: ATTEND Family Medicine
DX: I11.9 Hypertensive heart disease without heart failure (principal)

== ENCOUNTER → 2021-11-22 | Outpatient (CLI) | payer MEDICARE, OTHER | LOC: M PLAIMG 07:09 | PROVIDERS: ATTEND Orthopaedic Surgery Adult Reconstructive Orthopaedic Surgery | DX: S83.242A Other tear of medial meniscus, current injury, left knee, initial encounter (principal); S83.282A Other tear of lateral meniscus, current injury, left knee, initial encounter; X58.XXXA Exposure to other specified factors, initial encounter; Y92.89 Other specified places as the place of occurrence of the external cause ==

== ENCOUNTER → 2021-11-25 | Outpatient (CLI) | payer MEDICARE, OTHER | LOC: M LABSMTC 09:17 | PROVIDERS: ATTEND Anesthesiology | DX: Z01.812 Encounter for preprocedural laboratory examination (principal); Z20.822 Contact with and (suspected) exposure to COVID-19 ==

== ENCOUNTER → 2021-11-25 | Outpatient (CLI) | payer MEDICARE, OTHER ==
[2021-11-25 10:11] LABS: BASO # 0.1 10^3/uL (0.0-0.2); BASO % 1.1 % (0.0-1.0); EOS # 0.1 10^3/uL (0.0-0.5); EOS % 1.6 % (0.0-3.0); HEMATOCRIT 41.2 % (42.0-52.0); HEMOGLOBIN 13.9 g/dl (13.5-17.5); LYMPH # 2.2 10^3/uL (1.5-5.0); LYMPH % 39.6 % (24.0-44.0); MEAN CORPUSCULAR HEMOGLOBIN 31.7 pg (27.0-33.0); MEAN CORPUSCULAR HGB CONC 33.7 g/dl (32.0-36.5); MEAN CORPUSCULAR VOLUME 94.1 fl (80.0-96.0); MONO # 0.7 10^3/uL (0.0-0.8); MONO % 12.4 % (2.0-8.0); NEUTROPHILS # 2.5 10^3/uL (1.5-8.5); NEUTROPHILS % 44.6 % (36.0-66.0); PLATELET COUNT, AUTOMATED 210 10^3/uL (150-450); RED BLOOD COUNT 4.38 10^6/uL (4.30-6.10); WHITE BLOOD COUNT 5.7 10^3/uL (4.0-10.0)
[2021-11-25 10:41] LABS: ALBUMIN 3.9 GM/DL (3.2-5.2); ALT/SGPT 26 U/L (12-78); BILIRUBIN,TOTAL 0.4 MG/DL (0.2-1.0); BLOOD UREA NITROGEN 19 MG/DL (7-18); CALCIUM LEVEL 9.6 MG/DL (8.8-10.2); CARBON DIOXIDE LEVEL 27 MEQ/L (21-32); CHLORIDE LEVEL 105 MEQ/L (98-107); CREATININE FOR GFR 0.79 MG/DL (0.70-1.30); GLOMERULAR FILTRATION RATE > 60.0 (>42); GLUCOSE, FASTING 77 MG/DL (70-100); POTASSIUM SERUM 4.2 MEQ/L (3.5-5.1); SODIUM LEVEL 139 MEQ/L (136-145)
== END ==
LOC: M EKG 08:32
PROVIDERS: ATTEND Orthopaedic Surgery Adult Reconstructive Orthopaedic Surgery
DX: M66.852 Spontaneous rupture of other tendons, left thigh (principal); Z79.899 Other long term (current) drug therapy

== ENCOUNTER 2021-11-30 07:33 | Inpatient (IN) | payer MEDICARE, OTHER ==
[2021-11-30] VITALS (7 sets, daily range): BP systolic 118–161; BP diastolic 68–86
[~2021-11-30] VITALS: Ht 177.8 cm; Wt 90.3 kg
[~2021-11-30 07:33] MED LIST changes: +ACETAMINOPHEN 500 MG TAB PO ONE; +LIDOCAINE 1% MDV 20ML VIAL SQ PRN; +LR 1,000 ML IV ONE; +NAPROXEN 250 MG TAB PO ONE; +NS 1,000 ML IV ONE; +PREGABALIN 25 MG CAP (LYRICA) PO ONE; +ROPIVA 125MG/EPINEPH 0.25MG/CLONID 40MCG/KETOR 15MG IN NS 50ML SYRINGE PA ONE; +dexameTHASONE 4 MG/ML 1ML VIAL (J1100 PER 1MG) IV ONE
[2021-11-30] MEDS ORDERED: fentaNYL 100 MCG/2 ML INJECTION As Ordered ONE (08:01)
[2021-11-30] MEDS ORDERED: LIDOCAINE 2% 100MG/5ML SDV (FOR ANES.) As Ordered ONE (08:02)
[2021-11-30] MEDS ORDERED: ONDANSETRON 4MG/2ML VIAL As Ordered ONE (08:02)
[2021-11-30] MEDS ORDERED: dexameTHASONE 4 MG/ML 1ML VIAL (J1100 PER 1MG) As Ordered ONE (08:02)
[2021-11-30] MEDS ORDERED: ROCURONIUM BROMIDE 50 MG/5 ML VIAL As Ordered ONE (08:02)
[2021-11-30] MEDS ORDERED: propofoL 200 MG/20 ML VIAL As Ordered ONE ×2 (08:02→11:00)
[2021-11-30] MEDS ORDERED: ROPIvacaine 0.5% 30ML INJECTION (J2795 PER 1MG) As Ordered ONE (09:03)
[2021-11-30] MEDS ORDERED: ceFAZolin 1GM VIAL (J0690 PER 500MG) As Ordered ONE (09:03)
[2021-11-30] MEDS ORDERED: MIDAZOLAM INJ 2MG/2ML VIAL (J2250 PER 1MG) As Ordered ONE (09:12)
[2021-11-30] MEDS ORDERED: TRANEXAMIC ACID 100 MG/ML 10ML VIAL As Ordered ONE (09:27)
[2021-11-30] MEDS ORDERED: ceFAZolin 2 GM/D5W 50 ML IV BAG (J0690 PER 500MG) As Ordered ONE (09:34)
[2021-11-30] MEDS ORDERED: ONDANSETRON 4MG/2ML VIAL IV PRN ×2 (11:50→12:00)
[2021-11-30] MEDS ORDERED: LR 1,000 ML IV SCH (11:50)
[2021-11-30] MEDS ORDERED: oxyCODONE 5MG TAB PO PRN ×3 (11:50→12:00)
[2021-11-30] MEDS ORDERED: HYDROMORPHONE HCL 0.5 MG/ 0.5 ML SYRINGE (J1170 PER 1) IV PRN (11:50)
[2021-11-30] MEDS ORDERED: fentaNYL 100 MCG/2 ML INJECTION IV PRN (11:50)
[2021-11-30] MEDS ORDERED: traMADol 50 MG TAB PO PRN (12:00)
[2021-11-30] MEDS ORDERED: SENNA 8.6 MG TAB (SENOKOT) PO PRN (12:00)
[2021-11-30] MEDS: LR 1,000 ML IV SCH ×3 (12:05→22:39)
[2021-11-30] MEDS ORDERED: ALBUTEROL 90 MCG/ACT 8GM HFA INHALER INH PRN (14:20)
[2021-11-30] MEDS: ACETAMINOPHEN TAB 650MG DOSE (2X325MG) PO SCH ×2 (15:08→21:15)
[2021-11-30] MEDS ORDERED: ASPI-551 PO (15:36)
[2021-11-30] MEDS ORDERED: OXYC-517 PO (15:39)
[2021-11-30 16:31] LABS: BASO % 0.2 % (0.0-1.0); HEMATOCRIT 40.2 % (42.0-52.0); HEMOGLOBIN 13.5 g/dl (13.5-17.5); LYMPH # 0.6 10^3/uL (1.5-5.0); LYMPH % 9.8 % (24.0-44.0); MEAN CORPUSCULAR HEMOGLOBIN 31.7 pg (27.0-33.0); MEAN CORPUSCULAR HGB CONC 33.6 g/dl (32.0-36.5); MEAN CORPUSCULAR VOLUME 94.4 fl (80.0-96.0); MONO % 0.5 % (2.0-8.0); NEUTROPHILS # 5.6 10^3/uL (1.5-8.5); NEUTROPHILS % 88.9 % (36.0-66.0); PLATELET COUNT, AUTOMATED 174 10^3/uL (150-450); RED BLOOD COUNT 4.26 10^6/uL (4.30-6.10); WHITE BLOOD COUNT 6.3 10^3/uL (4.0-10.0)
[2021-11-30 16:51] LABS: BLOOD UREA NITROGEN 19 MG/DL (7-18); CALCIUM LEVEL 8.9 MG/DL (8.8-10.2); CARBON DIOXIDE LEVEL 28 MEQ/L (21-32); CHLORIDE LEVEL 102 MEQ/L (98-107); CREATININE FOR GFR 1.04 MG/DL (0.70-1.30); GLOMERULAR FILTRATION RATE > 60.0 (>42); GLUCOSE, FASTING 283 MG/DL (70-100); POTASSIUM SERUM 3.7 MEQ/L (3.5-5.1); SODIUM LEVEL 137 MEQ/L (136-145)
[2021-11-30] MEDS: ceFAZolin SOD 2 GM in IV 1 EA IV SCH (18:24)
[2021-11-30] MEDS: ASPIRIN 81MG ENTERIC TABLET PO SCH (21:15)
[2021-11-30] MEDS: DOCUSATE SODIUM 100MG CAPSULE PO SCH (21:15)
[2021-11-30] MEDS: NAPROXEN 250 MG TAB PO SCH (21:15)
[2021-12-01] MEDS ORDERED: MOM 30ML SUSPENSION UDC PO PRN (00:30)
[2021-12-01] MEDS ORDERED: MIRALAX *UNIT DOSE* 17GM PACKET PO PRN (00:30)
[2021-12-01] MEDS: ceFAZolin SOD 2 GM in IV 1 EA IV SCH (01:27)
[2021-12-01 02:00] VITALS: BP 186/94
[2021-12-01] MEDS: ACETAMINOPHEN TAB 650MG DOSE (2X325MG) PO SCH ×3 (03:26→15:40)
[2021-12-01 06:00] VITALS: BP 171/95
[2021-12-01] MEDS ORDERED: LOSARTAN 25 MG TAB PO ONE (06:25)
[2021-12-01 06:56] VITALS: BP 171/95
[2021-12-01] MEDS ORDERED: MAGNESIUM CITRATE 300 ML BTL PO ONE (07:30)
[2021-12-01] MEDS ORDERED: INCRUSE ELLIPTA (PATIENT'S OWN MED) INH SCH (08:00)
[2021-12-01 08:20] VITALS: BP 119/83
[2021-12-01] MEDS: DOCUSATE SODIUM 100MG CAPSULE PO SCH (08:27)
[2021-12-01] MEDS: NAPROXEN 250 MG TAB PO SCH (08:27)
[2021-12-01] MEDS: ASPIRIN 81MG ENTERIC TABLET PO SCH (08:27)
[2021-12-01] MEDS ORDERED: RAPAFLO 8 MG PO SCH (09:00)
[2021-12-01] MEDS ORDERED: EPLERENONE 25 MG PO SCH (09:00)
[2021-12-01] MEDS ORDERED: LOSARTAN 25 MG TAB PO SCH (09:00)
[2021-12-01 14:00] VITALS: BP 129/78
== END 2021-12-01 17:35 | disposition home health service (06) | DRG 489 ==
LOC: M SDC 07:33 → M MS5PR 11:49
PROVIDERS: ADMIT General Practice; ATTEND General Practice
PROC: 0QQD0ZZ Repair Right Patella, Open Approach (ICD-10-PCS; principal; 2021-11-30 09:00)
DX: S76.112A Strain of left quadriceps muscle, fascia and tendon, initial encounter (principal); I10 Essential (primary) hypertension; J45.909 Unspecified asthma, uncomplicated; Z85.46 Personal history of malignant neoplasm of prostate; Z79.82 Long term (current) use of aspirin; Z79.899 Other long term (current) drug therapy; K59.03 Drug induced constipation; R33.9 Retention of urine, unspecified; W19.XXXA Unspecified fall, initial encounter; Y92.9 Unspecified place or not applicable; Y93.9 Activity, unspecified; Y99.8 Other external cause status; T40.2X5A Adverse effect of other opioids, initial encounter

== ENCOUNTER → 2021-12-13 | Outpatient (CLI) | payer MEDICARE, OTHER ==
[~2021-12-13] MED LIST changes: -ACETAMINOPHEN 500 MG TAB PO ONE; +ASPI-551 PO; -LIDOCAINE 1% MDV 20ML VIAL SQ PRN; -LR 1,000 ML IV ONE; -NAPROXEN 250 MG TAB PO ONE; -NS 1,000 ML IV ONE; +OXYC-517 PO; -PREGABALIN 25 MG CAP (LYRICA) PO ONE; -ROPIVA 125MG/EPINEPH 0.25MG/CLONID 40MCG/KETOR 15MG IN NS 50ML SYRINGE PA ONE; -dexameTHASONE 4 MG/ML 1ML VIAL (J1100 PER 1MG) IV ONE
== END ==
LOC: M RAD 10:08
PROVIDERS: ATTEND Family Medicine
DX: K08.109 Complete loss of teeth, unspecified cause, unspecified class (principal); T18.9XXA Foreign body of alimentary tract, part unspecified, initial encounter

== ENCOUNTER → 2021-12-14 | Outpatient (CLI) | payer MEDICARE, OTHER ==
[~2021-12-14] MED LIST changes: +ACET25TA12 PO; +ALBU8.5H INH; +ASPI-161 PO; +LOSA25TA13 PO; +VITA500T41 PO
== END ==
LOC: M SOG 10:47
PROVIDERS: ATTEND Orthopaedic Surgery Adult Reconstructive Orthopaedic Surgery
DX: S76.112A Strain of left quadriceps muscle, fascia and tendon, initial encounter (principal); X58.XXXA Exposure to other specified factors, initial encounter; Y92.9 Unspecified place or not applicable; Y99.9 Unspecified external cause status

== ENCOUNTER 2021-12-15 20:45 | Inpatient (IN) | payer MEDICARE, OTHER ==
[~2021-12-15] VITALS: Ht 177.8 cm; Wt 94.8 kg
[~2021-12-15 20:45] MED LIST changes: -ACET25TA12 PO; -ALBU8.5H INH; -ASPI-161 PO; -LOSA25TA13 PO; -VITA500T41 PO
[2021-12-15] MEDS ORDERED: NS 1,000 ML IV ONE (21:10)
[2021-12-15 21:40] LABS: BASO % 0.6 % (0.0-1.0); EOS # 0.2 10^3/uL (0.0-0.5); EOS % 2.8 % (0.0-3.0); HEMATOCRIT 32.7 % (42.0-52.0); LYMPH # 1.7 10^3/uL (1.5-5.0); LYMPH % 23.3 % (24.0-44.0); MEAN CORPUSCULAR HEMOGLOBIN 31.7 pg (27.0-33.0); MEAN CORPUSCULAR HGB CONC 33.6 g/dl (32.0-36.5); MEAN CORPUSCULAR VOLUME 94.2 fl (80.0-96.0); MONO # 0.8 10^3/uL (0.0-0.8); MONO % 10.9 % (2.0-8.0); NEUTROPHILS # 4.5 10^3/uL (1.5-8.5); NEUTROPHILS % 61.4 % (36.0-66.0); PLATELET COUNT, AUTOMATED 209 10^3/uL (150-450); RED BLOOD COUNT 3.47 10^6/uL (4.30-6.10); WHITE BLOOD COUNT 7.3 10^3/uL (4.0-10.0)
[2021-12-15 23:22] LABS: ALBUMIN 3.1 GM/DL (3.2-5.2); ALT/SGPT 69 U/L (12-78); BILIRUBIN,DIRECT < 0.1 MG/DL (0.0-0.2); BILIRUBIN,TOTAL 0.3 MG/DL (0.2-1.0); BLOOD UREA NITROGEN 87 MG/DL (7-18); CALCIUM LEVEL 7.9 MG/DL (8.8-10.2); CARBON DIOXIDE LEVEL 23 MEQ/L (21-32); CHLORIDE LEVEL 99 MEQ/L (98-107); GLOMERULAR FILTRATION RATE 3.8 (>42); GLUCOSE, FASTING 88 MG/DL (70-100); LIPASE 129 U/L (73-393); POTASSIUM SERUM 6.2 MEQ/L (3.5-5.1); SODIUM LEVEL 134 MEQ/L (136-145); TOTAL PROTEIN 6.1 GM/DL (6.4-8.2)
[2021-12-16 00:08] LABS: RSV AMPLIFICATION NEGATIVE (NEGATIVE)
[2021-12-16] MEDS ORDERED: PATIROMER SORBITEX CALCIUM 8.4 GM POWDER PACKET (VELTASSA) PO ONE (00:15)
[2021-12-16] MEDS ORDERED: DEXTROSE 50% 50 ML SYRINGE IV ONE (00:15)
[2021-12-16] MEDS ORDERED: HumuLIN R (REGULAR) INSULIN (NovoLIN R) **100U/ML** PER UNIT IV ONE (00:15)
[2021-12-16] MEDS ORDERED: ALBU8.5H INH (01:50)
[2021-12-16] MEDS ORDERED: ACET25TA12 PO (01:50)
[2021-12-16] MEDS ORDERED: RAPA8CAP4 PO (01:50)
[2021-12-16] MEDS ORDERED: VITA500T41 PO (01:50)
[2021-12-16] MEDS ORDERED: AMLO1TAB25 PO (01:50)
[2021-12-16] MEDS ORDERED: HYDR12.55 PO (01:50)
[2021-12-16] MEDS ORDERED: LOSA25TA13 PO (01:50)
[2021-12-16] MEDS ORDERED: ASPI-161 PO (01:50)
[2021-12-16] MEDS ORDERED: INCR1INH INH (01:50)
[2021-12-16] MEDS ORDERED: HOME MED LIST COMPLETE! XX SCH (01:55)
[2021-12-16] MEDS ORDERED: ALBUTEROL 90 MCG/ACT 8GM HFA INHALER INH PRN (03:00)
[2021-12-16] MEDS ORDERED: DEXTROSE 50% 50 ML SYRINGE IV STA (03:29)
[2021-12-16 04:17] LABS: CREATININE,RANDOM URINE 97.3 MG/DL
[2021-12-16] MEDS: HEPARIN SOD (PORCINE) 5000UNITS/ML 1ML VIAL/SYRINGE SC SCH ×3 (07:00→21:33)
[2021-12-16 07:22] LABS: BASO # 0.1 10^3/uL (0.0-0.2); BASO % 0.9 % (0.0-1.0); EOS # 0.1 10^3/uL (0.0-0.5); EOS % 1.8 % (0.0-3.0); HEMATOCRIT 35.1 % (42.0-52.0); HEMOGLOBIN 11.8 g/dl (13.5-17.5); LYMPH # 1.3 10^3/uL (1.5-5.0); LYMPH % 23.7 % (24.0-44.0); MEAN CORPUSCULAR HEMOGLOBIN 31.9 pg (27.0-33.0); MEAN CORPUSCULAR HGB CONC 33.6 g/dl (32.0-36.5); MEAN CORPUSCULAR VOLUME 94.9 fl (80.0-96.0); MONO # 0.9 10^3/uL (0.0-0.8); MONO % 15.8 % (2.0-8.0); NEUTROPHILS # 3.2 10^3/uL (1.5-8.5); NEUTROPHILS % 57.1 % (36.0-66.0); PLATELET COUNT, AUTOMATED 217 10^3/uL (150-450); WHITE BLOOD COUNT 5.6 10^3/uL (4.0-10.0)
[2021-12-16 07:59] LABS: ALBUMIN 3.1 GM/DL (3.2-5.2); BILIRUBIN,TOTAL 0.2 MG/DL (0.2-1.0); CALCIUM LEVEL 9.7 MG/DL (8.8-10.2); CREATININE FOR GFR 9.4 MG/DL (0.70-1.30); GLOMERULAR FILTRATION RATE 5.8 (>42); POTASSIUM SERUM 5.2 MEQ/L (3.5-5.1); TOTAL PROTEIN 6.9 GM/DL (6.4-8.2)
[2021-12-16] MEDS: ASPIRIN 81MG ENTERIC TABLET PO SCH ×2 (10:05→20:40)
[2021-12-16] MEDS: CYANOCOBALAMIN 500 MCG TAB PO SCH (10:05)
[2021-12-16] MEDS ORDERED: SENOKOT S TAB PO SCH (11:05)
[2021-12-16 11:40] VITALS: BP 159/75
[2021-12-16] MEDS ORDERED: PATIROMER SORBITEX CALCIUM 8.4 GM POWDER PACKET (VELTASSA) PO SCH (12:00)
[2021-12-16] MEDS: TAMSULOSIN 0.4 MG CAP PO SCH (13:41)
[2021-12-16 16:00] VITALS: BP 158/64
[2021-12-16 17:11] LABS: CALCIUM LEVEL 9.8 MG/DL (8.8-10.2); CREATININE FOR GFR 5.27 MG/DL (0.70-1.30); GLOMERULAR FILTRATION RATE 11.3 (>42); POTASSIUM SERUM 5.4 MEQ/L (3.5-5.1)
[2021-12-16 20:00] VITALS: BP 141/71
[2021-12-16] MEDS: FINASTERIDE 5MG TAB PO SCH (20:40)
[2021-12-16] MEDS ORDERED: NS 0.45% 1,000 ML IV SCH (21:00)
[2021-12-17] VITALS: BP 152/74
[2021-12-17] MEDS ORDERED: RAMELTEON 8 MG TAB (ROZEREM) PO ONE (00:20)
[2021-12-17 04:00] VITALS: BP 141/65
[2021-12-17 04:45] LABS: BASO # 0.1 10^3/uL (0.0-0.2); BASO % 0.8 % (0.0-1.0); EOS # 0.1 10^3/uL (0.0-0.5); HEMATOCRIT 38.3 % (42.0-52.0); HEMOGLOBIN 12.4 g/dl (13.5-17.5); LYMPH # 2.5 10^3/uL (1.5-5.0); LYMPH % 38.6 % (24.0-44.0); MEAN CORPUSCULAR HEMOGLOBIN 31.2 pg (27.0-33.0); MEAN CORPUSCULAR HGB CONC 32.4 g/dl (32.0-36.5); MEAN CORPUSCULAR VOLUME 96.2 fl (80.0-96.0); MONO # 0.8 10^3/uL (0.0-0.8); MONO % 11.8 % (2.0-8.0); NEUTROPHILS % 45.9 % (36.0-66.0); PLATELET COUNT, AUTOMATED 267 10^3/uL (150-450); RED BLOOD COUNT 3.98 10^6/uL (4.30-6.10); WHITE BLOOD COUNT 6.5 10^3/uL (4.0-10.0)
[2021-12-17 05:10] LABS: BILIRUBIN,TOTAL 0.2 MG/DL (0.2-1.0); CALCIUM LEVEL 9.7 MG/DL (8.8-10.2); CREATININE FOR GFR 2.78 MG/DL (0.70-1.30); GLOMERULAR FILTRATION RATE 23.6 (>42); POTASSIUM SERUM 4.7 MEQ/L (3.5-5.1); TOTAL PROTEIN 7.1 GM/DL (6.4-8.2)
[2021-12-17 05:11] LABS: ALBUMIN 3.2 GM/DL (3.2-5.2)
[2021-12-17] MEDS: HEPARIN SOD (PORCINE) 5000UNITS/ML 1ML VIAL/SYRINGE SC SCH ×3 (06:01→21:24)
[2021-12-17] MEDS: ADVAIR HFA 115/21MCG INHALER INH SCH ×2 (07:26→19:22)
[2021-12-17] MEDS: TIOTROPIUM INHALER/CAPSULE (SPIRIVA) INH SCH (07:26)
[2021-12-17 08:00] VITALS: BP 119/71
[2021-12-17] MEDS: ASPIRIN 81MG ENTERIC TABLET PO SCH ×2 (09:16→21:23)
[2021-12-17] MEDS: CYANOCOBALAMIN 500 MCG TAB PO SCH (09:17)
[2021-12-17] MEDS: TAMSULOSIN 0.4 MG CAP PO SCH (09:17)
[2021-12-17] MEDS: ACETAMINOPHEN TAB 650MG DOSE (2X325MG) PO PRN (11:37)
[2021-12-17 16:00] VITALS: BP 140/69
[2021-12-17 17:18] LABS: CALCIUM LEVEL 9.8 MG/DL (8.8-10.2); CREATININE FOR GFR 1.83 MG/DL (0.70-1.30); GLOMERULAR FILTRATION RATE 38.3 (>42); POTASSIUM SERUM 4.1 MEQ/L (3.5-5.1)
[2021-12-17] MEDS: DOCUSATE SODIUM 100MG CAPSULE PO PRN (18:26)
[2021-12-17 20:00] VITALS: BP 134/78
[2021-12-17] MEDS: FINASTERIDE 5MG TAB PO SCH (21:23)
[2021-12-17] MEDS: PERCOCET 5MG/325MG TAB PO PRN (21:43)
[2021-12-18] MEDS: RAMELTEON 8 MG TAB (ROZEREM) PO PRN
[2021-12-18 02:00] VITALS: BP 130/76
[2021-12-18] MEDS: PERCOCET 5MG/325MG TAB PO PRN ×2 (02:28→06:39)
[2021-12-18] MEDS: HEPARIN SOD (PORCINE) 5000UNITS/ML 1ML VIAL/SYRINGE SC SCH ×3 (05:35→21:08)
[2021-12-18 05:38] VITALS: BP 135/69
[2021-12-18 06:20] LABS: BASO # 0.1 10^3/uL (0.0-0.2); BASO % 0.8 % (0.0-1.0); EOS # 0.1 10^3/uL (0.0-0.5); EOS % 1.4 % (0.0-3.0); HEMATOCRIT 33.1 % (42.0-52.0); HEMOGLOBIN 10.9 g/dl (13.5-17.5); LYMPH # 1.9 10^3/uL (1.5-5.0); LYMPH % 23.5 % (24.0-44.0); MEAN CORPUSCULAR HEMOGLOBIN 31.2 pg (27.0-33.0); MEAN CORPUSCULAR HGB CONC 32.9 g/dl (32.0-36.5); MEAN CORPUSCULAR VOLUME 94.8 fl (80.0-96.0); MONO % 12.7 % (2.0-8.0); NEUTROPHILS # 4.8 10^3/uL (1.5-8.5); NEUTROPHILS % 61.1 % (36.0-66.0); PLATELET COUNT, AUTOMATED 252 10^3/uL (150-450); RED BLOOD COUNT 3.49 10^6/uL (4.30-6.10); WHITE BLOOD COUNT 7.9 10^3/uL (4.0-10.0)
[2021-12-18 07:04] LABS: BILIRUBIN,TOTAL 0.6 MG/DL (0.2-1.0); CALCIUM LEVEL 8.6 MG/DL (8.8-10.2); CREATININE FOR GFR 1.39 MG/DL (0.70-1.30); GLOMERULAR FILTRATION RATE 52.6 (>42); POTASSIUM SERUM 3.9 MEQ/L (3.5-5.1); TOTAL PROTEIN 6.1 GM/DL (6.4-8.2)
[2021-12-18] MEDS: ADVAIR HFA 115/21MCG INHALER INH SCH ×2 (07:33→19:10)
[2021-12-18] MEDS: TIOTROPIUM INHALER/CAPSULE (SPIRIVA) INH SCH (07:33)
[2021-12-18] MEDS: TAMSULOSIN 0.4 MG CAP PO SCH (08:56)
[2021-12-18] MEDS: ASPIRIN 81MG ENTERIC TABLET PO SCH ×2 (08:56→19:41)
[2021-12-18] MEDS: CYANOCOBALAMIN 500 MCG TAB PO SCH (08:56)
[2021-12-18] MEDS: DOCUSATE SODIUM 100MG CAPSULE PO PRN (09:07)
[2021-12-18] MEDS: SENOKOT S TAB PO SCH ×2 (09:40→19:41)
[2021-12-18 10:00] VITALS: BP 139/77
[2021-12-18 17:29] LABS: CALCIUM LEVEL 8.8 MG/DL (8.8-10.2); CREATININE FOR GFR 1.25 MG/DL (0.70-1.30); GLOMERULAR FILTRATION RATE 59.5 (>42); POTASSIUM SERUM 3.6 MEQ/L (3.5-5.1)
[2021-12-18] MEDS: ACETAMINOPHEN TAB 650MG DOSE (2X325MG) PO PRN (17:56)
[2021-12-18 18:00] VITALS: BP 141/76
[2021-12-18] MEDS: FINASTERIDE 5MG TAB PO SCH (19:41)
[2021-12-19] VITALS (8 sets, daily range): BP systolic 132–156; BP diastolic 61–84
[2021-12-19] MEDS: HEPARIN SOD (PORCINE) 5000UNITS/ML 1ML VIAL/SYRINGE SC SCH ×3 (05:27→20:44)
[2021-12-19] MEDS ORDERED: MOM 30ML SUSPENSION UDC PO PRN (05:35)
[2021-12-19] MEDS ORDERED: MIRALAX *UNIT DOSE* 17GM PACKET PO PRN (05:35)
[2021-12-19 05:42] LABS: BASO % 0.4 % (0.0-1.0); EOS # 0.1 10^3/uL (0.0-0.5); EOS % 0.9 % (0.0-3.0); HEMATOCRIT 34.1 % (42.0-52.0); HEMOGLOBIN 11.2 g/dl (13.5-17.5); LYMPH # 1.3 10^3/uL (1.5-5.0); LYMPH % 14.1 % (24.0-44.0); MEAN CORPUSCULAR HEMOGLOBIN 31.1 pg (27.0-33.0); MEAN CORPUSCULAR HGB CONC 32.8 g/dl (32.0-36.5); MEAN CORPUSCULAR VOLUME 94.7 fl (80.0-96.0); MONO # 1.1 10^3/uL (0.0-0.8); MONO % 11.7 % (2.0-8.0); NEUTROPHILS # 6.8 10^3/uL (1.5-8.5); NEUTROPHILS % 72.3 % (36.0-66.0); PLATELET COUNT, AUTOMATED 241 10^3/uL (150-450); WHITE BLOOD COUNT 9.4 10^3/uL (4.0-10.0)
[2021-12-19 05:53] LABS: ALBUMIN 2.8 GM/DL (3.2-5.2); ALT/SGPT 51 U/L (12-78); BILIRUBIN,TOTAL 0.6 MG/DL (0.2-1.0); BLOOD UREA NITROGEN 17 MG/DL (7-18); CALCIUM LEVEL 8.7 MG/DL (8.8-10.2); CARBON DIOXIDE LEVEL 27 MEQ/L (21-32); CHLORIDE LEVEL 103 MEQ/L (98-107); CREATININE FOR GFR 1.14 MG/DL (0.70-1.30); GLOMERULAR FILTRATION RATE > 60.0 (>42); GLUCOSE, FASTING 113 MG/DL (70-100); POTASSIUM SERUM 3.4 MEQ/L (3.5-5.1); SODIUM LEVEL 135 MEQ/L (136-145); TOTAL PROTEIN 6.9 GM/DL (6.4-8.2)
[2021-12-19] MEDS: ACETAMINOPHEN TAB 650MG DOSE (2X325MG) PO PRN ×3 (06:41→18:25)
[2021-12-19] MEDS: TIOTROPIUM INHALER/CAPSULE (SPIRIVA) INH SCH (08:23)
[2021-12-19] MEDS: ADVAIR HFA 115/21MCG INHALER INH SCH ×2 (08:23→19:26)
[2021-12-19] MEDS ORDERED: POTASSIUM CHLORIDE 10MEQ SR TABLET PO ONE (09:00)
[2021-12-19] MEDS: CYANOCOBALAMIN 500 MCG TAB PO SCH (09:02)
[2021-12-19] MEDS: SENOKOT S TAB PO SCH ×2 (09:02→20:44)
[2021-12-19] MEDS: TAMSULOSIN 0.4 MG CAP PO SCH (09:03)
[2021-12-19 09:28] LABS: BILIRUBIN, URINE MANUAL NEGATIVE (NEGATIVE); GLUCOSE, URINE (UA) MANUAL NEGATIVE (NEGATIVE); KETONE, URINE MANUAL NEGATIVE (NEGATIVE); UROBILINOGEN, URINE MANUAL NORMAL (NORMAL)
[2021-12-19 09:33] LABS: RBC, URINE TNTC /hpf (0-3)
[2021-12-19 09:34] LABS: SQUAMOUS EPITHELIAL CELL URINE SMALL AMOUNT /hpf (SMALL AMT)
[2021-12-19 09:35] LABS: BACTERIA, URINE MOD AMOUNT
[2021-12-19] MEDS ORDERED: LIDOCAINE 1% MDV 20ML VIAL As Ordered ONE (10:42)
[2021-12-19] MEDS ORDERED: LIDOCAINE 1% MDV 20ML VIAL SC ONE (10:45)
[2021-12-19] MEDS: ASPIRIN 81MG ENTERIC TABLET PO SCH ×2 (10:48→20:44)
[2021-12-19 11:29] LABS: SOURCE, BODY FLUID RT KNEE; SYNOVIAL FLUID COLOR YELLOW (COLORLESS)
[2021-12-19 11:30] LABS: SOURCE, BODY FLUID CRYSTALS RT KNEE
[2021-12-19] MEDS: PIPERACILLIN/TAZOBACTAM SOD 3.375 GM in D5W MINI-BAG PLUS 50 ML IV SCH ×3 (11:57→23:30)
[2021-12-19 12:13] LABS: SOURCE, BODY FLUID GLUCOSE RT KNEE; SOURCE, BODY FLUID URIC ACID RT KNEE; URIC ACID, BODY FLUID 20.5 MG/DL (NOT ESTABLISHED)
[2021-12-19] MEDS ORDERED: VANCOMYCIN HCL 1,000 MG, VIAL MATE ADAPTER 1 EACH in NS 250 ML IV ONE (13:00)
[2021-12-19] MEDS ORDERED: BISACODYL 10 MG SUPP PR PRN (13:30)
[2021-12-19 14:42] LABS: CRYSTALS, BODY FLUID URIC ACID (NONE SEEN)
[2021-12-19] MEDS ORDERED: NS 1,000 ML IV SCH (19:00)
[2021-12-19] MEDS ORDERED: SODIUM CHLORIDE 0.9% 1000ML IV ONE (19:00)
[2021-12-19 20:00] LABS: BASO % 0.2 % (0.0-1.0); HEMATOCRIT 31.2 % (42.0-52.0); HEMOGLOBIN 10.8 g/dl (13.5-17.5); LYMPH # 1.4 10^3/uL (1.5-5.0); LYMPH % 7.8 % (24.0-44.0); MEAN CORPUSCULAR HEMOGLOBIN 32.8 pg (27.0-33.0); MEAN CORPUSCULAR HGB CONC 34.6 g/dl (32.0-36.5); MEAN CORPUSCULAR VOLUME 94.8 fl (80.0-96.0); MONO % 8.7 % (2.0-8.0); NEUTROPHILS # 14.9 10^3/uL (1.5-8.5); NEUTROPHILS % 82.5 % (36.0-66.0); PLATELET COUNT, AUTOMATED 264 10^3/uL (150-450); RED BLOOD COUNT 3.29 10^6/uL (4.30-6.10); WHITE BLOOD COUNT 18.1 10^3/uL (4.0-10.0)
[2021-12-19] MEDS ORDERED: ACETAMINOPHEN *IV* 1,000 MG in IV 1 EA IV ONE (20:00)
[2021-12-19 20:17] LABS: ALBUMIN 2.6 GM/DL (3.2-5.2); BILIRUBIN,TOTAL 0.4 MG/DL (0.2-1.0); CALCIUM LEVEL 8.3 MG/DL (8.8-10.2); CREATININE FOR GFR 1.42 MG/DL (0.70-1.30); GLOMERULAR FILTRATION RATE 51.3 (>42); POTASSIUM SERUM 3.5 MEQ/L (3.5-5.1); TOTAL PROTEIN 6.3 GM/DL (6.4-8.2)
[2021-12-19 20:42] LABS: MONO # 1.6 10^3/uL (0.0-0.8)
[2021-12-19] MEDS: VANCOMYCIN HCL 1,000 MG, VIAL MATE ADAPTER 1 EACH in NS 250 ML IV SCH (20:43)
[2021-12-19] MEDS: FINASTERIDE 5MG TAB PO SCH (20:44)
[2021-12-19] MEDS: NS 1,000 ML IV SCH (23:30)
[2021-12-20] MEDS: RAMELTEON 8 MG TAB (ROZEREM) PO PRN ×2 (00:25→23:59)
[2021-12-20] MEDS: HEPARIN SOD (PORCINE) 5000UNITS/ML 1ML VIAL/SYRINGE SC SCH ×3 (05:54→20:57)
[2021-12-20] MEDS: PIPERACILLIN/TAZOBACTAM SOD 3.375 GM in D5W MINI-BAG PLUS 50 ML IV SCH ×4 (05:54→23:30)
[2021-12-20] MEDS: NS 1,000 ML IV SCH (05:58)
[2021-12-20 06:00] VITALS: BP 125/62
[2021-12-20 07:09] LABS: BASO % 0.2 % (0.0-1.0); EOS % 0.2 % (0.0-3.0); HEMATOCRIT 32.4 % (42.0-52.0); HEMOGLOBIN 10.5 g/dl (13.5-17.5); LYMPH # 1.4 10^3/uL (1.5-5.0); LYMPH % 8.9 % (24.0-44.0); MEAN CORPUSCULAR HGB CONC 32.4 g/dl (32.0-36.5); MEAN CORPUSCULAR VOLUME 95.6 fl (80.0-96.0); MONO # 1.3 10^3/uL (0.0-0.8); MONO % 8.1 % (2.0-8.0); NEUTROPHILS # 13.2 10^3/uL (1.5-8.5); NEUTROPHILS % 80.9 % (36.0-66.0); PLATELET COUNT, AUTOMATED 228 10^3/uL (150-450); RED BLOOD COUNT 3.39 10^6/uL (4.30-6.10); WHITE BLOOD COUNT 16.3 10^3/uL (4.0-10.0)
[2021-12-20] MEDS: TIOTROPIUM INHALER/CAPSULE (SPIRIVA) INH SCH (07:33)
[2021-12-20] MEDS: ADVAIR HFA 115/21MCG INHALER INH SCH ×2 (07:34→19:47)
[2021-12-20 07:50] LABS: ALBUMIN 2.5 GM/DL (3.2-5.2); ALT/SGPT 35 U/L (12-78); BILIRUBIN,TOTAL 0.4 MG/DL (0.2-1.0); BLOOD UREA NITROGEN 16 MG/DL (7-18); CALCIUM LEVEL 8.2 MG/DL (8.8-10.2); CARBON DIOXIDE LEVEL 24 MEQ/L (21-32); CHLORIDE LEVEL 107 MEQ/L (98-107); CREATININE FOR GFR 0.87 MG/DL (0.70-1.30); GLOMERULAR FILTRATION RATE > 60.0 (>42); GLUCOSE, FASTING 101 MG/DL (70-100); MAGNESIUM LEVEL 1.8 MG/DL (1.8-2.4); POTASSIUM SERUM 3.6 MEQ/L (3.5-5.1); SODIUM LEVEL 138 MEQ/L (136-145); TOTAL PROTEIN 5.5 GM/DL (6.4-8.2); URIC ACID 4.2 MG/DL (3.5-7.2)
[2021-12-20] MEDS: SENOKOT S TAB PO SCH ×2 (08:53→19:53)
[2021-12-20] MEDS: CYANOCOBALAMIN 500 MCG TAB PO SCH (08:53)
[2021-12-20] MEDS: ASPIRIN 81MG ENTERIC TABLET PO SCH ×2 (08:53→19:53)
[2021-12-20] MEDS: TAMSULOSIN 0.4 MG CAP PO SCH (08:53)
[2021-12-20 14:00] VITALS: BP 124/60
[2021-12-20] MEDS: ACETAMINOPHEN TAB 650MG DOSE (2X325MG) PO PRN (15:00)
[2021-12-20] MEDS: VANCOMYCIN HCL 1,000 MG, VIAL MATE ADAPTER 1 EACH in NS 250 ML IV SCH (15:00)
[2021-12-20 19:12] VITALS: BP 124/58
[2021-12-20] MEDS: FINASTERIDE 5MG TAB PO SCH (19:53)
[2021-12-20 22:00] VITALS: BP 124/59
[2021-12-21] MEDS: PIPERACILLIN/TAZOBACTAM SOD 3.375 GM in D5W MINI-BAG PLUS 50 ML IV SCH (05:28)
[2021-12-21] MEDS: HEPARIN SOD (PORCINE) 5000UNITS/ML 1ML VIAL/SYRINGE SC SCH ×3 (05:28→21:05)
[2021-12-21 06:00] VITALS: BP 131/60
[2021-12-21 07:24] LABS: BASO # 0.1 10^3/uL (0.0-0.2); BASO % 0.3 % (0.0-1.0); EOS # 0.1 10^3/uL (0.0-0.5); EOS % 0.3 % (0.0-3.0); HEMATOCRIT 28.9 % (42.0-52.0); HEMOGLOBIN 9.6 g/dl (13.5-17.5); LYMPH # 1.2 10^3/uL (1.5-5.0); LYMPH % 8.4 % (24.0-44.0); MEAN CORPUSCULAR HEMOGLOBIN 32.7 pg (27.0-33.0); MEAN CORPUSCULAR HGB CONC 33.2 g/dl (32.0-36.5); MEAN CORPUSCULAR VOLUME 98.3 fl (80.0-96.0); MONO # 0.9 10^3/uL (0.0-0.8); MONO % 6.2 % (2.0-8.0); NEUTROPHILS # 12.1 10^3/uL (1.5-8.5); NEUTROPHILS % 83.4 % (36.0-66.0); PLATELET COUNT, AUTOMATED 247 10^3/uL (150-450); RED BLOOD COUNT 2.94 10^6/uL (4.30-6.10); WHITE BLOOD COUNT 14.6 10^3/uL (4.0-10.0)
[2021-12-21] MEDS: TIOTROPIUM INHALER/CAPSULE (SPIRIVA) INH SCH (07:34)
[2021-12-21] MEDS: ADVAIR HFA 115/21MCG INHALER INH SCH ×2 (07:35→19:20)
[2021-12-21 07:42] LABS: BLOOD UREA NITROGEN 13 MG/DL (7-18); CALCIUM LEVEL 7.7 MG/DL (8.8-10.2); CARBON DIOXIDE LEVEL 25 MEQ/L (21-32); CHLORIDE LEVEL 105 MEQ/L (98-107); CREATININE FOR GFR 1.01 MG/DL (0.70-1.30); GLOMERULAR FILTRATION RATE > 60.0 (>42); GLUCOSE, FASTING 173 MG/DL (70-100); POTASSIUM SERUM 3.4 MEQ/L (3.5-5.1); SODIUM LEVEL 136 MEQ/L (136-145)
[2021-12-21 08:56] LABS: VANCOMYCIN RANDOM 7.3 UG/ML
[2021-12-21] MEDS ORDERED: VANCOMYCIN HCL 1,000 MG, VIAL MATE ADAPTER 1 EACH in NS 250 ML IV SCH (09:00)
[2021-12-21] MEDS: ASPIRIN 81MG ENTERIC TABLET PO SCH ×2 (09:32→20:31)
[2021-12-21] MEDS: TAMSULOSIN 0.4 MG CAP PO SCH (09:32)
[2021-12-21] MEDS: CYANOCOBALAMIN 500 MCG TAB PO SCH (09:32)
[2021-12-21] MEDS: SENOKOT S TAB PO SCH ×2 (09:32→20:30)
[2021-12-21] MEDS ORDERED: POTASSIUM CHLORIDE 10MEQ SR TABLET PO ONE (10:15)
[2021-12-21] MEDS: LevoFLOXacin 750 MG TABLET PO SCH (10:54)
[2021-12-21 14:00] VITALS: BP 124/61
[2021-12-21 20:00] VITALS: BP 125/60
[2021-12-21] MEDS: FINASTERIDE 5MG TAB PO SCH (20:30)
[2021-12-21] MEDS: RAMELTEON 8 MG TAB (ROZEREM) PO PRN (21:05)
[2021-12-22] MEDS: HEPARIN SOD (PORCINE) 5000UNITS/ML 1ML VIAL/SYRINGE SC SCH (05:58)
[2021-12-22] MEDS: LevoFLOXacin 750 MG TABLET PO SCH (05:58)
[2021-12-22 06:00] VITALS: BP 159/82
[2021-12-22] MEDS ORDERED: LevoFLOXacin 500 MG TABLET PO SCH (06:00)
[2021-12-22 06:09] LABS: BASO % 0.4 % (0.0-1.0); EOS # 0.1 10^3/uL (0.0-0.5); EOS % 1.2 % (0.0-3.0); HEMATOCRIT 30.8 % (42.0-52.0); HEMOGLOBIN 9.8 g/dl (13.5-17.5); LYMPH # 1.6 10^3/uL (1.5-5.0); MEAN CORPUSCULAR HEMOGLOBIN 30.7 pg (27.0-33.0); MEAN CORPUSCULAR HGB CONC 31.8 g/dl (32.0-36.5); MEAN CORPUSCULAR VOLUME 96.6 fl (80.0-96.0); MONO # 0.9 10^3/uL (0.0-0.8); MONO % 9.2 % (2.0-8.0); NEUTROPHILS % 72.1 % (36.0-66.0); PLATELET COUNT, AUTOMATED 269 10^3/uL (150-450); RED BLOOD COUNT 3.19 10^6/uL (4.30-6.10); WHITE BLOOD COUNT 9.7 10^3/uL (4.0-10.0)
[2021-12-22 06:42] LABS: BLOOD UREA NITROGEN 11 MG/DL (7-18); CALCIUM LEVEL 8.7 MG/DL (8.8-10.2); CARBON DIOXIDE LEVEL 27 MEQ/L (21-32); CHLORIDE LEVEL 107 MEQ/L (98-107); CREATININE FOR GFR 0.76 MG/DL (0.70-1.30); GLOMERULAR FILTRATION RATE > 60.0 (>42); GLUCOSE, FASTING 108 MG/DL (70-100); MAGNESIUM LEVEL 1.9 MG/DL (1.8-2.4); SODIUM LEVEL 141 MEQ/L (136-145)
[2021-12-22] MEDS: TIOTROPIUM INHALER/CAPSULE (SPIRIVA) INH SCH (07:08)
[2021-12-22] MEDS: ADVAIR HFA 115/21MCG INHALER INH SCH (07:08)
[2021-12-22] MEDS: CYANOCOBALAMIN 500 MCG TAB PO SCH (09:13)
[2021-12-22] MEDS: TAMSULOSIN 0.4 MG CAP PO SCH (09:13)
[2021-12-22] MEDS: ASPIRIN 81MG ENTERIC TABLET PO SCH (09:13)
[2021-12-22 09:14] VITALS: BP 129/61
[2021-12-22] MEDS: SENOKOT S TAB PO SCH (09:14)
[2021-12-22] MEDS ORDERED: LEVO750T13 PO (10:53)
[2021-12-22] MEDS ORDERED: FLOM0.4C39 PO (10:56)
[2021-12-22] MEDS ORDERED: FINA5TAB2 PO (11:14)
== END 2021-12-22 13:45 | disposition home or self-care (01) | DRG 696 ==
LOC: M ED 20:45 → M ED INP 12-16 01:53 → ENRESERV 12-16 06:48 → M ICU 12-16 11:26 → M MSPAV 12-17 19:55
PROVIDERS: ADMIT Family Medicine; ATTEND Internal Medicine
PROC: 0S9C3ZX Drainage of Right Knee Joint, Percutaneous Approach, Diagnostic (ICD-10-PCS; principal; 2021-12-19)
DX: R33.9 Retention of urine, unspecified (principal); N17.9 Acute kidney failure, unspecified; N13.30 Unspecified hydronephrosis; N39.0 Urinary tract infection, site not specified; E87.5 Hyperkalemia; Z85.46 Personal history of malignant neoplasm of prostate; N40.1 Benign prostatic hyperplasia with lower urinary tract symptoms; I10 Essential (primary) hypertension; Z20.822 Contact with and (suspected) exposure to COVID-19; Z79.82 Long term (current) use of aspirin; Z79.899 Other long term (current) drug therapy; K59.00 Constipation, unspecified; N32.0 Bladder-neck obstruction; B96.5 Pseudomonas (aeruginosa) (mallei) (pseudomallei) as the cause of diseases classified elsewhere; M17.11 Unilateral primary osteoarthritis, right knee

== ENCOUNTER → 2021-12-15 | Outpatient (CLI) | payer MEDICARE, OTHER | LOC: M ADAMS 15:38 | PROVIDERS: ATTEND Family Medicine | DX: R05.9 Cough, unspecified (principal); R60.0 Localized edema; J90 Pleural effusion, not elsewhere classified ==

== ENCOUNTER → 2021-12-15 | Outpatient (REF) | payer MEDICARE, OTHER ==
[2021-12-15 17:59] LABS: HEMATOCRIT 34.8 % (42.0-52.0); HEMOGLOBIN 11.7 g/dl (13.5-17.5); MEAN CORPUSCULAR HGB CONC 33.6 g/dl (32.0-36.5); MEAN CORPUSCULAR VOLUME 95.1 fl (80.0-96.0); PLATELET COUNT, AUTOMATED 228 10^3/uL (150-450); RED BLOOD COUNT 3.66 10^6/uL (4.30-6.10); WHITE BLOOD COUNT 6.2 10^3/uL (4.0-10.0)
[2021-12-15 18:09] LABS: APPEARANCE, URINE HAZY (CLEAR); BACTERIA, URINE AUTO NEGATIVE (NEGATIVE); BILIRUBIN, URINE AUTO NEGATIVE (NEGATIVE); BLOOD, URINE BLOOD 3+ (NEGATIVE); COLOR, URINE YELLOW (YELLOW); GLUCOSE, URINE (UA) AUTO NEGATIVE (NEGATIVE); KETONE, URINE AUTO NEGATIVE (NEGATIVE); LEUKOCYTE ESTERASE, URINE AUTO 2+ (NEGATIVE); MUCUS, URINE SMALL (NEGATIVE); NITRITE, URINE AUTO NEGATIVE (NEGATIVE); PROTEIN, URINE AUTO NEGATIVE (NEGATIVE); RBC, URINE AUTO 42 /HPF (0-3); SPECIFIC GRAVITY URINE AUTO 1.008 (1.002-1.035); SQUAMOUS EPITHELIAL CELL UR AU 0 /HPF (0-6); UROBILINOGEN, URINE AUTO 0.2 mg/dL (0.0-2.0); WBC, URINE AUTO 36 /HPF (0-3)
[2021-12-15 19:14] LABS: ALBUMIN 3.3 GM/DL (3.2-5.2); BILIRUBIN,TOTAL 0.2 MG/DL (0.2-1.0); CALCIUM LEVEL 8.5 MG/DL (8.8-10.2); CREATININE FOR GFR 13.2 MG/DL (0.70-1.30); GLOMERULAR FILTRATION RATE 3.9 (>42); POTASSIUM SERUM 6.1 MEQ/L (3.5-5.1); TOTAL PROTEIN 6.3 GM/DL (6.4-8.2)
== END ==
LOC: M SFHCADAM 15:28
PROVIDERS: ATTEND Family Medicine
DX: R19.7 Diarrhea, unspecified (principal); R05.9 Cough, unspecified; R60.0 Localized edema; R33.9 Retention of urine, unspecified

== ENCOUNTER → 2022-01-06 | Outpatient (REF) | payer MEDICARE, OTHER ==
[~2022-01-06] MED LIST changes: +ACET25TA12 PO; +ALBU8.5H INH; +ASPI-161 PO; +FINA5TAB2 PO; +FLOM0.4C39 PO; +LEVO750T13 PO; +LOSA25TA13 PO; +VITA500T41 PO
[2022-01-06 16:36] LABS: HEMATOCRIT 41.3 % (42.0-52.0); HEMOGLOBIN 13.6 g/dl (13.5-17.5); MEAN CORPUSCULAR HEMOGLOBIN 30.9 pg (27.0-33.0); MEAN CORPUSCULAR HGB CONC 32.9 g/dl (32.0-36.5); MEAN CORPUSCULAR VOLUME 93.9 fl (80.0-96.0); PLATELET COUNT, AUTOMATED 348 10^3/uL (150-450); WHITE BLOOD COUNT 7.4 10^3/uL (4.0-10.0)
[2022-01-06 17:05] LABS: CALCIUM LEVEL 9.8 MG/DL (8.8-10.2); CREATININE FOR GFR 1.26 MG/DL (0.70-1.30); GLOMERULAR FILTRATION RATE 58.9 (>42); POTASSIUM SERUM 4.6 MEQ/L (3.5-5.1)
== END ==
LOC: M SFHCADAM 14:54
PROVIDERS: ATTEND Family Medicine
DX: N17.9 Acute kidney failure, unspecified (principal); R33.8 Other retention of urine

== ENCOUNTER → 2022-04-10 | Outpatient (REF) | payer MEDICARE, OTHER ==
[~2022-04-10] MED LIST changes: +LEVO1TAB40 PO; -LEVO750T13 PO
== END ==
LOC: M WUC 17:23
PROVIDERS: ATTEND Student in an Organized Health Care Education/Training Program
DX: R30.0 Dysuria (principal)

== ENCOUNTER → 2022-04-20 | Outpatient (CLI) | payer MEDICARE, OTHER | LOC: M SOG 08:12 | PROVIDERS: ATTEND Orthopaedic Surgery Adult Reconstructive Orthopaedic Surgery | DX: M17.12 Unilateral primary osteoarthritis, left knee (principal); Z87.828 Personal history of other (healed) physical injury and trauma; Z98.890 Other specified postprocedural states ==

== ENCOUNTER → 2022-08-02 | Outpatient (CLI) | payer MEDICARE, OTHER ==
[2022-08-02 06:59] LABS: HEMOGLOBIN 14.4 g/dl (13.5-17.5); MEAN CORPUSCULAR HEMOGLOBIN 32.7 pg (27.0-33.0); MEAN CORPUSCULAR HGB CONC 34.3 g/dl (32.0-36.5); MEAN CORPUSCULAR VOLUME 95.5 fl (80.0-96.0); PLATELET COUNT, AUTOMATED 196 10^3/uL (150-450); WHITE BLOOD COUNT 5.3 10^3/uL (4.0-10.0)
[2022-08-02 07:13] LABS: ALBUMIN 3.7 G/DL (3.2-5.2); ALKALINE PHOSPHATASE 52 U/L (46-116); ALT/SGPT 17 U/L (7.0-40); AST/SGOT 22 U/L (<34); BILIRUBIN,TOTAL 0.5 MG/DL (0.3-1.2); BLOOD UREA NITROGEN 17 MG/DL (9-23); CALCIUM LEVEL 9.2 MG/DL (8.3-10.6); CARBON DIOXIDE LEVEL 28 MMOL/L (20-31); CHLORIDE LEVEL 105 MMOL/L (98-107); CHOLESTEROL LEVEL 151 MG/DL (<200); CHOLESTEROL RISK RATIO 2.56 (<5); CREATININE FOR GFR 0.82 MG/DL (0.70-1.30); GLOMERULAR FILTRATION RATE > 60.0 (>42); GLUCOSE, FASTING 97 MG/DL (74-106); HDL CHOLESTEROL 58.9 MG/DL (>40); LDL CHOLESTEROL 81.3 MG/DL (<100); NON-HDL-C 92 MG/DL; POTASSIUM SERUM 4.3 MMOL/L (3.5-5.1); SODIUM LEVEL 138 MMOL/L (136-145); TOTAL PROTEIN 6.7 G/DL (5.7-8.2); TRIGLYCERIDES LEVEL 54 MG/DL (<150)
[2022-08-02 08:28] LABS: HEMOGLOBIN A1c 4.9 % (4.0-6.0)
== END ==
LOC: M LAB 06:08
PROVIDERS: ATTEND Family Medicine
DX: Z13.1 Encounter for screening for diabetes mellitus (principal); I11.9 Hypertensive heart disease without heart failure; E53.8 Deficiency of other specified B group vitamins; E78.5 Hyperlipidemia, unspecified; Z79.899 Other long term (current) drug therapy

== ENCOUNTER → 2022-11-01 | Outpatient (REF) | payer MEDICARE, OTHER ==
[2022-11-01 18:11] LABS: HEMOGLOBIN 14.6 g/dl (13.5-17.5); MEAN CORPUSCULAR HEMOGLOBIN 33.3 pg (27.0-33.0); MEAN CORPUSCULAR VOLUME 98.2 fl (80.0-96.0); PLATELET COUNT, AUTOMATED 217 10^3/uL (150-450); RED BLOOD COUNT 4.38 10^6/uL (4.30-6.10); WHITE BLOOD COUNT 9.3 10^3/uL (4.0-10.0)
[2022-11-01 18:33] LABS: ALBUMIN 4.1 G/DL (3.2-5.2); BILIRUBIN,TOTAL 0.5 MG/DL (0.3-1.2); CALCIUM LEVEL 9.3 MG/DL (8.3-10.6); CHOLESTEROL RISK RATIO 2.42 (<5); CREATININE FOR GFR 1.24 MG/DL (0.70-1.30); GLOMERULAR FILTRATION RATE 59.9 (>42); HDL CHOLESTEROL 61.8 MG/DL (>40); NON-HDL-C 88.2 MG/DL; POTASSIUM SERUM 4.2 MMOL/L (3.5-5.1)
== END ==
LOC: M SFHCADAM 14:18
PROVIDERS: ATTEND Family Medicine
DX: M25.552 Pain in left hip (principal); I11.9 Hypertensive heart disease without heart failure; E53.8 Deficiency of other specified B group vitamins; E78.5 Hyperlipidemia, unspecified

== ENCOUNTER → 2022-11-08 | Outpatient (CLI) | payer MEDICARE, OTHER | LOC: M WHC 12:14 | PROVIDERS: ATTEND Family Medicine | DX: M79.89 Other specified soft tissue disorders (principal) ==

== ENCOUNTER → 2023-01-12 | Outpatient (CLI) | payer MEDICARE, OTHER ==
[~2023-01-12] MED LIST changes: -LOSA100T45 PO; +LOSA100T46 PO
== END ==
LOC: M RAD 15:08
PROVIDERS: ATTEND Orthopaedic Surgery
DX: M54.16 Radiculopathy, lumbar region (principal); M47.896 Other spondylosis, lumbar region

== ENCOUNTER → 2023-10-30 | Outpatient (CLI) | payer MEDICARE, OTHER ==
[~2023-10-30] MED LIST changes: -ASPI-161 PO; +ASPI-615 PO; -COZA1TAB PO; +LOSA-527 PO
[2023-10-30 07:26] LABS: HEMOGLOBIN 13.9 g/dl (13.5-17.5); MEAN CORPUSCULAR HEMOGLOBIN 33.1 pg (27.0-33.0); MEAN CORPUSCULAR HGB CONC 34.8 g/dl (32.0-36.5); MEAN CORPUSCULAR VOLUME 95.2 fl (80.0-96.0); PLATELET COUNT, AUTOMATED 201 10^3/uL (150-450); WHITE BLOOD COUNT 7.2 10^3/uL (4.0-10.0)
[2023-10-30 07:49] LABS: HEMOGLOBIN A1c 5.2 % (4.0-6.0)
[2023-10-30 07:57] LABS: ALBUMIN 3.5 G/DL (3.2-5.2); ALKALINE PHOSPHATASE 61 U/L (46-116); ALT/SGPT 18 U/L (7.0-40); AST/SGOT 14 U/L (<34); BILIRUBIN,TOTAL 0.6 MG/DL (0.3-1.2); BLOOD UREA NITROGEN 15 MG/DL (9-23); CARBON DIOXIDE LEVEL 28 MMOL/L (20-31); CHLORIDE LEVEL 101 MMOL/L (98-107); CHOLESTEROL LEVEL 138 MG/DL (<200); CHOLESTEROL RISK RATIO 2.22 (<5); GLOMERULAR FILTRATION RATE > 60.0 (>35); GLUCOSE, FASTING 99 MG/DL (74-106); HDL CHOLESTEROL 62.1 MG/DL (>40); LDL CHOLESTEROL 69.3 MG/DL (<100); NON-HDL-C 75.9 MG/DL; POTASSIUM SERUM 4.4 MMOL/L (3.5-5.1); SODIUM LEVEL 134 MMOL/L (136-145); TOTAL PROTEIN 6.4 G/DL (5.7-8.2); TRIGLYCERIDES LEVEL 33 MG/DL (<150)
[2023-10-30 07:59] LABS: FOLATE > 24.00 NG/ML (>5.4); VITAMIN B12 LEVEL 520 PG/ML (211-911)
== END ==
LOC: M LAB 06:18
PROVIDERS: ATTEND Family Medicine
DX: E78.5 Hyperlipidemia, unspecified (principal); E53.8 Deficiency of other specified B group vitamins; Z13.1 Encounter for screening for diabetes mellitus; Z79.899 Other long term (current) drug therapy

== ENCOUNTER 2023-12-30 10:48 | Emergency (ER) | payer MEDICARE, OTHER ==
[~2023-12-30] VITALS: Ht 177.8 cm; Wt 95.4 kg
[~2023-12-30 10:48] MED LIST changes: -EPLE25TA PO; +EPLE25TA2 PO; -SILO8CAP; +SILO8CAP3
[2023-12-30 11:35] LABS: VENOUS BASE EXCESS -1.3 (-2.0-2.0); VENOUS O2 SATURATION 97.9 % (60.0-80.0); VENOUS PARTIAL PRESSURE CO2 33.2 mmHg (38.0-50.0); VENOUS PARTIAL PRESSURE O2 99.7 mmHg (30.0-50.0); VENOUS PH 7.439 UNITS (7.330-7.430); VENOUS STANDARD HCO3 23.4 MMOL/L
[2023-12-30 11:40] LABS: BASO % 0.2 % (0.0-1.0); EOS % 0.1 % (0.0-3.0); HEMATOCRIT 39.7 % (42.0-52.0); HEMOGLOBIN 14.2 g/dl (13.5-17.5); LYMPH # 1.7 10^3/uL (1.5-5.0); MEAN CORPUSCULAR HGB CONC 35.8 g/dl (32.0-36.5); MEAN CORPUSCULAR VOLUME 92.3 fl (80.0-96.0); MONO # 0.6 10^3/uL (0.0-0.8); MONO % 6.5 % (2.0-8.0); NEUTROPHILS # 6.3 10^3/uL (1.5-8.5); NEUTROPHILS % 71.9 % (36.0-66.0); PLATELET COUNT, AUTOMATED 202 10^3/uL (150-450); WHITE BLOOD COUNT 8.7 10^3/uL (4.0-10.0)
[2023-12-30 12:14] LABS: CPK CREATINE PHOSPHOKINASE 254 U/L (46-171)
[2023-12-30 12:15] LABS: ALBUMIN 3.9 G/DL (3.2-5.2); ALKALINE PHOSPHATASE 45 U/L (46-116); ALT/SGPT 31 U/L (7.0-40); AST/SGOT 29 U/L (<34); BILIRUBIN,DIRECT 0.2 MG/DL (<0.4); BILIRUBIN,TOTAL 0.7 MG/DL (0.3-1.2); BLOOD UREA NITROGEN 17 MG/DL (9-23); CARBON DIOXIDE LEVEL 25 MMOL/L (20-31); CHLORIDE LEVEL 96 MMOL/L (98-107); CK-MB VALUE MASS 3.3 NG/ML (<3.6); CREATININE FOR GFR 0.74 MG/DL (0.70-1.30); GLOMERULAR FILTRATION RATE > 60.0 (>35); GLUCOSE, FASTING 106 MG/DL (74-106); MB/CK RELATIVE INDEX 1.29 (< OR =4); POTASSIUM SERUM 4.5 MMOL/L (3.5-5.1); SODIUM LEVEL 128 MMOL/L (136-145); TOTAL PROTEIN 6.6 G/DL (5.7-8.2)
[2023-12-30 12:17] LABS: THYROID STIMULATING HORMONE 0.937 uIU/ML (0.55-4.78)
[2023-12-30] MEDS: IPRATROPIUM 0.5MG/ALBUTEROL 2.5MG INH SOL UD 3ML (DUONEB) NEB ONE (12:59)
[2023-12-30] MEDS: ALBUTEROL SULFATE 2.5MG/0.5ML INH NEB SOLN INH ONE (12:59)
[2023-12-30] MEDS ORDERED: ISOVUE-370 76% 100ML VIAL As Ordered ONE (14:04)
[2023-12-30] MEDS: methylPREDNISolone 125MG 2ML VIAL IV ONE (14:41)
[2023-12-30 16:15] VITALS: TEMP 98.3
[2023-12-30] MEDS ORDERED: PRED10TA2 PO (16:39)
[2023-12-30 16:46] VITALS: O2SAT 95
[2023-12-30] MEDS ORDERED: FINA5TAB2 PO (16:49)
[2023-12-30] MEDS ORDERED: FLOM0.4C39 PO (16:49)
[2023-12-30] MEDS ORDERED: BENZ200C70 PO (16:49)
[2023-12-30] MEDS ORDERED: HOME MED LIST COMPLETE! XX SCH (16:50)
[2023-12-30 16:52] VITALS: BP 145/68
== END 2023-12-30 17:04 | disposition home or self-care (01) ==
LOC: M ED 10:48
DX: J12.2 Parainfluenza virus pneumonia (principal); I44.0 Atrioventricular block, first degree; I10 Essential (primary) hypertension; J45.909 Unspecified asthma, uncomplicated; Z79.1 Long term (current) use of non-steroidal anti-inflammatories (NSAID); Z79.51 Long term (current) use of inhaled steroids; Z79.52 Long term (current) use of systemic steroids; Z79.899 Other long term (current) drug therapy
CPT/HCPCS: 36415; 71045; 71275; 80048; 80076; 82550; 82553; 82803; 83605; 83880; 84436; 84443; 84484; 85025; 87040; 87486; 87581; 87633; 87798; 93005; 93041; 94640; 94760; 96374; 99285; J2919; Q9967

== ENCOUNTER 2024-06-01 11:46 | Emergency (ER) | payer MEDICARE, OTHER ==
[~2024-06-01] VITALS: Ht 177.8 cm; Wt 97.9 kg
[~2024-06-01 11:46] MED LIST changes: +GABA-1172 PO; -GABA-282 PO; +PRED10TA2 PO
[2024-06-01 13:21] LABS: CK-MB VALUE MASS 1.7 NG/ML (<3.6)
[2024-06-01 13:26] LABS: MB/CK RELATIVE INDEX 1.71 (< OR =4)
[2024-06-01 14:20] VITALS: BP 147/79; TEMP 97.1; O2SAT 96
== END 2024-06-01 14:50 | disposition home or self-care (01) ==
LOC: M ED 11:46
DX: M94.0 Chondrocostal junction syndrome [Tietze] (principal); V43.52XA Car driver injured in collision with other type car in traffic accident, initial encounter; Y92.9 Unspecified place or not applicable; Y93.9 Activity, unspecified; Y99.9 Unspecified external cause status; I10 Essential (primary) hypertension; N40.0 Benign prostatic hyperplasia without lower urinary tract symptoms; Z79.82 Long term (current) use of aspirin; Z79.899 Other long term (current) drug therapy

== ENCOUNTER → 2024-06-20 | Outpatient (CLI) | payer MEDICARE, OTHER ==
[2024-06-20 07:06] LABS: HEMATOCRIT 40.8 % (42.0-52.0); HEMOGLOBIN 13.8 g/dl (13.5-17.5); MEAN CORPUSCULAR HEMOGLOBIN 33.1 pg (27.0-33.0); MEAN CORPUSCULAR HGB CONC 33.8 g/dl (32.0-36.5); MEAN CORPUSCULAR VOLUME 97.8 fl (80.0-96.0); PLATELET COUNT, AUTOMATED 190 10^3/uL (150-450); RED BLOOD COUNT 4.17 10^6/uL (4.30-6.10); WHITE BLOOD COUNT 6.6 10^3/uL (4.0-10.0)
[2024-06-20 07:26] LABS: ALBUMIN 3.8 G/DL (3.2-5.2); ALKALINE PHOSPHATASE 52 U/L (40-129); ALT/SGPT 20 U/L (7.0-40); AST/SGOT 13 U/L (<34); BILIRUBIN,TOTAL 0.6 MG/DL (0.3-1.2); BLOOD UREA NITROGEN 16 MG/DL (9-23); CALCIUM LEVEL 9.6 MG/DL (8.3-10.6); CARBON DIOXIDE LEVEL 28 MMOL/L (20-31); CHLORIDE LEVEL 103 MMOL/L (98-107); CHOLESTEROL LEVEL 149 MG/DL (<200); CHOLESTEROL RISK RATIO 2.15 (<5); CREATININE FOR GFR 1.04 MG/DL (0.70-1.30); GLOMERULAR FILTRATION RATE > 60.0 (>35); GLUCOSE, FASTING 91 MG/DL (74-106); HDL CHOLESTEROL 69.3 MG/DL (>40); LDL CHOLESTEROL 68.3 MG/DL (<100); NON-HDL-C 79.7 MG/DL; POTASSIUM SERUM 4.5 MMOL/L (3.5-5.1); SODIUM LEVEL 134 MMOL/L (136-145); TOTAL PROTEIN 6.8 G/DL (5.7-8.2); TRIGLYCERIDES LEVEL 57 MG/DL (<150)
== END ==
LOC: M LAB 06:09
PROVIDERS: ATTEND Family Medicine
DX: E78.5 Hyperlipidemia, unspecified (principal); I11.9 Hypertensive heart disease without heart failure; C61 Malignant neoplasm of prostate

== ENCOUNTER → 2024-09-19 | Outpatient (REF) | payer MEDICARE, OTHER ==
[~2024-09-19] MED LIST changes: +EPLE25TA15 PO; -EPLE25TA2 PO
[2024-09-19 17:01] LABS: HEMATOCRIT 41.5 % (42.0-52.0); HEMOGLOBIN 15.1 g/dl (13.5-17.5); MEAN CORPUSCULAR HEMOGLOBIN 34.8 pg (27.0-33.0); MEAN CORPUSCULAR HGB CONC 36.4 g/dl (32.0-36.5); MEAN CORPUSCULAR VOLUME 95.6 fl (80.0-96.0); PLATELET COUNT, AUTOMATED 214 10^3/uL (150-450); RED BLOOD COUNT 4.34 10^6/uL (4.30-6.10); WHITE BLOOD COUNT 8.5 10^3/uL (4.0-10.0)
[2024-09-19 17:05] LABS: ALBUMIN 4.2 G/DL (3.2-5.2); ALKALINE PHOSPHATASE 41 U/L (40-129); ALT/SGPT 22 U/L (7.0-40); AST/SGOT 25 U/L (<34); BILIRUBIN,TOTAL 0.8 MG/DL (0.3-1.2); BLOOD UREA NITROGEN 20 MG/DL (9-23); CARBON DIOXIDE LEVEL 28 MMOL/L (20-31); CHLORIDE LEVEL 100 MMOL/L (98-107); CREATININE FOR GFR 0.83 MG/DL (0.70-1.30); GLOMERULAR FILTRATION RATE > 60.0 (>35); GLUCOSE, FASTING 96 MG/DL (74-106); SODIUM LEVEL 135 MMOL/L (136-145); TOTAL PROTEIN 6.9 G/DL (5.7-8.2)
[2024-09-19 17:15] LABS: INR 1.74; PARTIAL THROMBOPLASTIN TIME 50.1 SECONDS (24.8-34.2); PROTHROMBIN TIME 20.5 SECONDS (12.5-14.5)
== END ==
LOC: M SFHCADAM 12:00
PROVIDERS: ATTEND Family Medicine
DX: I11.9 Hypertensive heart disease without heart failure (principal); R94.39 Abnormal result of other cardiovascular function study

== ENCOUNTER 2025-07-31 06:11 | Emergency (ER) | payer MEDICARE, OTHER ==
[~2025-07-31] VITALS: Ht 177.8 cm; Wt 86.2 kg
[~2025-07-31 06:11] MED LIST changes: -FLOM0.4C39 PO; +TAMS-18 PO
[2025-07-31 06:14] VITALS: BP 117/84; O2SAT 96
[2025-07-31 08:26] LABS: BASO # 0.0 10^3/uL (0.0-0.2); BASO % 0.4 % (0.0-1.0); EOS # 0.2 10^3/uL (0.0-0.5); EOS % 2.6 % (0.0-3.0); LYMPH # 0.9 10^3/uL (1.5-5.0); LYMPH % 11.9 % (24.0-44.0); MONO # 0.9 10^3/uL (0.0-0.8); MONO % 12.7 % (2.0-8.0); NEUTROPHILS # 5.2 10^3/uL (1.5-8.5); NEUTROPHILS % 71.8 % (36.0-66.0); PLATELET COUNT, AUTOMATED 154 10^3/uL (150-450)
[2025-07-31 08:50] LABS: CALCIUM LEVEL 8.6 MG/DL (8.3-10.6); CARBON DIOXIDE LEVEL 29.0 MMOL/L (20-31); CHLORIDE LEVEL 98.0 MMOL/L (98-107); CREATININE FOR GFR 0.88 MG/DL (0.70-1.30); GLOMERULAR FILTRATION RATE 85.9 (>35); POTASSIUM SERUM 4.0 MMOL/L (3.5-5.1); SODIUM LEVEL 132.0 MMOL/L (136-145)
[2025-07-31 09:33] VITALS: TEMP 99.1
== END 2025-07-31 09:43 | disposition home or self-care (01) ==
LOC: M ED 06:11
DX: J09.X2 Influenza due to identified novel influenza A virus with other respiratory manifestations (principal); J20.5 Acute bronchitis due to respiratory syncytial virus; I10 Essential (primary) hypertension; J45.909 Unspecified asthma, uncomplicated; Z79.82 Long term (current) use of aspirin; Z79.899 Other long term (current) drug therapy